=== PATIENT | male | born 1955 | race Caucasian/White ===

== ENCOUNTER 2022-10-17 11:13 | Emergency (ER) | payer MEDICARE, OTHER, SELFPAY ==
[2022-10-17 11:52] VITALS: BP 131/66; PULSE 104; RESP 15; TEMP 37.1; O2SAT 99; BMI 26.9
--- NOTE | 2022-10-17 12:07 | W.ED.MALEGU ---
HPI - Male Genitourinary General: Chief complaint: Urogenital-Male Stated complaint: urinary pain Time Seen by Provider: 10/17/22 12:03 Source: patient Mode of arrival: EMS History of Present Illness: 67-year-old male presents emergency room unable to urinate. He gets a little bit of urine from the bladder at a time but last 3 days he has not been able to empty his bladder completely. No hematuria. He does have a history of BPH. He states he had several falls ultimately resulting in him being unable to move his right leg only. He has no other deficits. He tells me he has had extensive evaluation and they found no cause for. He states he occasionally can move the right leg a little bit but has no functional use of he is reliant on a wheelchair now. Up till now he is not had neurogenic bladder, but he has had enlarged prostate issues. In the past he has never had urinary retention. Onset (ago): day(s) (3) Duration: constant Location: abdomen Severity: moderate Quality: aching Relieving factors: none Exacerbating factors: none Associated symptoms: Deny discharge, dysuria, fevers/chills, hematuria, nausea, rash, swelling, urinary retention, mass or vomiting Review of Systems Const: Denies: fever(s), chills, body aches, change in appetite, fatigue or malaise ENMT: Denies: throat pain, ear or mastoid pain, nasal discharge or nasal congestion Card: Denies: chest pain, palpitations, edema, dyspnea on exertion or orthopnea Resp: Denies: dyspnea, productive cough or non-productive cough GI: Reports: abdominal pain; Denies: nausea or vomiting : Reports: difficulty urinating, difficulty starting urination and oliguria; Denies: dysuria or hematuria Skin/Breast: Denies: rash or pruritus PFSH ED PFSH: Medical History (Updated 10/17/22 @ 16:05 by Hilario Gallagher DO) BPH (benign prostatic hyperplasia) Paralysis of right lower extremity Social History (Updated 10/17/22 @ 12:26 by Hilario Gallagher DO) Smoking and tobacco status: current every day smoker Alcohol intake: never Physical Exam Const: GENERAL APPEARANCE: cooperative and comfortable ORIENTATION/CONSCIOUSNESS: Yes awake, Yes oriented to person, Yes oriented to place and Yes oriented to time HENMT: COMMON NORMALS: normocephalic, atraumatic and hearing grossly normal bilaterally HEAD & SCALP: normocephalic and atraumatic Resp: COMMON NORMALS: normal respiratory effort, No retractions, No use of accessory muscles and clear to auscultation bilaterally AUSCULTATION: clear to auscultation bilaterally Cardio: COMMON NORMALS: regular rate, regular rhythm and No murmurs present (Cardio) RATE: regular rate RHYTHM: regular rhythm GI: COMMON NORMALS: No hepatosplenomegaly present AUSCULTATION: Yes normoactive bowel sounds PALPATION: Yes Tenderness to palpation present (GI) (Suprapubic with the bladder palpable to the level of the umbilicus), No Guarding due to palpation present (GI) and Yes No hepatosplenomegaly present Extremity: COMMON NORMALS: normal to inspection, capillary refill normal, no clubbing, cyanosis or edema, no calf tenderness and no pedal edema Neuro: SENSORIUM/ORIENTATION: Yes oriented to person, Yes oriented to place and Yes oriented to time Skin: COMMON NORMALS: no rashes or lesions noted GENERAL SKIN EXAM: no rashes or lesions noted Course Vital Signs: Vital signs: Vital Signs Temperature 98.7 F 10/17/22 11:52 Pulse Rate 110 H 10/17/22 17:14 Respiratory Rate 15 10/17/22 11:52 Blood Pressure 131/66 10/17/22 11:52 Pulse Oximetry 98 10/17/22 17:14 Oxygen Delivery Me thod 10/17/22 17:14 MDM - Male Medical Decision Making Labs and imaging reviewed. Initially thought patient had urinary obstruction placed a Nunez and he had very little return. He does feel better after fluids. He would like to go home he was given dose of IV antibiotics we will discharge home on Cipro return if has any worsening of symptoms. Nunez removed prior to discharge. Medical Records I reviewed the patient's medical records. Lab Data I reviewed the patient's lab results. 10/17/22 12:45 10/17/22 12:45 Radiology Impressions Abdomen/Pelvis CT 10/17/22 12:33 IMPRESSION: 1. No renal obstruction. 2. Nunez catheter in a nondistended urinary bladder. 3. Postsurgical changes upper pole RIGHT kidney with partial nephrectomy. No prior studies for comparison to evaluate for subtle change. 4. Prior cholecystectomy and appendectomy. 5. Distal colon diverticulosis without acute diverticulitis. Laboratory Results WBC 15.0 10^3/uL (4.0-10.0) H 10/17/22 12:45 RBC 6.09 10^6/uL (4.1-5.3) H 10/17/22 12:45 Hgb 18.2 g/dL (11.7-16.6) H 10/17/22 12:45 Hct 54.0 % (42.0-52.0) H 10/17/22 12:45 MCV 88.7 fl (80-94) 10/17/22 12:45 MCH 29.9 pg (28.0-34.0) 10/17/22 12:45 MCHC 33.7 g/dL (30.0-36.0) 10/17/22 12:45 RDW 13.4 % (12.1-15.1) 10/17/22 12:45 Plt Count 186 10^3/cmm (130-400) 10/17/22 12:45 MPV 9.3 fL (7.4-10.4) 10/17/22 12:45 Neut % (Auto) 73.1 % 10/17/22 12:45 Lymph % (Auto) 15.7 % 10/17/22 12:45 Hendry % (Auto) 10.0 % 10/17/22 12:45 Eos % (Auto) 0.4 % 10/17/22 12:45 Baso % (Auto) 0.3 % 10/17/22 12:45 Neut # (Auto) 10.94 10^3/uL (1.8-7.7) H 10/17/22 12:45 Lymph # (Auto) 2.3 10^3/uL (0.8-4.8) 10/17/22 12:45 Hendry # (Auto) 1.5 10^3/uL (0.2-0.9) H 10/17/22 12:45 Eos # (Auto) 0.1 10^3/uL (0.0-0.8) 10/17/22 12:45 Baso # (Auto) 0.0 10^3/uL (0.0-0.1) 10/17/22 12:45 Nucleated RBC % (auto) 0 % 10/17/22 12:45 Nucleated RBCs # 0.0 /100WBC 10/17/22 12:45 Sodium 137 mmol/L (136-145) 10/17/22 12:45 Potassium 4.4 mmol/L (3.5-5.1) 10/17/22 12:45 Chloride 98 mmol/L (98-107) 10/17/22 12:45 Carbon Dioxide 28 mmol/L (22-29) 10/17/22 12:45 Anion Gap 15.4 (5-19) 10/17/22 12:45 BUN 18 mg/dL (8-23) 10/17/22 12:45 Creatinine 0.8 mg/dL (0.7-1.2) 10/17/22 12:45 GFR Calculation 97.0 mL/min (90-130) 10/17/22 12:45 Glucose 90 mg/dL (65-115) 10/17/22 12:45 Calculated Osmolality 285 mOsm/kg (285-295) 10/17/22 12:45 Calcium 9.8 mg/dL (8.5-10.5) 10/17/22 12:45 Urine Color Tatiana (Yellow) 10/17/22 12:30 Urine Appearance Clear (CLEAR) 10/17/22 12:30 Urine pH 5 (5-7) 10/17/22 12:30 Ur Specific [place] 1.020 (1.005-1.030) 10/17/22 12:30 Urine Protein 1+ (Negative) H 10/17/22 12:30 Urine Glucose (UA) Norm (Normal) 10/17/22 12:30 Urine Ketones 1+ (Negative) H 10/17/22 12:30 Urine Blood 3+ (Negative) H 10/17/22 12:30 Urine Nitrate Negative (Negative) 10/17/22 12:30 Urine Bilirubin Neg (Negative) 10/17/22 12:30 Urine Urobilinogen 1 mg/dL (Negative) H 10/17/22 12:30 Ur Leukocyte Esterase 2+ (Negative) H 10/17/22 12:30 Urine RBC 5-10 /hpf (0-2) H 10/17/22 12:30 Urine WBC 15-25 /hpf (0-5) H 10/17/22 12:30 Ur Squamous Epith Cells 0-4 /hpf (0-5) H 10/17/22 12:30 Amorphous Sediment Not Reportable 10/17/22 12:30 Urine Bacteria 3+ /hpf (NONE) H 10/17/22 12:30 Discharge Plan Discharge Patient Disposition: Home Clinical Impression: Cystitis Condition: Stable Prescriptions: New Cipro 500 mg tablet 500 mg PO BID 10 Days Qty: 20 0RF No Action Sleep Aid (diphenhydramine) 50 mg Capsule 50 mg PO QPM PRN (Reason: Sleep) sertraline 100 mg Tablet 100 mg PO DAILY Stool Softener 50 mg Capsule 50 mg PO DAILY tamsulosin 0.4 mg Capsule 0.8 mg PO DAILY ibuprofen 600 mg Tablet 600 mg PO Q6H PRN (Reason: Pain) finasteride 5 mg Tablet 5 mg PO DAILY Excedrin Migraine 250-250-65 mg Tablet 2 tab PO Q6H PRN (Reason: Headache) Vitamin D3 50 mcg (2,000 unit) Capsule 50 mcg PO DAILY Discharge Orders: Discharge ED (Routine); Ordered 10/17/22 Ordered By: Hilario Gallagher Discharge Diet: Usual diet Discharge Activity: Resume usual activity Activity Restrictions/Additional Instructions: You are seen in the emergency room for difficulty with urination. And found to have a bladder infection. Recommend starting Cipro 500 twice a day for 10 days follow-up with your primary care doctor. Coding Level of Care Code ED [employer] Operator for Anali Fwd Exam Detailed
--- NOTE | 2022-10-17 12:33 | CT_ITS ---
WS: [id number] CT ABDOMEN AND PELVIS NONCONTRAST HISTORY: urinary retention TECHNIQUE: Imaging performed through the abdomen and pelvis. Coronal and sagittal reformats are submi tted. All CT scans at [facility] use at least one of these dose optimization techniques: auto mated exposure control; mA and/or kV adjustment per patient size (includes targeted exams where dose is matched to clinical indication); or iterative reconstruction. DLP: 726.16 mGy.cm COMPARISON: None available. Lower thorax: Lung bases are clear. Visualized heart is normal. No hiatal hernia. Liver: Normal size liver. No mass or bile duct dilatation. Gallbladder: Prior cholecystectomy. Pancreas: Normal size and attenuation. Normal pancreatic duct. No pancreatitis or mass. Spleen: Normal. Adrenal glands: Normal. No mass. Right kidney: Postsurgical changes involving the superior pole of the RIGHT kidney. No prior studies for comparison. No recurrent solid mass is identified. Comparison with prior imaging studies would be very helpful to evaluate for subtle change. Partial nephrectomy. No obstruction. Left kidney: Mild perinephric stranding. No obstruction. Aorta: Mild atherosclerosis. No free fluid, intraperitoneal air or significant lymphadenopathy. GI tract: Nondistended stomach. No small bowel obstruction or wall thickening. Prior appendectomy. Mi ld fecal retention throughout the colon. Numerous diverticula beginning in the descending colon throu gh the sigmoid. No acute diverticulitis. Abdominal wall: Negative. No hernia. Pelvis: Nunez catheter present in a nondistended urinary bladder. There is mild bladder wall thickeni ng surrounding the catheter which is probably due to the nondistention. Mild prostate gland enlargeme nt. No free fluid or adenopathy. Osseous structures: Unremarkable. CT/CT kidney stone [id number] IMPRESSION: 1. No renal obstruction. 2. Nunez catheter in a nondistended urinary bladder. 3. Postsurgical changes upper pole RIGHT kidney with partial nephrectomy. No p rior studies for comparison to evaluate for subtle change. 4. Prior cholecystectomy and appendectomy. 5. Distal colon diverticulosis without acute diverticulitis.
[2022-10-17 12:57] LABS: Add Urine Microscopic? YES; Bilirubin Urine Neg (Negative); Blood Urine 3+ (Negative); Glucose Urine UA Norm (Normal); Ketones Urine 1+ (Negative); Leukocyte Esterase Urine 2+ (Negative); Nitrate Urine Negative (Negative); Protein Urine 1+ (Negative); Urine Appearance Clear (CLEAR); Urine Color Amber (Yellow); Urobilinogen Urine 1 mg/dL (Negative); pH Urine 5 (5-7)
[2022-10-17 13:03] LABS: Add Urine Culture? Yes; Bacteria Urine 3+ /hpf; Squamous Epithelial Cell Urine 0-4 /hpf (0-5); WBC Urine 15-25 /hpf (0-5)
[2022-10-17 13:06] LABS: Basophils % 0.3 %; Eosinophils # 0.1 10^3/uL (0.0-0.8); Eosinophils % 0.4 %; Hemoglobin 18.2 g/dL (11.7-16.6); Lymphocytes # 2.3 10^3/uL (0.8-4.8); Lymphocytes % 15.7 %; Mean Corpuscular HGB Conc 33.7 g/dL (30.0-36.0); Mean Corpuscular Hemoglobin 29.9 pg (28.0-34.0); Mean Corpuscular Volume 88.7 fl (80-94); Mean Platelet Volume 9.3 fL (7.4-10.4); Monocytes # 1.5 10^3/uL (0.2-0.9); Neutrophils # 10.94 10^3/uL (1.8-7.7); Neutrophils % 73.1 %; Nucleated Red Blood Cells % 0 %; Platelet Count 186 10^3/cmm (130-400); Red Blood Count 6.09 10^6/uL (4.1-5.3); Red Cell Distribution Width 13.4 % (12.1-15.1)
[2022-10-17 13:24] LABS: Anion Gap 15.4 (5-19); Blood Urea Nitrogen 18 mg/dL (8-23); Calcium 9.8 mg/dL (8.5-10.5); Carbon Dioxide 28 mmol/L (22-29); Chloride 98 mmol/L (98-107); Glucose 90 mg/dL (65-115); Osmolality Calculated 285 mOsm/kg (285-295); Potassium 4.4 mmol/L (3.5-5.1); Sodium 137 mmol/L (136-145)
[2022-10-17] MEDS: sodium chloride 0.9% 1,000 ML 999 ML IV (15:37)
[2022-10-17] MEDS: cefTRIAXone 1,000 MG in sodium chloride 0.9% (plus) 50 ML 100 MG IV (15:38)
[2022-10-17 15:44] VITALS: PULSE 99; O2SAT 99
[2022-10-17 17:14] VITALS: PULSE 110; O2SAT 98
== END 2022-10-17 19:45 | disposition home or self-care (01) ==
PROVIDERS: Emergency Provider Family Medicine
DX: N30.90 Cystitis, unspecified without hematuria (principal); F17.210 Nicotine dependence, cigarettes, uncomplicated; N40.0 Benign prostatic hyperplasia without lower urinary tract symptoms
CPT/HCPCS: 36415; 51702; 74176; 80048; 81001; 85025; 87040; 87077; 87086; 87186; 96365; 99284; J0696; J7030

== ENCOUNTER → 2023-04-18 09:08 | Outpatient (BNVA) | payer MEDICARE, OTHER, SELFPAY | PROVIDERS: PCP Clinical Nurse Specialist Adult Health; Visit Provider Clinical Nurse Specialist Adult Health | DX: M62.838 Other muscle spasm (principal); N40.0 Benign prostatic hyperplasia without lower urinary tract symptoms; F32.9 Major depressive disorder, single episode, unspecified; E66.9 Obesity, unspecified | CPT/HCPCS: 80053; 80061; 85025 ==

== ENCOUNTER → 2023-10-03 10:42 | Outpatient (BNVA) | payer MEDICARE, OTHER, SELFPAY | PROVIDERS: PCP Clinical Nurse Specialist Adult Health; Referring Provider Clinical Nurse Specialist Adult Health; Visit Provider Anesthesiology Pain Medicine | DX: M54.9 Dorsalgia, unspecified (principal); G89.29 Other chronic pain; M62.81 Muscle weakness (generalized); Z91.81 History of falling | CPT/HCPCS: 99205 ==

== ENCOUNTER → 2023-10-08 09:14 | Outpatient (BNVA) | payer MEDICARE, OTHER, SELFPAY | PROVIDERS: PCP Clinical Nurse Specialist Adult Health; Visit Provider Clinical Nurse Specialist Adult Health | DX: J06.9 Acute upper respiratory infection, unspecified (principal); H61.22 Impacted cerumen, left ear; H60.92 Unspecified otitis externa, left ear; H60.392 Other infective otitis externa, left ear | CPT/HCPCS: 87426 ==

== ENCOUNTER → 2023-11-04 10:26 | Outpatient (BNVA) | payer MEDICARE, OTHER, SELFPAY | PROVIDERS: PCP Clinical Nurse Specialist Adult Health; Visit Provider Anesthesiology Pain Medicine | DX: M54.9 Dorsalgia, unspecified (principal); G89.29 Other chronic pain; M62.81 Muscle weakness (generalized) | CPT/HCPCS: 99215 ==

== ENCOUNTER → 2023-12-17 13:32 | Outpatient (BNVA) | payer MEDICARE, SELFPAY | PROVIDERS: PCP Clinical Nurse Specialist Adult Health; Visit Provider Clinical Nurse Specialist Adult Health | DX: N39.0 Urinary tract infection, site not specified (principal) | CPT/HCPCS: 81000; 87086 ==

== ENCOUNTER → 2024-01-15 07:22 | Outpatient (BNVA) | payer MEDICARE, SELFPAY | PROVIDERS: PCP Clinical Nurse Specialist Adult Health; Referring Provider Anesthesiology Pain Medicine; Visit Provider Psychiatry & Neurology Neurology | DX: G83.11 Monoplegia of lower limb affecting right dominant side (principal); R29.90 Unspecified symptoms and signs involving the nervous system; M62.81 Muscle weakness (generalized); M62.838 Other muscle spasm; R29.898 Other symptoms and signs involving the musculoskeletal system; E55.9 Vitamin D deficiency, unspecified; M54.9 Dorsalgia, unspecified; G89.29 Other chronic pain | CPT/HCPCS: 36415; 82306; 82565; 82607; 82746; 83735; 83921; 84520; 86592; 86617; 86780; 99203 ==

== ENCOUNTER 2024-01-24 08:13 | Outpatient (CLI) | payer MEDICARE, SELFPAY ==
--- NOTE | 2024-01-24 08:27 | CT_ITS ---
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 TECHNIQUE: Imaging performed of the abdomen and pelvis with IV contrast. Single phase imaging of the abdomen. Coronal and sagittal reformats are submitted. All CT scans at [facility] use at nat st one of these dose optimization techniques: automated exposure control; mA and/or kV adjustment per patient size (includes targeted exams where dose is matched to clinical indication); or iterative re construction. IV CONTRAST: Omnipaque 350; 100 mL IV. Oral contrast: No DLP: 456.53 mGy.cm COMPARISON: Noncontrast CT 10/17/2022 Lower thorax: Lung bases are clear. Heart is normal size. No hiatal hernia. Liver/biliary system: Normal size with no intrahepatic dilatation. Gallbladder: Status post cholecystectomy. Pancreas: Normal size pancreas and pancreatic duct. No adjacent inflammation. Spleen: Normal size spleen. No mass or infarct. Adrenal glands: Normal. Right kidney: Partial RIGHT nephrectomy. Postsurgical changes in the upper pole are identified and si milar to the prior noncontrast CT. No obstruction or mass. Left kidney: Normal. Aorta: Normal. Lymphadenopathy: None. Free fluid: None. GI tract: Nondistended stomach. No small bowel obstruction. Numerous diverticula in the descending an d sigmoid colon. No acute diverticulitis. Abdominal wall: Unremarkable abdominal wall. No hernia. Pelvis: Well-distended urinary bladder. Mild prostate gland heterogeneity and enlargement. There is m ild symmetric volume loss and atrophy of the muscles throughout the pelvis and the psoas muscles. No asymmetry. Bones: Unremarkable. IMPRESSION: 1. No acute abdominal or pelvic abnormalities. 2. Prior cholecystectomy. No bile duct dilatation. 3. Partial nephrectomy superior pole RIGHT kidney is stable. 4. Mild diverticular disease and constipation. 5. Mild bilateral, symmetric muscle atrophy throughout the pelvis including the psoas muscles.
[2024-01-24] MEDS: iohexol 350 mg/mL 500 mL Btl (per mL) IV (08:44)
== END 2024-01-24 08:14 | disposition home or self-care (01) ==
LOC: RAD 08:13
PROVIDERS: PCP Clinical Nurse Specialist Adult Health; Visit Provider Psychiatry & Neurology Neurology
DX: M62.58 Muscle wasting and atrophy, not elsewhere classified, other site (principal); G81.91 Hemiplegia, unspecified affecting right dominant side; M54.9 Dorsalgia, unspecified; G89.29 Other chronic pain; M62.838 Other muscle spasm; M62.81 Muscle weakness (generalized)
CPT/HCPCS: 74177; Q9967

== ENCOUNTER → 2024-01-27 10:17 | Outpatient (BNVA) | payer MEDICARE, SELFPAY | PROVIDERS: PCP Clinical Nurse Specialist Adult Health; Visit Provider Anesthesiology Pain Medicine | DX: M54.9 Dorsalgia, unspecified (principal); G89.29 Other chronic pain; M62.81 Muscle weakness (generalized) | CPT/HCPCS: 99214 ==

== ENCOUNTER → 2024-02-05 09:12 | Outpatient (BNVA) | payer MEDICARE, SELFPAY | PROVIDERS: PCP Clinical Nurse Specialist Adult Health; Referring Provider Internal Medicine; Visit Provider Surgery | DX: Z12.11 Encounter for screening for malignant neoplasm of colon (principal) | CPT/HCPCS: 99024; 99204 ==

== ENCOUNTER 2024-02-18 15:30 | Oncology outpatient (recurring) (ONCR) | payer MEDICARE, SELFPAY ==
[2024-01-28 13:49] LABS: Basophils # 0.1 10^3/uL (0.0-0.1); Basophils % 0.8 %; Eosinophils # 0.2 10^3/uL (0.0-0.8); Eosinophils % 3.1 %; Hematocrit 55.7 % (37-53); Lymphocytes # 2.2 10^3/uL (0.8-4.8); Lymphocytes % 27.7 %; Mean Corpuscular HGB Conc 34.5 g/dL (30-55); Mean Corpuscular Hemoglobin 30.6 pg (27-33); Mean Corpuscular Volume 88.7 fl (82-101); Mean Platelet Volume 8.8 fL (7.4-10.4); Monocytes # 0.6 10^3/uL (0.2-0.9); Monocytes % 7.8 %; Neutrophils % 60.3 %; Nucleated Red Blood Cells % 0 %; Platelet Count 188 10^3/cmm (157-399); Red Blood Count 6.28 10^6/uL (3.85-5.65); Red Cell Distribution Width 13.8 % (12.1-15.1); Reticulocyte % 1.1 % (0.5-2.0); White Blood Count 7.79 10^3/uL (3.29-11.43)
[2024-01-28 14:10] LABS: Alanine Aminotransferase 18 U/L (0-41); Albumin Level 4.4 g/dL (3.5-5.2); Alkaline Phosphatase 70 U/L (40-130); Anion Gap 17.2 (5-19); Aspartate Amino Transferase 19 U/L (0-40); Blood Urea Nitrogen 13 mg/dL (8-23); Calcium 9.1 mg/dL (8.5-10.5); Carbon Dioxide 24 mmol/L (22-29); Chloride 98 mmol/L (98-107); Creatinine Clr Calc Pharmacy 97.0628; Globulin 3.3 g/dL (1.3-4.6); Glomerular Filtration Rate 112.8 mL/min (90-130); Glucose 98 mg/dL (65-115); Osmolality Calculated 280 mOsm/kg (285-295); Potassium 4.2 mmol/L (3.5-5.1); Sodium 135 mmol/L (136-145); Total Bilirubin 0.6 mg/dL (0.15-1.2); Total Protein 7.7 g/dL (6.6-8.7)
[2024-01-28 14:12] LABS: Lactate Dehydrogenase 178 U/L (135-225)
[2024-01-30 12:33] LABS: Erythropoietin 9.9 mIU/mL (2.6-18.5)
[2024-02-04 16:19] LABS: Basophils % 0.5 %; Eosinophils # 0.1 10^3/uL (0.0-0.8); Eosinophils % 1.4 %; Hematocrit 59.3 % (37-53); Lymphocytes # 1.8 10^3/uL (0.8-4.8); Lymphocytes % 21.8 %; Mean Corpuscular HGB Conc 33.1 g/dL (30-55); Mean Corpuscular Hemoglobin 30.1 pg (27-33); Mean Corpuscular Volume 91.1 fl (82-101); Mean Platelet Volume 9.1 fL (7.4-10.4); Monocytes # 0.9 10^3/uL (0.2-0.9); Monocytes % 11.2 %; Neutrophils # 5.25 10^3/uL (1.8-7.7); Neutrophils % 64.9 %; Nucleated Red Blood Cells % 0 %; Platelet Count 204 10^3/cmm (157-399); Red Blood Count 6.51 10^6/uL (3.85-5.65); Red Cell Distribution Width 13.7 % (12.1-15.1); White Blood Count 8.09 10^3/uL (3.29-11.43)
[2024-02-04 16:34] LABS: Slide Review Slide Review Perform
[2024-02-04 17:16] VITALS: BP 117/84; PULSE 84; RESP 18; TEMP 36.1; O2SAT 98
[2024-02-14 17:09] LABS: CALR Exon 9 Mutation NOT DETECTED (NOT DETECTED); CSF3R Exon 14/17 Mutation NOT DETECTED (NOT DETECTED); JAK2 Exon 12 Mutation NOT DETECTED (NOT DETECTED); JAK2 V617 Block Specimen ID NG; JAK2 V617 Clinical Indication NG; JAK2 V617 Mutation NOT DETECTED (NOT DETECTED); JAK2 V617 Specimen Source LAV; MPL Exon 12 Mutation NOT DETECTED (NOT DETECTED)
== END 2024-02-23 23:59 | disposition home or self-care (01) ==
PROVIDERS: PCP Clinical Nurse Specialist Adult Health; Visit Provider Internal Medicine
DX: Z53.9 Procedure and treatment not carried out, unspecified reason (principal)
CPT/HCPCS: 36415; 80053; 81270; 81279; 81339; 81479; 82668; 83615; 85025; 85045; 99195; 99204

== ENCOUNTER 2024-02-21 08:32 | Outpatient (CLI) | payer MEDICARE, SELFPAY ==
--- NOTE | 2024-02-21 08:45 | MR_ITS ---
WS: [id number] MRI LUMBAR SPINE WITH AND WITHOUT CONTRAST HISTORY: Chronic back pain. History of renal cancer. COMPARISON: None available. TECHNIQUE: Sagittal and axial multisequence imaging is submitted. Postcontrast imaging MultiHance 16 mL. Cervical survey demonstrates mild disc and osteophyte protrusions at C5-6 and C6-7 with slight contac t on the cervical cord. Mild straightening of the normal lumbar lordosis. Posterior alignment is normal. Disc spaces and vertebral body heights are well-preserved. Conus terminates normally at L1-2 disc level. L1-L2: Mild annular disc bulging and facet arthritis. Very shallow LEFT foraminal disc protrusion. No stenosis. L2-L3: Mild annular disc bulging with ligamentum flavum and facet arthritis. Mild encroachment upon t he subarticular recesses but no stenosis. L3-L4: Mild annular disc bulging with ligamentum flavum and facet arthritis. No stenosis. L4-L5: Mild annular disc bulging with moderate ligamentum flavum and facet arthritis. Disc encroachme nt upon the subarticular recesses. There is mild contact and deformity of the traversing L5 nerve erick ts, LEFT greater than RIGHT. Mild central, bilateral subarticular recess and no foraminal stenosis. L5-S1: Mild annular disc bulge. Mild facet joint arthritis. Fluid in the facet joints. No stenosis or disc protrusion. No discitis or osteomyelitis. No enhancing mass. IMPRESSION: 1. No metastatic disease or discitis or osteomyelitis. 2. L4-5: Mild encroachment upon the subarticular recesses and the traversing L5 nerve roots, LEFT gr eater than RIGHT. Mild central, bilateral subarticular recess with no foraminal stenosis. 3. No high-grade central or foraminal stenosis. 4. Facet joint arthritis throughout the lumbar spine, moderate and most significant at L4-5.
[2024-02-21] MEDS: gadobenate dimeglumine 20 mL vial IV (09:26)
== END 2024-02-21 08:33 | disposition home or self-care (01) ==
LOC: RAD 08:32
PROVIDERS: PCP Clinical Nurse Specialist Adult Health; Visit Provider Psychiatry & Neurology Neurology
DX: R29.898 Other symptoms and signs involving the musculoskeletal system (principal); M62.81 Muscle weakness (generalized); G83.11 Monoplegia of lower limb affecting right dominant side; M62.838 Other muscle spasm
CPT/HCPCS: 72158; A9577

== ENCOUNTER → 2024-02-27 10:19 | Outpatient (BNVA) | payer MEDICARE, SELFPAY | PROVIDERS: PCP Clinical Nurse Specialist Adult Health; Visit Provider Anesthesiology Pain Medicine | DX: M54.9 Dorsalgia, unspecified (principal); G89.29 Other chronic pain; M62.81 Muscle weakness (generalized) | CPT/HCPCS: 99214 ==

== ENCOUNTER 2024-03-19 20:00 | Outpatient (CLI) | payer MEDICARE, SELFPAY | END 2024-03-19 20:01 | disposition home or self-care (01) | LOC: SLEEP 03-20 06:13 | PROVIDERS: PCP Clinical Nurse Specialist Adult Health; Visit Provider Internal Medicine | DX: G47.30 Sleep apnea, unspecified (principal) | CPT/HCPCS: 95810 ==

== ENCOUNTER → 2024-03-24 08:40 | Outpatient (BNVA) | payer MEDICARE, SELFPAY | PROVIDERS: PCP Clinical Nurse Specialist Adult Health; Visit Provider Orthopaedic Surgery | DX: M54.2 Cervicalgia; M54.9 Dorsalgia, unspecified; G89.29 Other chronic pain | CPT/HCPCS: 99214 ==

== ENCOUNTER 2024-04-23 09:09 | Outpatient (CLI) | payer MEDICARE, SELFPAY ==
--- NOTE | 2024-04-23 09:30 | MR_ITS ---
WS: [id number] MRI THORACIC SPINE with and without contrast HISTORY: Back Pain COMPARISON: None available. TECHNIQUE: Multiplanar sequences are performed in sagittal and axial planes. Postcontrast imaging wit h MultiHance 16 mL IV. Straightening of the normal thoracic kyphosis. No fractures or marrow edema. No vertebral body or dis c enhancement. No epidural abscess. Signal within the cord is normal. No cord enlargement or atrophy. Facet joint arthritis is mild throughout the thoracic spine. More moderate facet arthritis beginning at the T7-8 level through T12-L1. No significant foraminal stenosis. There is no focal disc protrusio n or significant stenosis. MR/MR thoracic spine wo/w [id number] IMPRESSION: 1. Straightening of the normal thoracic kyphosis. 2. Mild to moderate facet joint arthritis throughout the thoracic spine. Moder ate facet arthritis from T7-8 through T12-L1. No central stenosis. 3. No discitis or osteomyelitis.
--- NOTE | 2024-04-23 10:15 | MR_ITS ---
WS: [id number] MRI CERVICAL SPINE with and without contrast HISTORY: Neck Pain COMPARISON: None available. Technique: Multiplanar, multisequence noncontrast imaging of the cervical spine. Postcontrast MRI Mul tiHance 16 mL IV. Straightening normal cervical lordosis. 2 mm retrolisthesis of C5 and C6. Endplate osteophytes and di sc space narrowing. No acute fracture. No cord atrophy or enlargement. Signal within the cervical cord is normal. Visualized posterior fossa is unremarkable. Craniocervical junction, C1 and C2 relationship, odontoid process and soft tissues are normal. C2-C3: Tiny central disc protrusion and facet arthritis. No stenosis. C3-C4: Mild bilateral facet arthritis and foraminal osteophytes. Mild foraminal narrowing. C4-C5: Mild osteophytic ridging and facet arthritis. Mild bilateral foraminal stenosis. C5-C6: Mild diffuse annular disc bulging with a central disc protrusion. Bilateral facet joint arthri tis with moderate bilateral foraminal stenosis due to disc osteophyte complexes. Moderate central horacio nosis. C6-C7: Osteophytic ridging with a central disc protrusion. Bilateral facet arthritis. Mild central st enosis with moderate bilateral foraminal stenosis. C7-T1: No stenosis. Paravertebral soft tissues are normal. There are no areas of abnormal enhancement. No discitis or ost eomyelitis. No epidural abscess or mass. MR/MR cervical spine wo/w [id number] IMPRESSION: 1. C5-6 and C6-7: Moderate central and moderate bilateral foraminal stenosis d ue to disc osteophyte disease. Additional bilateral facet joint arthritis. 2. C3-4 and C4-5: Mild bilateral foraminal stenosis due to disc osteophyte dis ease. 3. No abnormal enhancement. No discitis or osteomyelitis. No mass.
== END 2024-04-23 09:10 | disposition home or self-care (01) ==
LOC: RAD 09:10
PROVIDERS: PCP Clinical Nurse Specialist Adult Health; Visit Provider Orthopaedic Surgery
DX: M99.61 Osseous and subluxation stenosis of intervertebral foramina of cervical region (principal); M25.78 Osteophyte, vertebrae; M50.20 Other cervical disc displacement, unspecified cervical region
CPT/HCPCS: 72156; 72157; A9577

== ENCOUNTER 2024-04-29 11:30 | Oncology outpatient (recurring) (ONCR) | payer MEDICARE, SELFPAY ==
[2024-04-29 11:53] LABS: Basophils % 0.5 %; Eosinophils # 0.1 10^3/uL (0.0-0.8); Eosinophils % 1.7 %; Hematocrit 54.4 % (37-53); Lymphocytes # 1.7 10^3/uL (0.8-4.8); Lymphocytes % 27.2 %; Mean Corpuscular HGB Conc 34.4 g/dL (30-55); Mean Corpuscular Hemoglobin 29.8 pg (27-33); Mean Corpuscular Volume 86.8 fl (82-101); Mean Platelet Volume 9.2 fL (7.4-10.4); Monocytes # 0.6 10^3/uL (0.2-0.9); Monocytes % 9.7 %; Neutrophils # 3.88 10^3/uL (1.8-7.7); Neutrophils % 60.7 %; Nucleated Red Blood Cells % 0 %; Platelet Count 180 10^3/cmm (157-399); Red Blood Count 6.27 10^6/uL (3.85-5.65); Red Cell Distribution Width 13.1 % (12.1-15.1); White Blood Count 6.39 10^3/uL (3.29-11.43)
[2024-04-29 12:15] LABS: Alanine Aminotransferase 25 U/L (0-41); Albumin Level 4.4 g/dL (3.5-5.2); Alkaline Phosphatase 59 U/L (40-130); Anion Gap 15.4 (5-19); Aspartate Amino Transferase 22 U/L (0-40); Blood Urea Nitrogen 12 mg/dL (8-23); Carbon Dioxide 22 mmol/L (22-29); Chloride 102 mmol/L (98-107); Glomerular Filtration Rate 134.8 mL/min (90-130); Glucose 107 mg/dL (65-115); Osmolality Calculated 280 mOsm/kg (285-295); Potassium 4.4 mmol/L (3.5-5.1); Sodium 135 mmol/L (136-145); Total Bilirubin 0.4 mg/dL (0.15-1.2); Total Protein 7.4 g/dL (6.6-8.7)
[2024-04-29 14:57] LABS: Vitamin B12 1245 pg/mL (232-1245)
[2024-04-29 15:25] VITALS: BP 133/72; PULSE 88; RESP 18; TEMP 36.6; O2SAT 96
[2024-05-03 02:44] LABS: Methylmalonic Acid 83 nmol/L (87-318)
== END 2024-05-24 23:59 | disposition home or self-care (01) ==
PROVIDERS: PCP Clinical Nurse Specialist Adult Health; Visit Provider Internal Medicine
DX: E53.8 Deficiency of other specified B group vitamins (principal); D75.1 Secondary polycythemia
CPT/HCPCS: 36415; 72100; 80053; 82607; 83921; 85025; 99195; 99204; 99214

== ENCOUNTER → 2024-04-30 09:29 | Outpatient (BNVA) | payer MEDICARE, SELFPAY | PROVIDERS: PCP Clinical Nurse Specialist Adult Health; Visit Provider Orthopaedic Surgery | DX: Z09 Encounter for follow-up examination after completed treatment for conditions other than malignant neoplasm (principal) | CPT/HCPCS: 99214 ==

== ENCOUNTER 2024-05-21 08:50 | Day surgery (SDC) | payer MEDICARE, SELFPAY ==
[2024-05-21 09:09] VITALS: BP 134/75; PULSE 93; RESP 16; TEMP 36.9; O2SAT 95; BMI 25.0
[2024-05-21] MEDS: sodium chloride 0.9% 1,000 ML 30 ML IV (09:14)
--- NOTE | 2024-05-21 09:37 | W.PM.OPSFHP ---
Same Day Surgery H&P Indication for Procedure/HPI DATE OF PROCEDURE: May 21, 2024 CHIEF COMPLAINT/INDICATIONFOR SURGICAL PROCEDURE: encounter for screening colonoscopy PREOP DIAGNOSIS: encounter for screening colonoscopy PLANNED PROCEDURE: Operation Date: 05/21/24 09:55 Proposed Procedures p Colonoscopy 50636, G0121, Z12.11(Not Applicable) - Inocencio Israel MD Medications/Allergies* Home Medications Medication Instructions Recorded Confirmed Type [id number] 250 2 tab PO Q6H PRN Headache 10/17/22 05/21/24 History mg-250 mg-65 mg tablet (Excedrin Migraine) cholecalciferol (vitamin D3) 50 50 mcg PO DAILY 10/17/22 05/21/24 History mcg (2,000 unit) capsule (Vitamin D3) diphenhydramine HCl 50 mg capsule 50 mg PO QPM PRN Sleep 10/17/22 05/21/24 History (Sleep Aid (diphenhydramine)) docusate sodium 50 mg capsule 50 mg PO DAILY 10/17/22 05/21/24 History (Stool Softener) diphenhydramine HCl 25 mg capsule 25 mg PO TID PRN Allergy Symptoms 04/18/23 05/21/24 History (Allergy Relief (diphenhydramine)) timolol maleate 0.25 % eye drops 2 drp ophthalmic (eye) DAILY 04/18/23 05/21/24 History gabapentin 300 mg capsule 300 mg PO TID PRN pain 05/19/24 05/21/24 History Allergies/Adverse Reactions Allergy/AdvReac Type Severity Reaction Status Date / Time magnesium citrate Allergy sweating Verified 05/21/24 09:05 all over/ vomiting meperidine [From Demerol] Allergy ADR/ALGY-Pa Verified 05/21/24 09:05 lpitations procaine [From Novocain] Allergy ADR/ALGY-Pa Verified 05/21/24 09:05 lpitations Current Medications: Generic Name Dose Route Start Last Admin Trade Name Freq PRN Reason Stop Dose Admin Sodium Chloride 1,000 mls @ 30 mls/hr 05/21/24 09:00 05/21/24 09:14 Sodium Chloride 0.9% IV 30 mls/hr .Q24H ERIC Administration Pertinent History/Comorbid Conditions* Medical History (Updated 01/28/24 @ 13:12 by Julia Blood MD) Erythrocytosis B12 nutritional deficiency COVID-19 Chronic back pain greater than 3 months duration Snoring Excessive daytime sleepiness Muscle spasm Bronchitis with bronchospasm Major depression Truncal muscle weakness Seasonal allergies Paralysis of right lower extremity BPH (benign prostatic hyperplasia) Surgical History (Updated 12/25/23 @ 08:17 by Raimundo Mobley NP) Hx of vasectomy History of exploratory laparotomy Hx of right knee surgery Hx of cholecystectomy History of nephrectomy, right hx of partial right nephrectomy Family History (Updated 04/18/23 @ 08:48 by Raimundo Mobley NP) CAD (coronary artery disease) Cancer Denies family history of Diabetes Hypertension Social History Smoking and tobacco/nicotine status: former use of tobacco/nicotine Quit status (tobacco/nicotine): has quit using Year quit tobacco: 2000 Alcohol intake: never Substance/Drug Use: never Household members: spouse Marital status: Pertinent Exam Findings alert, oriented x 3, clear to auscultation bilaterally and regular rate & rhythm Recommendations Surgery/Procedure today Coding Level of Care Code Acute Code for Chg Fwd
--- NOTE | 2024-05-21 10:16 | ANES.PREANE2 ---
Pre-Anesthetic Assessment Height/Weight: Height 1.78 m Weight 78.925 kg Temp Pulse Resp BP Pulse Ox O2 Del Method 98.4 F 93 16 134/75 95 Room Air 05/21/24 09:09 05/21/24 09:09 05/21/24 09:09 05/21/24 09:09 05/21/24 09:09 05/21/24 09:09 Preop Diagnosis: encounter for screening colonoscopy Operation Date: 05/21/24 09:55 Proposed Procedures p Colonoscopy 21285, G0121, Z12.11(Not Applicable) - Inocencio Israel MD Familial anesthetic complications: None Was Beta Jason taken within 24 hours: N/A Was Clonidine taken within 24 hours: N/A Last intake: Intake Last Liquid Date 05/20/24 Last Liquid Time 14:00 Last Solid Date 05/19/24 Last Solid Time 20:00 Social No alcohol and No tobacco Quit in 2000 Exam alert, oriented x 3, clear to auscultation bilaterally and regular rate & rhythm Airway Submandibular: within normal limits Cervical ROM: within normal limits Mallampati: Class II Dentition: false History/ROS No significant history except as noted and No significant complaints Pulmonary None reported CV/HEM High hem count None reported Kidney surgery 2014. Cancer. Removed partial right kidney. Hepatic None reported GI None reported Metabolic None reported Musc/skel None reported Neuropsych Anxiety and Depression Anesthetic Plan ASA status: 2 Anesthesia: MAC Risk of > 500 ml blood loss (7ml/kg in children): No Medications/Allergies Home Medications Medication Instructions Recorded Confirmed Last Taken Type msybvoh-brvzgnbuadixk-tsttogaj 250 2 tab PO Q6H PRN Headache 10/17/22 05/21/24 10/17/22 History mg-250 mg-65 mg tablet (Excedrin Migraine) cholecalciferol (vitamin D3) 50 50 mcg PO DAILY 10/17/22 05/21/24 05/20/24 History mcg (2,000 unit) capsule (Vitamin D3) diphenhydramine HCl 50 mg capsule 50 mg PO QPM PRN Sleep 10/17/22 05/21/24 05/20/24 History (Sleep Aid (diphenhydramine)) docusate sodium 50 mg capsule 50 mg PO DAILY 10/17/22 05/21/24 10/16/22 History (Stool Softener) diphenhydramine HCl 25 mg capsule 25 mg PO TID PRN Allergy Symptoms 04/18/23 05/21/24 05/20/24 History (Allergy Relief (diphenhydramine)) timolol maleate 0.25 % eye drops 2 drp ophthalmic (eye) DAILY 04/18/23 05/21/24 05/21/24 History benzonatate 100 mg capsule 100 mg PO TID PRN cough #45 caps 10/08/23 05/21/24 Unknown Rx albuterol sulfate 90 mcg/actuation 2 puff inhalation Q6H PRN 10/23/23 05/21/24 Unknown Rx aerosol inhaler (ProAir HFA) shortness of breath or wheezing #8.5 grams tizanidine 6 mg capsule 6 mg PO TID PRN muscle spasticity 01/15/24 05/21/24 05/20/24 Rx #90 caps mecobalamin (vitamin B12) 1,000 1,000 mcg PO DAILY #30 tabs 01/28/24 05/21/24 05/20/24 Rx mcg chewable tablet (B12 Active) finasteride 5 mg tablet 5 mg PO DAILY #90 tabs 04/13/24 05/21/24 05/20/24 Rx sertraline 100 mg tablet 100 mg PO DAILY #90 tabs 04/13/24 05/21/24 05/20/24 Rx tamsulosin 0.4 mg capsule 0.8 mg (2 x 0.4 mg) PO DAILY #180 04/13/24 05/21/24 05/20/24 Rx caps gabapentin 300 mg capsule 300 mg PO TID PRN pain 05/19/24 05/21/24 05/20/24 History Allergies Allergy/AdvReac Type Severity Reaction Status Date / Time magnesium citrate Allergy sweating Verified 05/21/24 09:05 all over/ vomiting meperidine [From Demerol] Allergy ADR/ALGY-Pa Verified 05/21/24 09:05 lpitations procaine [From Novocain] Allergy ADR/ALGY-Pa Verified 05/21/24 09:05 lpitations Current Medications Generic Name Dose Route Start Last Admin Trade Name Freq PRN Reason Stop Dose Admin Sodium Chloride 1,000 mls @ 30 mls/hr 05/21/24 09:00 05/21/24 09:14 Sodium Chloride 0.9% IV 30 mls/hr .Q24H ERIC Administration PFSH Anesthesia Medical History Erythrocytosis B12 nutritional deficiency COVID-19 Chronic back pain greater than 3 months duration Snoring Excessive daytime sleepiness Muscle spasm Bronchitis with bronchospasm Major depression Truncal muscle weakness Seasonal allergies Paralysis of right lower extremity BPH (benign prostatic hyperplasia) Surgical History Hx of vasectomy History of exploratory laparotomy Hx of right knee surgery Hx of cholecystectomy History of nephrectomy, right hx of partial right nephrectomy Family History Other CAD (coronary artery disease) Cancer Denies family history of Diabetes Hypertension Social History Smoking and tobacco/nicotine status: former use of tobacco/nicotine Quit status (tobacco/nicotine): has quit using Year quit tobacco: 2000 Alcohol intake: never Substance/Drug Use: never Household members: spouse Marital status: Data Anesthesia Cardiac Studies: No Data to Display
[2024-05-21 11:12] VITALS: BP 105/69; PULSE 84; RESP 18; TEMP 36.4; O2SAT 93
[2024-05-21 11:25] VITALS: BP 122/93; PULSE 73; RESP 18; O2SAT 96
[2024-05-21 11:40] VITALS: BP 115/80; PULSE 80; RESP 18; O2SAT 97
[2024-05-21 11:50] VITALS: BP 119/81; PULSE 76; RESP 18; O2SAT 97
--- NOTE | 2024-05-21 11:55 | ANE.PACU2 ---
Inpatient post-anesthesia follow up: Airway intact: Yes Vital signs: Temperature 97.5 F Pulse Rate 76 Respiratory Rate 18 Blood Pressure 119/81 Pulse Oximetry 97 Oxygen Delivery Me thod Room Air Oxygen Flow Rate Fraction of Inspir ed Oxygen Hydration adequate: Yes Nausea and vomiting: No Pain level: 1 Mental status: Baseline
== END 2024-05-21 11:55 | disposition home or self-care (01) ==
PROVIDERS: PCP Clinical Nurse Specialist Adult Health; Visit Provider Surgery
PROC: 0DJD8ZZ Inspection of Lower Intestinal Tract, Via Natural or Artificial Opening Endoscopic (ICD-10-PCS; CPT 45378; principal; 2024-05-21 09:55)
DX: Z12.11 Encounter for screening for malignant neoplasm of colon (principal); N40.0 Benign prostatic hyperplasia without lower urinary tract symptoms; Z87.891 Personal history of nicotine dependence; K57.30 Diverticulosis of large intestine without perforation or abscess without bleeding
CPT/HCPCS: G0121; J2704; J7030

== ENCOUNTER 2024-05-27 12:47 | Oncology outpatient (recurring) (ONCR) | payer MEDICARE, SELFPAY ==
[2024-05-27 13:53] LABS: Basophils # 0.1 10^3/uL (0.0-0.1); Basophils % 0.8 %; Eosinophils # 0.1 10^3/uL (0.0-0.8); Eosinophils % 1.3 %; Hematocrit 51.9 % (37-53); Lymphocytes # 1.6 10^3/uL (0.8-4.8); Lymphocytes % 26.8 %; Mean Corpuscular HGB Conc 33.5 g/dL (30-55); Mean Corpuscular Hemoglobin 29.2 pg (27-33); Mean Corpuscular Volume 87.2 fl (82-101); Mean Platelet Volume 9.7 fL (7.4-10.4); Monocytes # 0.5 10^3/uL (0.2-0.9); Monocytes % 8.3 %; Neutrophils # 3.74 10^3/uL (1.8-7.7); Neutrophils % 62.5 %; Nucleated Red Blood Cells % 0 %; Platelet Count 184 10^3/cmm (157-399); Red Blood Count 5.95 10^6/uL (3.85-5.65); Red Cell Distribution Width 12.8 % (12.1-15.1)
[2024-05-27 14:35] LABS: Slide Review Slide Review Perform
[2024-05-27 15:28] VITALS: PULSE 84; RESP 16; TEMP 36.6; O2SAT 95
== END 2024-06-24 23:59 | disposition home or self-care (01) ==
LOC: ONCMED 12:47
PROVIDERS: Nurse Practitioner Family; PCP Clinical Nurse Specialist Adult Health; Visit Provider Internal Medicine
DX: D75.1 Secondary polycythemia
CPT/HCPCS: 36415; 85025; 99195

== ENCOUNTER 2024-07-01 12:53 | Oncology outpatient (recurring) (ONCR) | payer MEDICARE, SELFPAY ==
--- OUTSIDE RECORDS SUMMARY | 2024-07-01 12:55 | XMS_ITS | Patient Health Record ---
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 Role Phone Raimundo Mobley APRN Primary Care Provider Alexey Luciano MD, Dipak Unavailable [phone] Tapan Frost DO Unavailable Unavailable Kasey Delacruz Unavailable [phone] ALLERGIES Allergen (clinical drug ingredient) Drug/Non Drug Allergy documented on EMR Reaction Allergy Type Onset Date Status procaine (uncoded) palpitations Allergy Active meperidine meperidine palpitations Drug Allergy Ac tive magnesium citrate magnesium citrate stomach upset Drug Aller gy Active RESULTS Component Value Reference Range Notes Urine tox screen / MS if ind icated Reviewed date:06/01/2024 09:10:11 AM Interpretation:Consistent Performing Lab: Notes/Report: Consistent REASON FOR REFERRAL Reason Chronic back pain gr eater than 3 months duration Diagnosis 1 Dorsalgia, unspecifi ed (M54.9) Diagnosis 2 Other chronic pain ( G89.29) Referring Provider First Name Tapan Referring Provider Last Name Margot Referring Provider Speciality Orthopedic Surgery Referred Organization [facility] Referred Provider Dipak Luciano Referred Address [address], [id number], Referred Provider Specialty Pain Managem ent General Notes Lacey Brower 03:11:29 PM >Sent for insurance verification. Need SSN also., Deisi Quinn 03/24/2024 04:39:07 PM > [employer] MED[employer]ARE. NO COPAY. Referral Priority Routine MEDICATIONS Medication SIG (Take, Route, Frequency, Duration) Notes Start Date End Date Status Vitamin D3 50 mcg 1 tab(s) orally once a day for 30 day(s) Active tiZANidine 6 mg 1 cap orally TID prn spasm Active albuterol 90 mcg/inh 2 puff(s) inhaled e very 6 hours Active tamsulosin 0.4 mg 2 cap(s) orally once a day Active sertraline 100 mg 1 tab(s) orally once a day for 30 day(s) Active timolol ophthalmic maleate 0.5% 1 gtt in each affected eye once a day for 30 day(s) Active docusate sodium 100 mg 1 cap(s) orally 2 times a day, as needed Active diphenhydrAMINE 25 mg 1 cap(s) orally ev slime 6 hours, as needed Active gabapentin 300 mg 1 cap orally TID Active finasteride 5 mg 1 tab(s) orally once a day for 30 day(s) Active SOCIAL HISTORY Tobacco Use: Social History Observation Description Date Details (start date - stop date) Former Smoker NA - NA Sex Assigned At : Social History Observation Description Sex Assigned At Unknown alcohol Question Answer Notes Did you have a drink containing alcohol in the p ast year? No Points 0 Interpretation Negative Tobacco use: Question Answer Notes : former smoker When did you stop smoking? 2000 PROBLEMS Problem Type ICD Code Onset Dates Problem Status W/U Status Risk SNOMED Code Notes Problem Sacroiliitis, not elsewhere classified (M46.1) Active confirmed Solitary sacroiliitis (258085911) Problem Hypersomnia, unspecified (G47.10) Active confirmed Hypersomnia (11744444) Problem Other chronic pain (G89.29) Active confirmed Chronic pain (08642771) Problem Dorsalgia, unspecified (M54.9) Active confirmed Backache (388449771) Problem Other terminal clerk (current) drug therapy (Z79.899) Active confirmed Long-term current use of drug therapy (708659342) Problem Spinal stenosis, lumbar region with neurogenic claudication (M48.062) Active confirmed Neurogenic claudication (051852827) Problem Vertebrogenic low back pain (M54.51) Active confirmed Low back pain (finding) (835640488) VITAL SIGNS Temperature 97.8 degrees Fahrenheit 07/01/2024 Adalgisa ent reported weight due to fall risk Oximetry 98 % 07/01/2024 Patient reporte d weight due to fall risk Blood pressure diastolic 78 mm Hg 07/01/2024 Pat ient reported weight due to fall risk Height 70 in 07/01/2024 Patient reporte d weight due to fall risk Blood pressure systolic 127 mm Hg 07/01/2024 Adalgisa ent reported weight due to fall risk Weight 174 lbs 07/01/2024 Patient reporte d weight due to fall risk BMI 24.96 kg/m2 07/01/2024 Patient reporte d weight due to fall risk Encounters Encounter Location Date Provider Diagnosis [facility] [place] [address] [place], [place] [id number] 06/01/2024 Kasey Dariusz Vertebrogenic low ba ck pain M54.51 ; Sacroiliitis, not elsewhere classified M46.1 ; Hypersomnia, unspecified G47.10 and Other terminal clerk (current) drug therapy Z79.899 [facility] [place] [address] [place], [place] [id number] 07/01/2024 Dipak Luciano Vertebrogenic low ba ck pain M54.51 ; Spinal stenosis, lumbar region with neurogenic claudication M48.062 and Other terminal clerk (current) drug therapy Z79.899 ASSESSMENTS Encounter Date Diagnosis Assessment Notes Treatment Notes Treatment Clinical Notes 06/01/2024 Sacroiliitis, not elsewhere classified (ICD-10 - M46.1) 06/01/2024 Vertebrogenic low back pain (ICD-10 - M54.51) Consider treatment options pending evaluation by Dr. Luciano. Plan to obtain EMG / NCS reports completed at [facility] in 02/2024. Printed information regarding SCS trial / placement given to patient. 07/01/2024 Spinal stenosis, lumbar region with neurogenic claudication (ICD-10 - M48.062) Printed information regarding SCS trial / placement given to patient at a prior visit. Discussed SCS therapy at great length with patient on 07/01/24: risks, potential benefits and alternatives reviewed with patient. Patient desires to proceed towards an SCS trial. Plan psychological evaluation as required by insurer. 07/01/2024 Vertebrogenic low back pain (ICD-10 - M54.51) Chronic axial lumbosacral spine pain and radicular lower extremity pain. 07/01/2024 Other terminal clerk (current) drug therapy (ICD-10 - Z79.899) Patient was given a copy of the Treatment Agreement he signed on 05/18/24. 2022 opioid (OUD) risk tool score = 1. This places the patient in the low risk category. 06/01/2024 Hypersomnia, unspecified (ICD-10 - G47.10) Plan to obtain [facility] Sleep Study report from 03/2024. 06/01/2024 Other long-term (current) drug therapy (ICD-10 - Z79.899) Patient was given a copy of the Treatment Agreement he signed on 05/18/24. 2022 opioid (OUD) risk tool score = 1. This places the patient in the low risk category. Plan urine toxicology screen today in anticipation of possibly starting opioid therapy at future visit as well as to assess for any prescribed, unprescribed, and / or illicit controlled substance(s). 06/01/2024 Other Continue above medications as currently prescribed by PCP. Case reviewed, treatment plan approved, and visit note edited by Dr. Luciano. 07/01/2024 Other PLAN OF TREATMENT No Information Insurance Providers Payer Name Payer Address Payer Phone Subscriber Number Group Number Insured Name Patient Relationship to Insured Coverage Start Date Coverage End Date [facility] [address] [address] [place] [address] [phone] [id number] Minh Deniz Self - patient is the insured MEDICAL (GENERAL) HISTORY Medical History History ICD Code Chronic pain Low back pain Lumbar spondylosis, disc dis ease and spinal stenosis noted upon review of imaging study report Thoracic spondylosis noted upon review o f imaging study report Cervical spondylosis, disc d isease and multilevel spinal stenosis noted upon review of imaging study report Truncal muscle spasm / ataxia History of paralysis of right lower extr emity Erythrocytosis COVID-19 Bronchitis with bronchospam Major depression Benign prostatic hyperplasia Kidney cancer (2015) Falls Sleep disorder / excessive daytime sleep iness Surgical History Surgery Date(Month/Year) Knee surgery, right, performed in [place], [place], 1973 Exploratory laparotomy, performed in [place], [place], 1981 Vasectomy, performed in [place], [place] , 1982 Appendectomy, peformed in [place], [place], 1985 Cholecystectomy, performed in [place], [place], 1992 Repair of scalp (fall), performed in [place], [place], 2000 Nephrectomy, partial, right (kidney cancer), performed at [facility] in [place], [place], 2014 Cataract removal, performed in [place], [place], 2022 Hospitalization History Reason Date(Month/Year) Heart problems, 2001
--- OUTSIDE RECORDS SUMMARY | 2024-07-01 12:55 | XMS_ITS ---
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 Role Phone Raimundo Mobley APRN Primary Care Provider Alexey Luciano MD, Dipak Unavailable [phone] Tapan Frost DO Unavailable Unavailable Kasey Delacruz Unavailable [phone] ALLERGIES Allergen (clinical drug ingredient) Drug/Non Drug [...] Interpretation:Consistent Performing Lab: Notes/Report: Consistent REASON FOR VISIT Low back pain MEDICATIONS Medication SIG (Take, Route, Frequency, Duration) Notes Start Date End Date Status docusate sodium 100 mg 1 cap(s) orally 2 times a day, as needed Active albuterol 90 mcg/inh 2 puff(s) inhaled e very 6 hours Active timolol ophthalmic maleate 0.5% 1 gtt in each affected eye once a day for 30 day(s) Active diphenhydrAMINE 25 mg 1 cap(s) orally ev slime 6 hours, as needed Active Vitamin D3 50 mcg 1 tab(s) orally once a day for 30 day(s) Active gabapentin 300 mg 1 cap orally TID Active sertraline 100 mg 1 tab(s) orally once a day for 30 day(s) Active tamsulosin 0.4 mg 2 cap(s) orally once a day Active finasteride 5 mg 1 tab(s) orally once a day for 30 day(s) Active tiZANidine 6 mg 1 cap orally TID prn spasm Active SOCIAL HISTORY Tobacco Use: Social History [...] W/U Status Risk SNOMED Code Notes Problem Vertebrogenic low back pain (M54.51) Active confirmed Low back pain (finding) (763369261) Problem Hypersomnia, unspecified (G47.10) Active confirmed Hypersomnia (03047936) Problem Other shelter (current) drug therapy (Z79.899) Active confirmed Long-term current use of drug therapy (226220951) Problem Sacroiliitis, not elsewhere classified (M46.1) Active confirmed Solitary sacroiliitis (979415032) VITAL SIGNS Height 70 in 06/01/2024 Weight 174 lbs 06/01/2024 BMI 24.96 kg/m2 06/01/2024 Blood pressure systolic 134 mm Hg 06/01/20 24 Blood pressure diastolic 87 mm Hg 024 Temperature 97.9 degrees Fahrenheit 06/01/20 24 Oximetry 96 % 06/01/2024 Encounters Encounter Location Date Provider Diagnosis [facility] [id number] [place], [place] [id number] 06/01/2024 Kasey Arzola Vertebrogenic low ba ck pain M54.51 ; Sacroiliitis, not elsewhere classified M46.1 ; Hypersomnia, unspecified G47.10 and Other exterminator termite (current) drug therapy Z79.899 ASSESSMENTS Encounter Date Diagnosis Assessment Notes Treatment Notes Treatment Clinical Notes 06/01/2024 Vertebrogenic low back pain (ICD-10 - M54.51) Consider treatment options pending evaluation by Dr. Luciano. Plan to obtain EMG / NCS reports completed at [facility] in 02/2024. Printed information regarding SCS trial / placement given to patient. 06/01/2024 Sacroiliitis, not elsewhere classified (ICD-10 - M46.1) 06/01/2024 Hypersomnia, unspecified (ICD-10 - G47.10) Plan to obtain [facility] Sleep Study report from 03/2024. 06/01/2024 Other shelter (current) drug therapy (ICD-10 - Z79.899) Patient [...] and visit note edited by Dr. Luciano. PLAN OF TREATMENT Medication Medication Name Sig Start Date Stop Date Notes gabapentin 300 mg 1 cap orally TID tiZANidine 6 mg 1 cap orally TID prn spasm Treatment Notes Assessment Notes Vertebrogenic low back pain Consider treatment options pending evaluation by Dr. Luciano. Plan to obtain EMG / NCS reports completed at [facility] in 02/2024. Printed information regarding SCS trial / placement given to patient. Hypersomnia, unspecified Plan to obtain [facility] Sleep Study report from 03/2024. Other exterminator termite (current) drug therapy Patient was given a copy of the Treatment Agreement he signed on 05/18/242022 opioid (OUD) risk tool score = 1. This places the patient in the low risk category. Plan urine toxicology screen today in anticipation of possibly starting opioid therapy at future visit as well as to assess for any prescribed, unprescribed, and / or illicit controlled substance(s). Other Continue above medications as currently prescribed by PCP. Case reviewed, treatment plan approved, and visit note edited by Dr. Luciano. Next Appt Details Follow Up: OV to discuss adalberto gnostic studies and treatment options pending resolution of current ID issues., Reason: History and Physical Notes * HPI (History of Present Illness) Category Sub-Category Detail Notes Lumbar Spine injury: multiple falls - debilitating fall 09/2005, smaller falls since that time not requiring medical attention pain in the bilateral low back. This pain is described as constant with a burning tightness. This pain is moderate to severe in intensity. This pain extends into the hips, groin, and thighs (R>L). The back pain is not aggravated by anything in particular. This pain is somewhat alleviated by lying down flat on his back previous surgery: tingling numbness in the BLE (R>L) weakness in the BLE Previous Therapy Previous therapy: physical therapist apy with history of no benefit (2020); home exercises / stretching therapy with history of no benefit (2020); ice therapy with history of transient benefit (2022); injection therapy performed at a pain center in [place], [place] - injections and LRFA procedure with history of no benefit (2020) Medication history: Neurontin 300 mg; Za naflex 6 mg Potential Work or Litigation Related Injury No: patient stated pain is not d ue to a work or litigation related injury Previous Imaging/Studies MRI of the C-spine and T-spine on 04/23/24; of the L-spine on 02/21/24; see scanned documents, reviewed X-rays of the L-spine on ; see scanned documents, reviewed Physician's referral Physician's referral receiv ed: from Dr. Tapan Frost for chronic back pain greater than 3 months duration; see scanned documents, reviewed Physician/Clinic notes Notes received from: [facility] [place] [place] [facility] [place], reviewed Physical Examination Category Sub-Category Detail Notes ENT Oral cavity: normal, mucous m embranes moist Tongue: normal Hearing: grossly intact Neck Neck: soft, supple Crepitus: none Extremities Edema: no Cyanosis: no Clubbing: no Tremors: no Chest Shape and expansion: normal expa nsion, equal bilaterally, respirations even and unlabored Breath sounds: clear to auscultatio n bilaterally Heart Rhythm: regular Murmurs: no Heart sounds: S1-S2 Abdomen Shape: rounded, nondist ended, and symmetrical Tenderness: no Exam shows: active bowel sounds Neurological Cranial nerves: grossly intact Sensory: intact but significa ntly diminished BLE Reflexes: DTR's 0+ BLE Psychiatric: alert and oriented x 3, expresses full and free-flowing thoughts, perceptions realistic and consistent with examiner's, expresses sound and rational answers to questions SLR: negative on the left ; deferred on the right Musculoskeletal Spinal tenderness: entire lumbar spinal tenderness noted Paraspinous tenderness: right > left lum bar paraspinous tenderness noted SI joints: right > left SI join t tenderness noted Gait: presents in belted w heelchair Motor: strength 4/5 LLE; 0- 2/5 RLE Outcome Assessment: Findings:: Positive ?Care plan documented:: Yes - care provi de in home by spouse Dermatology Skin inspection: pink, warm, dry , and intact Palpation: no nodules or indura tion palpated General General appearence: well groomed , well nourished Build: overweight Head: normocephalic Eyes Pupils: round Conjunctiva: without injection
--- OUTSIDE RECORDS SUMMARY | 2024-07-01 12:55 | XMS_ITS ---
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 Name Role Phone Raimundo Mobley APRN Primary Care Provider Alexey Luciano MD, Dipak Unavailable [phone] Tapan Frost DO Unavailable Unavailable ALLERGIES Allergen (clinical drug ingredient) Drug/Non Drug Allergy documented on EMR Reaction Allergy Type Onset Date Status procaine (uncoded) palpitations Allergy Active meperidine meperidine palpitations Drug Allergy Ac tive magnesium citrate magnesium citrate stomach upset Drug Aller gy Active REASON FOR VISIT Patient states he is here today for backache {low back pain} MEDICATIONS Medication SIG (Take, Route, Frequency, Duration) Notes Start Date End Date Status Vitamin D3 50 mcg 1 tab(s) orally once a day for 30 day(s) Active tiZANidine 6 mg 1 cap orally TID prn spasm Active tamsulosin 0.4 mg 2 cap(s) orally once a day Active sertraline 100 mg 1 tab(s) orally once a day for 30 day(s) Active timolol ophthalmic maleate 0.5% 1 gtt in each affected eye once a day for 30 day(s) Active albuterol 90 mcg/inh 2 puff(s) inhaled e very 6 hours Active docusate sodium 100 mg 1 cap(s) [...] former smoker When did you stop smoking? 2001 PROBLEMS Problem Type ICD Code Onset Dates Problem Status W/U Status Risk SNOMED Code Notes Problem Spinal stenosis, lumbar region with neurogenic claudication (M48.062) Active confirmed Neurogenic claudication (214897921) VITAL SIGNS Height 70 in 07/01/2024 Weight 174 lbs 07/01/2024 BMI 24.96 kg/m2 07/01/2024 Blood pressure systolic 127 mm Hg 07/01/20 Blood pressure diastolic 78 mm Hg 024 Temperature 97.8 degrees Fahrenheit 07/01/20 Oximetry 98 % 07/01/2024 Patient reported weight due to fall risk Encounters Encounter Location Date Provider Diagnosis [facility], [address] [id number] 07/01/2024 Dipak Luciano Vertebrogenic low ba ck pain M54.51 ; Spinal stenosis, lumbar region with neurogenic claudication M48.062 and Other buttermaker (current) drug therapy Z79.899 ASSESSMENTS Encounter Date Diagnosis Assessment Notes Treatment Notes Treatment Clinical Notes 07/01/2024 Vertebrogenic low back pain (ICD-10 - M54.51) Chronic axial lumbosacral spine pain and radicular lower extremity pain. 07/01/2024 Spinal stenosis, lumbar region with neurogenic claudication (ICD-10 - M48.062) Printed information regarding SCS trial / placement given to patient at a prior visit. Discussed SCS therapy at great length with patient on 07/01/24: risks, potential benefits and alternatives reviewed with patient. Patient desires to proceed towards an SCS trial. Plan psychological evaluation as required by insurer. 07/01/2024 Other buttermaker (current) drug therapy (ICD-10 - Z79.899) Patient was given a copy of the Treatment Agreement he signed on 05/18/24. 2022 opioid (OUD) risk tool score = 1. This places the patient in the low risk category. 07/01/2024 Other PLAN OF TREATMENT Treatment Notes Assessment Notes Vertebrogenic low back pain Chronic axia l lumbosacral spine pain and radicular lower extremity pain. Spinal stenosis, lumbar verito on with neurogenic claudication Printed information regarding SCS trial / placement given to patient at a prior visit. Discussed SCS therapy at great length with patient on 07/01/24: risks, potential benefits and alternatives reviewed with patient. Patient desires to proceed towards an SCS trial. Plan psychological evaluation as required by insurer. Other buttermaker (current) drug therapy Patient was given a copy of the Treatment Agreement he signed on 05/18/24. 2022 opioid (OUD) risk tool score = 1. This places the patient in the low risk category. History and Physical Notes * HPI (History of Present Illness) Category Sub-Category Detail Notes Lumbar Spine injury: multiple falls - debilitating fall 09/2005, smaller falls since that time not requiring medical attention pain in the bilateral low back. This pain is described as constant aching with an intermittent burning sensation. This pain is associated with significant muscular tightness or spasm pain. This pain is often moderate to severe in intensity. This pain extends into the hips, groin, and thighs (R>L). The back pain is not aggravated by anything in particular. This pain is somewhat alleviated by sitting of lying down. 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); home exercises / stretching therapy with history of no benefit (2020); ice therapy with history of transient benefit (2022); injection therapy performed at a pain center in [place], [place] - injections and LRFA procedure with history of no benefit (2020) Medication history: Neurontin 300 mg; Za naflex 6 mg Previous Imaging/Studies MRI of the C-spine and T-spine on 04/23/24; of the L- spine on 02/21/24 Sleep study on 03/19/24; results previously not available, reviewed X-rays of the L-spine on EMG / NCV of the upper and low er extremities on 03/18/24; results previously not available, reviewed Physical Examination Category Sub-Category Detail Notes ENT Hearing: grossly intact Neck Neck: Chest Shape and expansion: normal expa nsion, equal bilaterally, respirations even and unlabored Neurological Psychiatric: alert and conver juan francisco Musculoskeletal Gait: presents in whee lchair Outcome Assessment: Findings:: Positive ?Care plan documented:: Yes - provi aylin in home care Dermatology Skin inspection: pink, warm, dry , and intact General General appearence: well groomed , well nourished Build: average Head: normocephalic Eyes Conjunctiva: without injectio n
[2024-07-01 14:08] LABS: Basophils # 0.1 10^3/uL (0.0-0.1); Basophils % 0.6 %; Eosinophils # 0.1 10^3/uL (0.0-0.8); Eosinophils % 1.5 %; Hematocrit 47.3 % (37-53); Lymphocytes # 2.5 10^3/uL (0.8-4.8); Lymphocytes % 30.9 %; Mean Corpuscular HGB Conc 32.8 g/dL (30-55); Mean Corpuscular Hemoglobin 27.9 pg (27-33); Mean Corpuscular Volume 85.2 fl (82-101); Mean Platelet Volume 8.9 fL (7.4-10.4); Monocytes % 12.2 %; Neutrophils # 4.33 10^3/uL (1.8-7.7); Neutrophils % 54.5 %; Nucleated Red Blood Cells % 0 %; Platelet Count 218 10^3/cmm (157-399); Red Blood Count 5.55 10^6/uL (3.85-5.65); Red Cell Distribution Width 12.6 % (12.1-15.1); White Blood Count 7.94 10^3/uL (3.29-11.43)
== END 2024-07-25 23:59 | disposition home or self-care (01) ==
LOC: ONCMED 12:53
PROVIDERS: Nurse Practitioner Family; PCP Clinical Nurse Specialist Adult Health; Visit Provider Internal Medicine Medical Oncology
DX: D75.1 Secondary polycythemia (principal)
CPT/HCPCS: 36415; 85025

== ENCOUNTER 2024-07-29 11:31 | Oncology outpatient (recurring) (ONCR) | payer MEDICARE, SELFPAY ==
[2024-07-29 11:49] LABS: Basophils % 0.6 %; Eosinophils # 0.1 10^3/uL (0.0-0.8); Eosinophils % 1.4 %; Hematocrit 51.4 % (37-53); Lymphocytes # 1.9 10^3/uL (0.8-4.8); Lymphocytes % 26.8 %; Mean Corpuscular HGB Conc 32.7 g/dL (30-55); Mean Corpuscular Hemoglobin 27.2 pg (27-33); Mean Corpuscular Volume 83.2 fl (82-101); Mean Platelet Volume 9.3 fL (7.4-10.4); Monocytes # 0.6 10^3/uL (0.2-0.9); Monocytes % 7.8 %; Neutrophils # 4.47 10^3/uL (1.8-7.7); Neutrophils % 63.1 %; Nucleated Red Blood Cells % 0 %; Platelet Count 210 10^3/cmm (157-399); Red Blood Count 6.18 10^6/uL (3.85-5.65); Red Cell Distribution Width 13.1 % (12.1-15.1); White Blood Count 7.08 10^3/uL (3.29-11.43)
[2024-07-29 12:30] LABS: Alanine Aminotransferase 13 U/L (0-41); Albumin Level 4.5 g/dL (3.5-5.2); Alkaline Phosphatase 68 U/L (40-130); Aspartate Amino Transferase 18 U/L (0-40); Blood Urea Nitrogen 15 mg/dL (8-23); Calcium 9.2 mg/dL (8.5-10.5); Carbon Dioxide 26 mmol/L (22-29); Chloride 100 mmol/L (98-107); Globulin 2.8 g/dL (1.3-4.6); Glomerular Filtration Rate 112.5 mL/min (90-130); Glucose 158 mg/dL (65-115); Osmolality Calculated 288 mOsm/kg (285-295); Sodium 137 mmol/L (136-145); Total Bilirubin 0.4 mg/dL (0.15-1.2); Total Protein 7.3 g/dL (6.6-8.7); Vitamin B12 1409 pg/mL (232-1245)
[2024-08-02 03:54] LABS: Methylmalonic Acid 87 nmol/L (69-390)
== END 2024-08-24 23:59 | disposition home or self-care (01) ==
PROVIDERS: Internal Medicine; Nurse Practitioner Family; PCP Clinical Nurse Specialist Adult Health; Visit Provider Internal Medicine Medical Oncology
DX: D75.1 Secondary polycythemia (principal); E53.8 Deficiency of other specified B group vitamins
CPT/HCPCS: 36415; 80053; 82607; 83921; 85025; 99214

== ENCOUNTER → 2024-09-08 14:16 | Outpatient (BNVA) | payer MEDICARE, SELFPAY | PROVIDERS: PCP Clinical Nurse Specialist Adult Health; Visit Provider Orthopaedic Surgery | DX: Z01.818 Encounter for other preprocedural examination (principal); M54.9 Dorsalgia, unspecified; G89.29 Other chronic pain | CPT/HCPCS: 36415; 80053; 81001; 85025; 99214 ==

== ENCOUNTER → 2024-09-11 09:50 | Outpatient (BNVA) | payer MEDICARE, SELFPAY | PROVIDERS: PCP Clinical Nurse Specialist Adult Health; Visit Provider Family Medicine | DX: Z01.818 Encounter for other preprocedural examination (principal); I45.10 Unspecified right bundle-branch block; Q24.8 Other specified congenital malformations of heart; I49.8 Other specified cardiac arrhythmias | CPT/HCPCS: 93005 ==

== ENCOUNTER 2024-09-16 05:43 | Day surgery (SDC) | payer MEDICARE, SELFPAY ==
--- OUTSIDE RECORDS SUMMARY | 2024-09-09 08:31 | XMS_ITS | Patient Health Record ---
Author Name Unknown Organization [facility] [employer] Address [address] [place], [place] [address] Care Team Providers Care Bath Solution Maker Name Role Phone Raimundo Mobley APRN Primary Care Provider Alexey Luciano MD, Dipak Unavailable [phone] Tapan Frost DO Unavailable Unavailable Kasey Delacruz Unavailable [phone] ALLERGIES Allergen (clinical drug ingredient) Drug/Non Drug [...] Speciality Orthopedic Surgery Referred Organization [facility] Referred Provider Dipak Luciano Referred Address [address] [place], [id number], Referred Provider Specialty Pain Managem ent General Notes Lacey Brower 03:11:29 PM >Sent for insurance verification. Need SSN also., Deisi Quinn 03/24/2024 04:39:07 PM > [employer] MEDICARE. NO COPAY. Referral Priority Routine Reason Pre-spinal cord stim ulator trial psychological evaluation Diagnosis 1 Spinal stenosis, lum bar region with neurogenic claudication (M48.062) Referral Organization [facility] Referring Provider First Name Dipak Referring Provider Last Name Ankita Referring Provider Speciality Pain Manag ement Referred Provider Roberto Wiley Referred Provider Specialty Psychologist General Notes Anca Gonzales 2023 10:56:47 AM > referral faxedChristian Brenda 08/03/2024 03:25:42 PM > Psych eval completed 07/31/24 Referral Priority Routine Referral Appointment Date 07/31/2024 Reason Evaluation for possi ble placement of SCS / IPG system Diagnosis 1 Spinal stenosis, lum bar region with neurogenic claudication (M48.062) Referral Organization [facility] Referring Provider First Name Dipak Referring Provider Last Name Ankita Referring Provider Speciality Pain Manag ement Referred Provider Tapan Frost Referred Provider Specialty Orthopedic S urgery General Notes Anca Gonzales 2023 12:21:20 PM > referral faxChristian price Brenda 09/07/2024 09:19:40 AM > received a fax with appt date and time Referral Priority Routine Referral Appointment Date 09/08/2024 MEDICATIONS Medication SIG (Take, Route, Frequency, Duration) Notes Start Date End Date Status diphenhydrAMINE 25 mg 1 cap(s) orally ev slime 6 hours, as needed Active albuterol 90 mcg/inh 2 puff(s) inhaled e very 6 hours Active Vitamin D3 50 mcg 1 tab(s) orally once a day for 30 day(s) Active sertraline 100 mg 1 tab(s) orally once a day for 30 day(s) Active gabapentin 300 mg 1 cap orally TID Active finasteride 5 mg 1 tab(s) orally once a day for 30 day(s) Active docusate sodium 100 mg 1 cap(s) orally 2 times a day, as needed Active tiZANidine 6 mg 1 cap orally [...] elsewhere classified (M46.1) Active confirmed Solitary sacroiliitis (745992365) Problem 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) Active confirmed Anxiety disorder (340273313) Problem Hypersomnia, unspecified (G47.10) Active confirmed Hypersomnia (63938667) Problem Other chronic pain (G89.29) Active confirmed Chronic pain (17546890) Problem Dorsalgia, unspecified (M54.9) Active confirmed Backache (185337189) Problem Other intermission coordinator (current) drug therapy (Z79.899) Active confirmed Long-term current use of drug therapy (713308015) Problem Spinal stenosis, lumbar region with neurogenic claudication (M48.062) Active confirmed Neurogenic claudication (198461967) Problem Vertebrogenic low back pain (M54.51) Active confirmed Low back pain (finding) (797364714) VITAL SIGNS Temperature 97.7 degrees Fahrenheit 08/27/2024 Adalgisa ent reported weight due to fall risk. Pain scores charted before removal of SCS lead Oximetry 98 % 08/27/2024 Patient reporte d weight due to fall risk. Pain scores charted before removal of SCS lead Blood pressure diastolic 68 mm Hg 08/27/2024 Pat ient reported weight due to fall risk. Pain scores charted before removal of SCS lead Height 70 in 08/27/2024 Patient reporte d weight due to fall risk. Pain scores charted before removal of SCS lead Blood pressure systolic 105 mm Hg 08/27/2024 Adalgisa ent reported weight due to fall risk. Pain scores charted before removal of SCS lead Weight 163 lbs 08/27/2024 Patient reporte d weight due to fall risk. Pain scores charted before removal of SCS lead BMI 23.39 kg/m2 08/27/2024 Patient reporte d weight due to fall risk. Pain scores charted before removal of SCS lead Encounters Encounter Location Date Provider Diagnosis [facility], [address] [id number] 06/01/2024 Kasey Arzola Vertebrogenic low ba ck pain M54.51 ; Sacroiliitis, not elsewhere classified M46.1 ; Hypersomnia, unspecified G47.10 and Other halfway (current) drug therapy Z79.899 [facility], [facility] [address] [place], [place] [id number] 07/01/2024 Dipak Luciano Vertebrogenic low ba ck pain M54.51 ; Spinal stenosis, lumbar region with neurogenic claudication M48.062 and Other halfway (current) drug therapy Z79.899 [facility], [facility] [address] [place], [place] [id number] 08/05/2024 Dipak Luciano Other specified anxiety disorders F41.8 ; Vertebrogenic low back pain M54.51 ; Spinal stenosis, lumbar region with neurogenic claudication M48.062 and Other intermission coordinator (current) drug therapy Z79.899 [facility] [address] [place] [address] 08/24/2024 Dipak Luciano Other specified anxiety disorders F41.8 ; Vertebrogenic low back pain M54.51 and Spinal stenosis, lumbar region with neurogenic claudication M48.062 [facility], [facility] [address] [place], [place] [id number] 08/27/2024 Dipak Luciano Vertebrogenic low ba ck pain M54.51 ; Other halfway (current) drug therapy Z79.899 and Spinal stenosis, lumbar region with neurogenic claudication M48.062 ASSESSMENTS Encounter Date Diagnosis Assessment Notes Treatment Notes Treatment Clinical Notes 06/01/2024 Sacroiliitis, not elsewhere classified (ICD-10 - M46.1) 06/01/2024 Vertebrogenic low back pain (ICD-10 - M54.51) Consider treatment options pending evaluation by Dr. Luciano. Plan to obtain EMG / NCS reports completed at [facility] in 02/2024. Printed information regarding SCS trial [...] (ICD-10 - F41.8) Plan monitored anesthesia care. 08/27/2024 Vertebrogenic low back pain (ICD-10 - M54.51) Chronic axial lumbosacral spine pain and radicular lower extremity pain. 08/24/2024 Vertebrogenic low back pain (ICD-10 - M54.51) Chronic axial lumbosacral spine pain and radicular lower extremity pain. 08/27/2024 Other intermission coordinator (current) drug therapy (ICD-10 - Z79.899) Patient was given a copy of the Treatment Agreement he signed on 05/18/24. 2022 opioid (OUD) risk tool score = 1. This places the patient in the low risk category. Patient has not requested opioid therapy. 08/05/2024 Spinal stenosis, lumbar region with neurogenic [...] and radicular lower extremity pain. 07/01/2024 Other halfway (current) drug therapy (ICD-10 - Z79.899) Patient was given a copy of the Treatment Agreement he signed on 05/18/24. 2022 opioid (OUD) risk tool score = 1. This places the patient in the low risk category. Patient has not requested opioid therapy. 06/01/2024 Hypersomnia, unspecified (ICD-10 - G47.10) Plan to obtain [facility] Sleep Study report from 03/2024. 06/01/2024 Other halfway (current) drug therapy (ICD-10 - Z79.899) Patient [...] / or illicit controlled substance(s). 08/05/2024 Other halfway (current) drug therapy (ICD-10 - Z79.899) Patient [...] implantation if SCS trial results in efficacy. 08/27/2024 Spinal stenosis, lumbar region with neurogenic claudication (ICD-10 - M48.062) Printed information regarding SCS trial / placement given to patient at a prior visit. Discussed SCS therapy at great length with patient on 07/01/24: risks, potential benefits and alternatives reviewed with patient at that visit and again discussed at 08/05/24 visit. Patient had expressed desire to proceed towards an SCS trial. Psychological evaluation, as required by insurer, was then completed: no contraindications to SCS therapy noted. SCS trial with efficacy that was greatly appreciated by patient. Plan referral Dr. Frost for evaluation for possible SCS, with IPG, placement. Patient counseled on the signs and symptoms of a possible SCS trial related infection and patient stated understanding to urgently seek treatment if an infection were to be suspected. Post procedural site care discussed with patient / patient's . 08/24/2024 Other Start cefazolin (per weight based guidelines), IV x 1 prior to procedure. 08/27/2024 Other 06/01/2024 Other Continue above medications as currently prescribed by PCP. Case reviewed, treatment plan approved, and visit note edited by Dr. Luciano. 07/01/2024 Other PLAN OF TREATMENT No Information Insurance Providers Payer Name Payer Address Payer Phone Subscriber Number Group Number Insured Name Patient Relationship to Insured Coverage Start Date Coverage End Date [facility] [place] [address] [address] [place] [address] [id number] Deniz Wilkinson Self - patient is the [...] Surgery Date(Month/Year) Knee surgery, right, performed in [place], [place], 1973 Exploratory laparotomy, performed in [place], [place], 1981 Vasectomy, performed in [place], [place] , 1982 Appendectomy, peformed in [place], [place], 1985 Cholecystectomy, performed in [place], [place], 1992 Repair of scalp (fall), performed in [place], [place], 2000 Nephrectomy, partial, right (kidney cancer), performed at [facility] in [place], [place], 2014 Cataract surgery, performed in [place], [place], 2022 Hospitalization History Reason Date(Month/Year) Heart problems, 2001 Fall, 2004
--- OUTSIDE RECORDS SUMMARY | 2024-09-09 08:31 | XMS_ITS ---
Author Name Unknown Organization [facility] Address [address] [place], [place] [id number] Care Team Providers Care Video Editor Name Role Phone Raimundo Mobley APRN Primary Care Provider Alexey Luciano MD, Dipak Unavailable [phone] Tapan Frost DO Unavailable Unavailable ALLERGIES Allergen [...] anxiety disorders (F41.8) Active confirmed Anxiety disorder (002495659) VITAL SIGNS Height 70 in 08/05/2024 Weight 163 lbs 08/05/2024 BMI 23.39 kg/m2 08/05/2024 Blood pressure systolic 126 mm Hg 08/05/20 Blood pressure diastolic 79 mm Hg 024 Temperature 98.1 degrees Fahrenheit 08/05/20 Oximetry 96 % 08/05/2024 Patient reported weight due to fall risk Encounters Encounter Location Date Provider Diagnosis [facility], [place] [id number] [place], [place] [id number] 08/05/2024 Dipak Luciano Other specified anxiety disorders F41.8 ; Vertebrogenic low back pain M54.51 ; Spinal stenosis, lumbar region with neurogenic claudication M48.062 and Other custodial (current) drug therapy Z79.899 ASSESSMENTS Encounter Date [...] SCS trial results in efficacy. 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 Other equipment operator intermodal yard (current) drug therapy Patient was given a copy of the Treatment Agreement he signed on 05/18/24. 2022 opioid (OUD) risk tool score = 1. This places the patient in the low risk category. Patient has not requested opioid therapy. 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); home exercises / stretching therapy with history of no benefit (2020); ice therapy with history of transient benefit (2022); injection therapy performed at a pain center in [place], [place] - injections and LRFA procedure with history of no benefit (2020) Medication history: Neurontin 300 mg; Za naflex 6 mg Previous Imaging/Studies MRI of the C-spine and T-spine on 04/23/24; of the L- spine on 02/21/24 Sleep study on 03/19/24 X-rays of the L-spine on EMG / NCV of the upper and low er extremities on 03/18/24 Physician/Clinic notes Notes received from: [facility] - [facility]; see scanned documents, reviewed Physical Examination Category Sub-Category Detail Notes ENT Hearing: grossly intact Chest Shape and expansion: normal expa nsion, equal bilaterally, respirations even and unlabored Neurological Psychiatric: alert and conver juan francisco Musculoskeletal Gait: presents in whee lchair Outcome Assessment: Findings:: Positive ?Care plan documented:: Yes - natalia viera in home care Dermatology Skin inspection: pink, warm, dry , and intact General General appearence: well groomed , well nourished Build: average Head: normocephalic Eyes Conjunctiva: without injectio n
--- OUTSIDE RECORDS SUMMARY | 2024-09-09 08:31 | XMS_ITS ---
Author Name Unknown Organization [facility] Address [address] [place], [place] [id number] Care Team Providers Care Ip Attorney Name Role Phone Raimundo Mobley APRN Primary Care Provider Alexey Luciano MD, Dipak Unavailable [phone] Tapan Frost DO Unavailable Unavailable ALLERGIES Allergen [...] Active Encounters Encounter Location Date Provider Diagnosis [facility] [address] [place], [place] [address] 08/24/2024 Dipak Luciano Other specified anxiety disorders [...] Appt Details Follow Up: 3 days., Reason: Procedure Notes * Category Sub-Category Detail Notes Spinal column stimulator trial Facility: [facility] Risks and benefits of the procedure: [...] SaO2 monitors were applied, IV sedation by WOOD HEEL FINISHER as needed Start time: 1427 End [...] epidural tray which included a 5 ml jpft-iu-aaeuhuhnvn syringe; syringes plus 18 ga. and 25 ga. needles; 22 ga. spinal needle; ChloraPrep; sterile gauze; one 14 ga. [employer] epidural needle and associated 16 contact [...] skin through the ligamentum flavum utilizing the iqdz-zt-zckyjjglft-technique. 0.9% sodium chloride was used as the injectate; ouzz-zv-efgleqfrqq was noted to be brisk with the needle insertion. Confirmation of passage of the lead into, and superiorly within, the epidural space was verified: the lead was advanced to it's final epidural placement under live A/P fluoroscopy with lateral views utilized to confirm lead positioning in the posterior aspect of the epidural space. Subsequent lead stimulation, as performed by the [employer] consumer sales representative under the direction of Dr. [...] given to the patient by the [employer] consumer sales representative. The patient was instructed to go to the ER if experiencing perceived neurological complications. The patient was provided with contact information for the [employer] consumer sales representative as needed for trial Electrode [...]
[2024-09-16] VITALS (10 sets, daily range): BP systolic 119–139; BP diastolic 68–87; PULSE 74–111; RESP 17–18; TEMP 36.6–36.7; O2SAT 95–99; BMI 24.3
--- OUTSIDE RECORDS SUMMARY | 2024-09-16 05:46 | XMS_ITS ---
Author Name Unknown Organization [facility] Address [address] [place], [place] [id number] Care Team Providers Care Fixture Builder Name Role Phone Raimundo Mobley APRN Primary Care Provider Alexey Luciano MD, Dipak Unavailable [phone] Tapan Frost DO Unavailable Unavailable Allergies Allergen (clinical drug ingredient) Drug/Non Drug Allergy documented on EMR Reaction Allergy Type Onset Date Status procaine (uncoded) palpitations Allergy Active meperidine meperidine palpitations Drug Allergy Ac tive magnesium citrate magnesium citrate stomach upset Drug Aller gy Active REASON FOR VISIT Patient states he is here today to talk about stimulator {low back pain} Medications Medication SIG (Take, Route, Frequency, Duration) Notes [...] once a day for 30 day(s) Active Social History Tobacco Use: Social History Observation Description Date Details (start date - stop date) Former Smoker NA - NA alcohol Question Answer Notes Did you have a drink containing alcohol in the p ast year? No Points 0 Interpretation Negative Tobacco use: Question Answer Notes : former smoker When did you stop smoking? 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) Active confirmed Vital Signs Temperature 98.1 degrees Fahrenheit 08/05/20 24 Blood pressure systolic 126 mm Hg 08/05/20 24 Blood pressure diastolic 79 mm Hg 024 Height 70 in 08/05/2024 Weight 163 lbs 08/05/2024 Oximetry 96 % 08/05/2024 BMI 23.39 kg/m2 08/05/2024 Patient reported weight due to fall risk Encounters Encounter Location Date Provider Diagnosis [facility], [address] [id number] 08/05/2024 Dipak Luciano Other specified anxiety disorders F41.8 ; Vertebrogenic low back pain M54.51 ; Spinal stenosis, lumbar region with neurogenic claudication M48.062 and Other retirement (current) drug therapy Z79.899 Assessments Encounter Date Diagnosis (ICD Code) Assessment Notes Treatment Notes Treatment Clinical Notes [...] SCS trial results in efficacy. 08/05/2024 Other intermediate designer (current) drug therapy (ICD-10 - Z79.899) Patient was given a copy of the Treatment Agreement he signed on 05/18/24. 2022 opioid (OUD) risk tool score = 1. This places the patient in the low risk category. Patient has not requested opioid therapy. Plan Of Treatment Treatment Notes Assessment Notes Other specified anxiety [...] if SCS trial results in efficacy. Other retirement (current) drug therapy Patient was given a copy of the Treatment Agreement he signed on 05/18/24. 2022 opioid (OUD) risk tool score = 1. This places the patient in the low risk category. Patient has not requested opioid therapy. Next Appt Details Follow Up: SCS Trial., [place] n: Progress Notes * Deniz WILKINSON DDOB:[birth year] (69 yo M)Acc No.[id number]:08/05/2024 Patient:?Deniz Wilkinson Provider:?Dipak Luciano :1955???Age:69 Y???Sex:Male Robin e:08/05/2024 Address:[address] [place] [address] Pcp:Raimundo Mobley APRN Subjective: * Chief Complaints: * ???Patient states he is here today to talk about stimulator {low back pain} * HPI: ???Lumbar Spine:?69 year old male presents with c/o pain?for?intermediate designer duration?in the bilateral low back. This pain is described as constant aching with an intermittent burning sensation. This pain is associated with significant muscular tightness?/ spasm pain. This pain is often moderate to severe in intensity. This pain extends into the hips, groin, and thighs (R>L). The back pain is not aggravated by anything in particular. This pain is somewhat alleviated by sitting of lying down. Patient spends most of his time sitting in his wheelchair because of the pain.?c/o radiation of pain?intermittently into the bilateral thighs.?c/o numbness?in the BLE (R>L).?c/o weakness?in the BLE.?Denies : tingling.?Denies : previous surgery:.?injury:?multiple falls - debilitating fall 09/2005, smaller falls since that time not requiring medical attention.?Physician/Clinic notes:?Notes received from:?[facility] - [facility]; see scanned documents, reviewed.?Previous Imaging/Studies:?Sleep study?on 03/19/24.?X-rays?of the L-spine on 03/17/24.?MRI?of the C-spine and T-spine on 04/23/24; of the L-spine on 02/21/24.?EMG / NCV?of the upper and lower extremities on 03/18/24.?Previous Therapy:?Previous therapy:?physical therapy with history of no benefit (2020); home exercises / stretching therapy with history of no benefit (2020); ice therapy with history of transient benefit (2022); injection therapy performed at a pain center in [place], [place] - injections and LRFA procedure with history of no benefit (2020).?Medication history:?Neurontin 300 mg; Zanaflex?6 mg.? * ROS:?14 point review of systems negative. * Medical History:? * Surgical History:?Knee surge ry, right, performed in [place], [place], 1973Exploratory laparotomy, performed in [place], [place], 1981Vasectomy, performed in [place], [place], 1982Appendectomy, peformed in [place], [place], 1985Cholecystectomy, performed in [place], [place], 1992Repair of scalp (fall), performed in [place], [place], 2000Nephrectomy, partial, right (kidney cancer), performed at [facility] in [place], [place], 2014Cataract surgery, performed in [place], [place], 2022 * Hospitalization/Major Diagno stic Procedure:?Heart problems, 2002Fall, 2005 * Family History:?Father: dece ased 78 yrs, blood septic.?Mother: 65 yrs, cancer.? * Social History:?Tobacco use?:?former smoker ?When did you stop smoking??2000 ???Marijuana: rarely (last occurrence reportedly was in 2021). ???Meth: no. ???Other illicit drug use: no. ???Alcohol?Did you have a drink containing alcohol in the past year??No ?Points?0 ?Interpretation?Negative ???: yes. ???Children: 2. ???Education: some college. ???Occupation: no, reportedly disabled. ???Exercise: no. ???History of welding/metal work: no. ???Travel: [place] (1994) and [place] (1996). * Medications:?Takingalbuterol 90 mcg/inh aerosol 2 puff(s) inhaled every 6 hoursdiphenhydrAMINE 25 mg capsule 1 cap(s) orally every 6 hours, as neededdocusate sodium 100 mg capsule 1 cap(s) orally 2 times a day, as neededfinasteride 5 mg tablet 1 tab(s) orally once a daygabapentin 300 mg capsule 1 cap orally TIDsertraline 100 mg tablet 1 tab(s) orally once a daytamsulosin 0.4 mg capsule 2 cap(s) orally once a daytimolol ophthalmic maleate 0.5% solution 1 gtt in each affected eye once a daytiZANidine 6 mg capsule 1 cap orally TID prn spasmVitamin D3(cholecalciferol) 50 mcg tablet 1 tab(s) orally once a dayMedication List reviewed and reconciled with the patientTaking albuterol 90 mcg/inh aerosol 2 puff(s) inhaled every 6 hoursTaking diphenhydrAMINE 25 mg capsule 1 cap(s) orally every 6 hours, as neededTaking docusate sodium 100 mg capsule 1 cap(s) orally 2 times a day, as neededTaking finasteride 5 mg tablet 1 tab(s) orally once a dayTaking gabapentin 300 mg capsule 1 cap orally TIDTaking sertraline 100 mg tablet 1 tab(s) orally once a dayTaking tamsulosin 0.4 mg capsule 2 cap(s) orally once a dayTaking timolol ophthalmic maleate 0.5% solution 1 gtt in each affected eye once a dayTaking tiZANidine 6 mg capsule 1 cap orally TID prn spasmTaking Vitamin D3(cholecalciferol) 50 mcg tablet 1 tab(s) orally once a dayMedication List reviewed and reconciled with the patient * Allergies:?magnesium citrate : stomach upsetmeperidine: palpitationsprocaine: palpitationsno[Allergies Verified] Objective: * Vitals:?Pain Scale:8.5 (0-10 ), Pain average:9, Pain Range:8-10, Ht: 70 in, Wt:163 lbs, BMI:23.39 index, BP:126/79 mm Hg, HR:80, RR:16, Temp:98.1, SaO2:96 Patient reported weight due to fall risk. * Physical Examination:?General:?General appearence:?well groomed, well nourished.?Build:?average.?Head:?normocephalic.?Eyes:?Conjunctiva:?without injection.?ENT:?Hearing:?grossly intact.?Chest:?Shape and expansion:?normal expansion, equal bilaterally, respirations even and unlabored.?Neurological:?Psychiatric:?alert and conversant.?Musculoskeletal:?Gait:?presents in wheelchair.?Outcome Assessment:?Findings:?Positive ?Care plan documented:?Yes - provides in home care ???Dermatology:?Skin inspection:?pink, warm, dry, and intact.? Therapeutic Interventions: * Therapeutic Interventions: ???1.?Counseling ? Anatomy and pathophysiology : discussed with patient ? Risks and benefits of the procedure(s) discussed in regards to : spinal cord stimulator trial ? Time : total time spent caring for the patient today was 45 minutes. This includes time spent before the visit reviewing the chart, time spent during the visit, and time spent after the visit on documentation ? Treatment : prior imaging study results reviewed and treatment options discussed with patient ???2.?PDMP ? [facility] : 08/04/2024 10:55 AM - database accessed prior to today's visit in anticipation of possible opioid prescribing; unable to document review due to no matching patient found ?? Assessment: * Assessment: 1.?Spinal stenosis, lumbar r egion with neurogenic claudication - M48.062 (Primary)?2.?Other specified anxiety disorders - F41.8?3.?Vertebrogenic low back pain - M54.51?4.?Other intermediate designer (current) drug therapy - Z79.899? Plan: * Treatment: 2.?Other specified anxiety d isorders? Notes: Plan monitored anesthesia care.?? 3.?Vertebrogenic low back pa in? Notes: Chronic axial lumbosacral spine pain and radicular lower extremity pain.?? 4.?Other retirement (current) drug therapy? Notes: Patient was given a copy of the Treatment Agreement he signed on 05/18/242022 opioid (OUD) risk tool score = 1. This places the patient in the low risk category. Patient has not requested opioid therapy.?? * Procedure Codes:? * Preventive Medicine:? ??Counseling:?Pain Management:?Follow-up Plan documented:?Yes ?Pain Screening:?8.5 ??ASA Status Classification:?score:?P3; risks, benefits, and alternatives of moderate sedation discussed with the patient.? ??Screening / Special Tests:?Fall Risk?Screening:?Two or more falls without injury in the past year as of: 08/05/2024 (most recent 03/2024 x 2) ?Assessment:?Performed ?Plan of Care:?Documented : recommend use of safety devices when out of belted wheelchair * Follow Up:?SCS Trial. * Images: * Sign off status: Completed true * Provider:?Dipak Luciano Date:?08/05/20 Generated for Juan M mcclellan/Shanita/Josephinesmashu on:?09/16/2024 05:45 AM CDT History and Physical Notes * HPI (History [...] in the BLE Previous Therapy Previous therapy: prn physical therapist apy with history of no benefit (2020); home exercises / stretching therapy with history of no benefit (2020); ice therapy with history of transient benefit (2022); injection therapy performed at a pain center in [place], [place] - injections and LRFA procedure with [...] received from: [facility]; see scanned documents, reviewed Physical Examination [...]
--- OUTSIDE RECORDS SUMMARY | 2024-09-16 05:46 | XMS_ITS ---
Author Name Unknown Organization [facility] [employer] Address [address] [place], [place] [id number] Care Team Providers Care Yard Stocker Name Role Phone Raimundo Mobley APRN Primary Care Provider Alexey Luciano MD, Dipak Unavailable [phone] Tapan Frost DO Unavailable Unavailable Allergies Allergen (clinical drug ingredient) Drug/Non Drug Allergy documented on EMR Reaction Allergy Type Onset Date Status procaine (uncoded) palpitations Allergy Active meperidine meperidine palpitations Drug Allergy Ac tive magnesium citrate magnesium citrate stomach upset Drug Aller gy Active REASON FOR VISIT Low back pain Medications Medication SIG (Take, Route, Frequency, Duration) [...] Active Encounters Encounter Location Date Provider Diagnosis [facility] [address] [place], [place] [id number] 08/24/2024 iDpak Luciano Other specified anxiety disorders F41.8 ; Vertebrogenic low back pain M54.51 and Spinal stenosis, lumbar region with neurogenic claudication M48.062 Assessments Encounter Date Diagnosis (ICD Code) Assessment [...] guidelines), IV x 1 prior to procedure. Plan Of Treatment Treatment Notes Assessment Notes [...] Detail Notes Spinal column stimulator trial Facility: [facility] Risks and benefits of the procedure: [...] SaO2 monitors were applied, IV sedation by FOREST AIDE as needed Start time: 1427 End time: [...] epidural tray which included a 5 ml axbf-iz-biyfujhctj syringe; syringes plus 18 ga. and 25 ga. needles; 22 ga. spinal needle; ChloraPrep; sterile gauze; one 14 ga. [employer] epidural needle and associated 16 contact [...] skin through the ligamentum flavum utilizing the kwsz-wq-abhqqfxvkz-technique. 0.9% sodium chloride was used as the injectate; xohq-su-llravhepjd was noted to be brisk with the needle insertion. Confirmation of passage of the lead into, and superiorly within, the epidural space was verified: the lead was advanced to it's final epidural placement under live A/P fluoroscopy with lateral views utilized to confirm lead positioning in the posterior aspect of the epidural space. Subsequent lead stimulation, as performed by the [employer] food service sales representatives under the direction of Dr. Luciano, was [...] to the patient by the [employer] food service sales representatives. The patient was instructed to go to the ER if experiencing perceived neurological complications. The patient was provided with contact information for the [employer] food service sales representatives as needed for trial Electrode stimulation: lead position rosio ting / contact stimulation was performed after lead placement, during the procedure as well as post-procedure; the patient reported adequate paresthesia coverage in the typical locations of pain Progress Notes * Deniz WILKINSON DDOB:[birth year] (69 yo M)Acc No.[id number]:08/24/2024 Patient:?Rusty Wilkinsonwhitley Joshi Provider:?Dipak Luciano :1955???Age:69 Y???Sex:Male Robin e:08/24/2024 Address:[address] [place] [address] Pcp:Raimundo Leandra, WAD PRINTING MACHINE OPERATOR Subjective: * Chief Complaints: * ???Low back pain * HPI: ???Lumbar Spine:?69 year old male presents with c/o pain?for?continuous churn buttermaker duration?in the bilateral low back. This pain [...] falls since that time not requiring medical attention.?Previous Imaging/Studies:?Sleep study?on 03/19/24.?X-rays?of the L-spine on 03/17/24.?MRI?of the C-spine and T-spine on 04/23/24; of the L-spine on 02/21/24.?EMG / NCV?of the upper and lower extremities on 03/18/24.? HPI forwarded from prior office visit note. * Medical History:? * Surgical History:? * Hospitalization/Major Diagno stic Procedure:? * Medications:?Takingalbuterol 90 mcg/inh aerosol 2 puff(s) [...] mcg tablet 1 tab(s) orally once a dayTaking albuterol 90 mcg/inh aerosol 2 puff(s) inhaled [...] mcg tablet 1 tab(s) orally once a day * Allergies:?magnesium citrate : stomach upsetmeperidine: palpitationsprocaine: palpitations Objective: * Examination: ???General examination: ?Appearance/ Psychiatric:?no apparent distress; pleasant and interacting appropriately; calm.?Heart:?rhythm is regular.?Lungs:?clear to auscultation.? Assessment: * Assessment: 1.?Spinal stenosis, lumbar r egion with neurogenic claudication - M48.062 (Primary)?2.?Other specified anxiety disorders - F41.8?3.?Vertebrogenic low back pain - M54.51? Plan: * Treatment: 2.?Other specified anxiety d isorders? Notes: Plan monitored anesthesia care.?? 3.?Vertebrogenic low back pa in? Notes: Chronic axial lumbosacral spine pain and radicular lower extremity pain.?? 4.?Others? Notes: Start cefazolin (per weight based guidelines), IV x 1 prior to procedure.?? * Procedures:?Spinal column stimulator trial:?Facility:?[facility].?Risks and benefits of the procedure:?were previously discussed with the patient; see the signed consent form. The patient wished to proceed. A pre- procedure evaluation was conducted that included review of the patient's vital signs.?Electrode locations:?the contacts spanned the following level(s): midline 16 contact lead, from the inferior aspect of?T6 to the?mid aspect of T9. The central point of stimulation was noted to be at the mid T7 level.?Sedation:?after blood pressure, EKG and SaO2 monitors were applied, IV sedation by FOREST AIDE as needed.?Start time:?1427.?End time:?1449.?Position:?the patient was placed in the prone position. The patient was padded with a cushioned headrest and a thoracic and lumbar support device.?Prep:?ChloraPrep from the scapular regions to the superior aspect of the gluteal folds. A sterile drape was utilized to frame the prepped area so as to create a sterile field over the insertion site(s). This sterile drape covered the entire torso and the C-arm x-ray tube assembly (while in lateral projection view). An additional sterile cover was used to drape the C-arm image intensifier.?Supplies, equipment/ technique:?a sterile epidural tray which included a 5 ml myrs-wi-smopxafutv syringe; syringes plus 18 ga. and 25 ga. needles; 22 ga. spinal needle; ChloraPrep; sterile gauze; one 14 ga. [employer] epidural needle and associated 16 contact [...] fashion. Sterile technique was maintained throughout the procedure.?Procedure:?lumbar: with an orientation based upon 5 lumbar-appearing vertebrae, the interspace isolated and infiltrated with 1% lidocaine was T12-L1. A 14 ga. epidural needle was inserted at the T12-L1 level. The needle was advanced at an approximate 30-45 degree angle to the skin through the ligamentum flavum utilizing the xuii-oz-tinbcactxf-technique. 0.9% sodium chloride was used as the injectate; zdir-lr-rmmgsmztsj was noted to be brisk with the needle insertion. Confirmation of passage of the lead into, and superiorly within, the epidural space was verified: the lead was advanced to it's final epidural placement under live A/P fluoroscopy with lateral views utilized to confirm lead positioning in the posterior aspect of the epidural space. Subsequent lead stimulation, as performed by the [employer] food service sales representatives under the direction of Dr. Luciano, was with adequate paresthesia coverage of the patient's pain. The epidural needle was removed under live fluoroscopy to prevent lead migration. The lead was secured to the skin via benzoin and steri-strips. A sterile dressing was applied over the lead site.?Fluoroscopy:?a midline A/P image was obtained and the [...] archived on a disc at the surgery center.?Electrode stimulation:?lead position testing / contact stimulation was performed after lead placement, during the procedure as well as post-procedure; the patient reported adequate paresthesia coverage in the typical locations of pain.?Discharge:?the patient reported adequate coverage of pain with stimulation post-procedure. Post procedure instructions were given patient by Dr. Luciano. A follow-up appointment was noted for the patient and the patient was discharged with no untoward effects. Stimulator operation instructions were given to the patient by the [employer] food service sales representatives. The patient was instructed to go to the ER if experiencing perceived neurological complications. The patient was provided with contact information for the [employer] food service sales representatives as needed for trial.? * Procedure Codes:?20235 Percu taneous implantation of neurostimulator electrode array, epidural * Follow Up:?3 days. * Images: * Sign off status: Completed true * Provider:?Dipak Luciano Date:?08/24/20 24 Generated for Juan M mcclellan/Shanita/eTransmitting on:?09/16/2024 05:45 AM CDT History and Physical [...] upper and low er extremities on 03/18/24 Examination Category Sub-Category Detail Notes General examination Heart: rhythm is re gular Lungs: clear to auscultatio n Extremities: Appearance/ Psychiatric: no apparent dis tress; pleasant and interacting appropriately; calm Skin:
--- OUTSIDE RECORDS SUMMARY | 2024-09-16 05:46 | XMS_ITS | Patient Health Record ---
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 Name Role Phone Raimundo Mobley APRN Primary Care Provider Alexey Luciano MD, Dipak Unavailable [phone] Tapan Frost DO Unavailable Unavailable Kasey Delacruz Unavailable [phone] Allergies Allergen (clinical drug ingredient) Drug/Non Drug Allergy documented on EMR Reaction Allergy Type Onset Date Status procaine (uncoded) palpitations Allergy Active meperidine meperidine palpitations Drug Allergy Ac tive magnesium citrate magnesium citrate stomach upset Drug Aller gy Active Results Component Value Reference Range Notes Urine tox screen / MS if ind icated Reviewed date:06/01/2024 09:10:11 AM Interpretation:Consistent Performing Lab: Notes/Report: Consistent Reason For Referral Reason Chronic back pain gr eater than 3 months duration Diagnosis 1 Dorsalgia, unspecifi ed (M54.9) Diagnosis 2 Other chronic pain ( G89.29) Referring Provider First Name Tapan Referring Provider Last Name Margot Referring Provider Speciality Orthopedic Surgery Referred Organization [facility] Referred Provider Dipak Luciano Referred Address [address] [place], [id number], Referred Provider Specialty Pain Managem ent General Notes Lacey Brower 03:11:29 PM >Sent for insurance verification. Need SSN also., Deisi Quinn 03/24/2024 04:39:07 PM > [employer] MEDICARE. NO COPAY. Referral Priority Routine Reason Pre-spinal cord stim ulator trial psychological evaluation Diagnosis 1 Spinal stenosis, lum bar region with neurogenic claudication (M48.062) Referral Organization [facility] [employer] Referring Provider First Name Dipak Referring Provider [...] neurogenic claudication (M48.062) Referral Organization [facility] [employer] [facility] Referring Provider First Name Dipak Referring Provider Last Name Ankita Referring Provider Speciality Pain Manag ement Referred Provider Tapan Frost Referred Provider Specialty Orthopedic S urgery General Notes Anca Gonzales 2023 12:21:20 PM > referral faxChristian price Brenda 09/07/2024 09:19:40 AM > received a fax with appt date and time Referral Priority Routine Referral Appointment Date 09/08/2024 Medications Medication SIG (Take, Route, Frequency, Duration) [...] 2 cap(s) orally once a day Active Social History Tobacco Use: Social History [...] Problem Status W/U Status Risk Notes Problem Solitary sacroiliitis (519706306) Sacroiliitis, not elsewhere classified (M46.1) Active confirmed Problem Anxiety disorder (229828675) 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) Active confirmed Problem Hypersomnia (28559559) Hypersomnia, unspecified (G47.10) Active confirmed Problem Chronic pain (50671197) Other chronic pain (G89.29) Active confirmed Problem Backache (388091745) Dorsalgia, unspecified (M54.9) Active confirmed Problem Long-term current use of drug therapy (724633040) 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 (Z79.899) Active confirmed Problem Neurogenic claudication (982543826) Spinal stenosis, lumbar region with neurogenic claudication (M48.062) Active confirmed Problem Low back pain (finding) (616039190) Vertebrogenic low back pain (M54.51) Active confirmed Vital Signs Temperature 97.7 degrees Fahrenheit 08/27/2024 Adalgisa ent [...] Location Date Provider Diagnosis [facility] [address] [place], [place] [id number] 06/01/2024 Kasey Arzola Vertebrogenic low ba ck pain M54.51 ; Sacroiliitis, not elsewhere classified M46.1 ; Hypersomnia, unspecified G47.10 and Other group home (current) drug therapy Z79.899 [facility] [address] [place], [place] [id number] 07/01/2024 Dipak Luciano Vertebrogenic low ba ck pain M54.51 ; Spinal stenosis, lumbar region with neurogenic claudication M48.062 and 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 Z79.899 [facility] [address] [place], [place] [phone] 08/05/2024 Dipak Luciano Other specified anxiety disorders F41.8 ; Vertebrogenic low back pain M54.51 ; Spinal stenosis, lumbar region with neurogenic claudication M48.062 and 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 Z79.899 [facility] [address] [place] [address] 08/24/2024 Dipak Luciano Other specified anxiety disorders F41.8 ; Vertebrogenic low back pain M54.51 and Spinal stenosis, lumbar region with neurogenic claudication M48.062 [facility], [facility] [address] [place], [place] [id number] 08/27/2024 Dipak Luciano Vertebrogenic low ba ck pain M54.51 ; 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 Luciano. Plan to obtain EMG / NCS reports completed at [facility] in 02/2024. Printed information regarding SCS trial [...] and radicular lower extremity pain. 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 07/01/2024 Other group home (current) drug therapy (ICD-10 - Z79.899) Patient was given a copy of the Treatment Agreement he signed on 05/18/24. 2022 opioid (OUD) risk tool score = 1. This places the patient in the low risk category. Patient has not requested opioid therapy. 06/01/2024 Hypersomnia, unspecified (ICD-10 - G47.10) Plan to obtain [facility] Sleep Study report from 03/2024. 06/01/2024 Other group home (current) drug therapy (ICD-10 - Z79.899) Patient [...] / or illicit controlled substance(s). 08/05/2024 Other group home (current) drug therapy (ICD-10 - Z79.899) Patient [...] care discussed with patient / patient's . 06/01/2024 Other Continue above medications as currently prescribed by PCP. Case reviewed, treatment plan approved, and visit note edited by Dr. Luciano. 07/01/2024 Other 08/24/2024 Other Start cefazolin (per weight based guidelines), IV x 1 prior to procedure. 08/27/2024 Other Plan Of Treatment No Information Insurance Providers Payer Name Payer Address Payer Phone Subscriber Number Group Number Insured Name Patient Relationship to Insured Coverage Start Date Coverage End Date [facility] [address] [address] [place] [address] [phone] [id number] Deniz Wilkinson Self - patient is the insured Medical (General) History Medical History History ICD Code Chronic pain [...] Surgery Date(Month/Year) Knee surgery, right, performed in [place], [place], 1973 Exploratory laparotomy, performed in [place], [place], 1981 Vasectomy, performed in [place], [place] , 1982 Appendectomy, peformed in [place], [place], 1985 Cholecystectomy, performed in [place], [place], 1992 Repair of scalp (fall), performed in [place], [place], 2000 Nephrectomy, partial, right (kidney cancer), performed at [facility] in [place], [place], 2014 Cataract surgery, performed in [place], [place], 2022 Hospitalization History Reason Date(Month/Year) Heart problems, 2001 Fall, 2004
[2024-09-16] MEDS: sodium chloride 0.9% 1,000 ML 30 ML IV (06:16)
--- NOTE | 2024-09-16 06:31 | W.PM.OPSUD ---
Surgery/Procedure H&P Update DATE OF PROCEDURE: September 16, 2024 DATE H&P PERFORMED: 09/11/24 H&P UPDATE INFORMATION: I have reviewed H&P completed within last 30 days, I have examined patient prior to procedure and No changes to prior documentation PREOP DIAGNOSIS: Lumbar stenosis with neurogenic claudication PLANNED PROCEDURE: Operation Date: 09/16/24 07:00 Proposed Procedures p Paddle Electrode Placement(Not Applicable) - DO roger Lopez Spinal Cord Stimulator Placement(Not Applicable) - Tapan Frost DO
[2024-09-16] MEDS: midazolam 1 mg/mL INJ 2 mL 2 MG IVP (06:41)
--- NOTE | 2024-09-16 06:41 | ANES.PREANE2 ---
Pre-Anesthetic Assessment Height/Weight: Height 1.75 m Weight 74.843 kg Temp Pulse BP Pulse Ox O2 Del Method 98 F 74 129/69 98 Room Air 09/16/24 06:01 09/16/24 06:01 09/16/24 06:01 09/16/24 06:01 09/16/24 06:07 Preop Diagnosis: Lumbar stenosis with neurogenic claudication Operation Date: 09/16/24 07:00 Proposed Procedures p Paddle Electrode Placement(Not Applicable) - Tapan Frost DO s Spinal Cord Stimulator Placement(Not Applicable) - Tapan Frost DO Familial anesthetic complications: None Was Beta Jason taken within 24 hours: N/A Was Clonidine taken within 24 hours: N/A Last intake: Intake Last Liquid Date 09/15/24 Last Liquid Time 19:00 Last Solid Date 09/15/24 Last Solid Time 17:00 Social No alcohol and No tobacco former smoker Exam alert, oriented x 3, clear to auscultation bilaterally and regular rate & rhythm Airway Mallampati: Class II Dentition: false Pulmonary Asthma (Does have bronchospasms ) CV/HEM secondary polycythemia Chronic Renal Insufficiency (R partial nephrectomy) Anesthetic Plan ASA status: 3 Anesthesia: General Risk of > 500 ml blood loss (7ml/kg in children): No Medications/Allergies Home Medications Medication Instructions Recorded Confirmed Last Taken Type apxzrwv-atvslnqosxnqt-mlqxdfaa 250 2 tab PO Q6H PRN Headache 10/17/22 09/15/24 10/17/22 History mg-250 mg-65 mg tablet (Excedrin Migraine) cholecalciferol (vitamin D3) 50 50 mcg PO DAILY 10/17/22 09/15/24 09/15/24 History mcg (2,000 unit) capsule (Vitamin D3) diphenhydramine HCl 50 mg capsule 50 mg PO QPM PRN Sleep 10/17/22 09/15/24 09/14/24 History (Sleep Aid (diphenhydramine)) docusate sodium 50 mg capsule 50 mg PO DAILY 10/17/22 09/15/24 09/15/24 History (Stool Softener) albuterol sulfate 90 mcg/actuation 2 puff inhalation Q6H PRN 10/23/23 09/15/24 09/13/24 Rx aerosol inhaler (ProAir HFA) shortness of breath or wheezing #8.5 grams tizanidine 6 mg capsule 6 mg PO TID PRN muscle spasticity 01/15/24 09/15/24 09/15/24 Rx #90 caps mecobalamin (vitamin B12) 1,000 1,000 mcg PO DAILY #30 tabs 01/28/24 09/15/24 09/15/24 Rx mcg chewable tablet (B12 Active) finasteride 5 mg tablet 5 mg PO DAILY #90 tabs 04/13/24 09/15/24 09/15/24 Rx sertraline 100 mg tablet 100 mg PO DAILY #90 tabs 04/13/24 09/15/24 09/15/24 Rx tamsulosin 0.4 mg capsule 0.8 mg (2 x 0.4 mg) PO DAILY #180 04/13/24 09/15/24 09/15/24 Rx caps gabapentin 300 mg capsule 300 mg PO TID PRN pain 05/19/24 09/15/24 09/15/24 History timolol maleate 0.5 % eye drops 1 drp ophthalmic (eye) DAILY 07/29/24 09/15/24 09/15/24 History Allergies Allergy/AdvReac Type Severity Reaction Status Date / Time magnesium citrate Allergy sweating Verified 09/11/24 09:56 all over/ vomiting meperidine [From Demerol] Allergy ADR/ALGY-Pa Verified 09/11/24 09:56 lpitations procaine [From Novocain] Allergy ADR/ALGY-Pa Verified 09/11/24 09:56 lpitations Current Medications Generic Name Dose Route Start Last Admin Trade Name Freq PRN Reason Stop Dose Admin Sodium Chloride 1,000 mls @ 30 mls/hr 09/16/24 06:00 09/16/24 06:16 Sodium Chloride 0.9% IV 09/17/24 05:59 30 mls/hr .Q24H ERIC Administration PFSH Anesthesia Medical History Erythrocytosis B12 nutritional deficiency COVID-19 Chronic back pain greater than 3 months duration Snoring Excessive daytime sleepiness Muscle spasm Bronchitis with bronchospasm Major depression Truncal muscle weakness Seasonal allergies Paralysis of right lower extremity BPH (benign prostatic hyperplasia) Surgical History Hx of vasectomy History of exploratory laparotomy Hx of right knee surgery Hx of cholecystectomy History of nephrectomy, right hx of partial right nephrectomy Family History Other CAD (coronary artery disease) Cancer Denies family history of Diabetes Hypertension Social History Smoking and tobacco/nicotine status: never used tobacco/nicotine Quit status (tobacco/nicotine): has quit using Year quit tobacco: 2000 Alcohol intake: never Substance/Drug Use: never Household members: spouse Marital status: Data Anesthesia Cardiac Studies: No Data to Display
[2024-09-16] MEDS: ceFAZolin 2,000 mg SDV 2000 MG IVP (06:58)
[2024-09-16] MEDS: vancomycin 1,000 MG SDV 1000 MG XX (07:42)
[2024-09-16] MEDS: lidocaine-epi 2% PF 1:200,000 20 mL SDV XX (07:42)
--- NOTE | 2024-09-16 08:45 | PM.OP ---
Operative Report Date of procedure: September 16, 2024 Pre-op diagnosis: Lumbar stenosis with neurogenic claudication Post-op diagnosis: same Procedure done: 1. Neurostimulator paddle placement 2. Neurodegenerative battery placement for neurostimulator paddle. Surgeon: Tapan Frost DO Estimated blood loss (mL): 25 Procedure: 1. Neurostimulator paddle placement 2. Neurodegenerative battery placement for neurostimulator paddle. Patient was brought to the procedure after an Gonasi was placed in the prone position. All areas impingement well-padded. Patient's prepped and draped also fashion. Skin incision made over the thoracic spine. The approach was made through the T9-10 disc base level. This was confirmed under C-arm guidance. The skin incision made over the thoracic spine. Subperiosteal dissection was made out to the lamina of T9-T10. Rongeur was used to take down the interspinous ligament. As well as paraspinous process of T9. A high-speed bur was used to take down part of the lamina of T9. Kerrison rongeur was used to take further bone. Ligamentum flavum was split using the curved curettes and rongeur's. The Kerrison rongeur was then used to open up the space with the ligamentum flavum. The hockey-stick trial was then slid up. And then the neurostimulator paddle was slid up between the 7 8 disc base. This confirmed on AP and lateral fluoroscopy. The wires were then sutured down the spinous process of T10. Next attention was brought to placing the nerve generator battery. Skin is was made over the right flank a skin incision was made and the Bovie was used to cut through the dermis and epidermis a pocket was made in the subcu fat. And then the trial battery size was placed to ensure to take good fit. Next the wire passer was passed through the battery pocket into the laminectomy site. Wires were then passed into the battery pouch. These are connected to the battery trialed to be good position once the wires were placed. The battery was then buried into the incision. And then wounds were closed in layered fashion with 0 Vicryl 2-0 Vicryl and Monocryl suture. Sterile dressings were applied patient was transferred to the PACU in stable condition.
[2024-09-16] MEDS: HYDROcodone-acetaminophen 5-325 mg Tablet 2 TAB PO (10:00)
--- NOTE | 2024-09-16 11:20 | ANE.PACU2 ---
Inpatient post-anesthesia follow up: Airway intact: Yes Vital signs: Temperature 97.9 F Pulse Rate 86 Respiratory Rate 18 Blood Pressure 126/78 Pulse Oximetry 95 Oxygen Delivery Me thod Room Air Oxygen Flow Rate 8 Fraction of Inspir ed Oxygen Hydration adequate: Yes Nausea and vomiting: No Pain level: 1 Mental status: Baseline
--- NOTE | 2024-09-16 11:36 | PC.NURSE ---
0945: pt advised of 10/10 pain, then turned off the new stimulator which dropped his pain to 5 or 6 /10. spouse advised they would contact the rep for additional programs
--- NOTE | 2024-09-16 14:13 | XR_ITS ---
WS: [id number] Exam: XR lumbar spine 2-3V* [id number] Date/Time of Exam: 09/16/2024 2:13 PM Reason For Exam: OR PIC, paddle placement Intraoperative C-arm images of the lower thoracic spine are submitted. Images were obtained for intra operative visualization purposes.
== END 2024-09-16 11:22 | disposition home or self-care (01) ==
PROVIDERS: PCP Clinical Nurse Specialist Adult Health; Visit Provider Orthopaedic Surgery
PROC: (CPT 63664; principal; 2024-09-16 07:00)
PROC: (CPT 63685; 2024-09-16 07:00)
DX: M48.062 Spinal stenosis, lumbar region with neurogenic claudication (principal); Z87.891 Personal history of nicotine dependence; N40.0 Benign prostatic hyperplasia without lower urinary tract symptoms
CPT/HCPCS: 63650; 63685; 72100; 76000; C1778; C1820; J0330; J0690; J1100; J2250; J2405; J2704; J2710; J3010; J3370; J3490; J7030

== ENCOUNTER 2024-09-18 08:45 | Emergency (ER) | payer MEDICARE, SELFPAY ==
[2024-09-18 08:50] VITALS: BP 138/71; PULSE 92; RESP 16; TEMP 36.7; O2SAT 99; BMI 23.6
--- NOTE | 2024-09-18 09:09 | CTR_ITS ---
PROCEDURE INFORMATION: Exam: CT Abdomen And Pelvis With Contrast Exam date and time: 09/18/2024 10:08 AM Age: 69 years old Clinical indication: Abdominal pain; Generalized; Prior surgery; Surgery date: 3-7 days post-operative; Surgery type: Spinal cord stimulator; Additional info: Abdominal pain, recent spinal cord stimulator placement TECHNIQUE: Imaging protocol: Computed tomography of the abdomen and pelvis with contrast. Radiation optimization: All CT scans at this facility use at least one of these dose optimization techniques: automated exposure control; mA and/or kV adjustment per patient size (includes targeted exams where dose is matched to clinical indication); or iterative reconstruction. Contrast material: OMNI 350; Contrast volume: 100 ml; Contrast route: INTRAVENOUS (IV); COMPARISON: CT abdomen pelvis w con* [id number] 01/24/2024 8:40 AM RADIATION DOSE METRICS: Total DLP (mGy-cm): 644.66 FINDINGS: Tubes, catheters and devices: There is a spinal stimulator posteriorly with leads entering the spinal canal at T9-10. The distal leads are posterior to the T7 and T8 vertebral bodies. Lungs: Lung bases are clear as visualized. Liver: There is mild fatty infiltration of the liver. The liver is otherwise normal. Gallbladder and biliary ducts: There are surgical clips in the gallbladder fossa. There is mild intra and extrahepatic biliary ductal dilatation similar to that seen on prior exam. Pancreas: Normal. No ductal dilation. Spleen: The spleen is enlarged measuring 14.3 cm in maximal dimension (previously 13.5 cm) Adrenal glands: Normal. No mass. Kidneys and ureters: There are posttreatment changes involving the superior pole of the right kidney unchanged. Kidneys are otherwise normal. Stomach and bowel: There are scattered colonic diverticula. No large bowel wall thickening is appreciated. There are air-fluid levels involving nondilated loops of large and small bowel. This is a nonspecific finding but can be seen with an ileus. Appendix: No evidence of appendicitis. Intraperitoneal space: Unremarkable. No free air. No significant fluid collection. Vasculature: The aorta is normal in caliber. There is calcified plaque involving the aorta and its branch vessels. Lymph nodes: Unremarkable. No enlarged lymph nodes. Urinary bladder: Unremarkable as visualized. Reproductive: Unremarkable as visualized. Bones/joints: Unremarkable. No acute fracture. Soft tissues: Unremarkable. CT/CT abdomen pelvis w con* [id number] IMPRESSION: 1. Diverticulosis. 2. Mild splenomegaly. 3. Posttreatment changes involving the superior pole of the right kidney. 4. Air-fluid levels involving nondilated loops of large and small bowel. Again, this is a nonspecific finding but can be seen with an ileus.
--- NOTE | 2024-09-18 09:10 | ED_ITS ---
HPI - Abdominal Pain 2 General: Chief Complaint: Wound/Laceration Stated Complaint: belly ache, bandage is bleeding Time Seen by Provider: 09/18/24 08:59 Source: patient and family () Mode of arrival: ambulatory Limitations: no limitations History of Present Illness: Patient is a very nice 69-year-old male who presents to ED today along with his for main concern of abdominal pain but also a separate concern that they are recent spinal cord stimulator surgical site bandage is soaked in blood. Patient underwent spinal cord stimulator placement by Dr. Frost 2 days ago. Patient states following surgery he began noticing abdominal pain. He does not feel like abdominal pain is necessarily worsened but it has not improved. He states he is eating a little bit . He is still passing gas and stool. Has not had any vomiting. Previous abdominal surgeries include an appendectomy and cholecystectomy. He is up-to-date on colonoscopy and just had this several months ago and was reportedly normal. He feels like his back pain is doing well. They did note his surgical site bandage is saturated with blood. They have not noticed any redness, purulent drainage, or odor. Patient is not complaining of any neurologic complaints or radicular symptoms. MD elicited complaint: abdominal pain Pertinent past history: none Onset (ago): day(s) Pain Consistency: constant Location: Diffuse Severity: severe Radiation: none Migration to: no migration Exacerbating factors: nothing Relieving factors: nothing Associated Symptoms: Denies chills, diarrhea, dysuria, fever(s), hematochezia, hematemesis, melena, nausea and vomiting Related Data Home Medications Medication Instructions Recorded Confirmed jcswpxe-opcvywtnwcxpj-kzfzfcum 250 2 tab PO Q6H PRN Headache 10/17/22 09/18/24 mg-250 mg-65 mg tablet (Excedrin Migraine) cholecalciferol (vitamin D3) 50 50 mcg PO DAILY 10/17/22 09/18/24 mcg (2,000 unit) capsule (Vitamin D3) diphenhydramine HCl 50 mg capsule 50 mg PO QPM PRN Sleep 10/17/22 09/18/24 (Sleep Aid (diphenhydramine)) docusate sodium 50 mg capsule 50 mg PO DAILY 10/17/22 09/18/24 (Stool Softener) gabapentin 300 mg capsule 300 mg PO TID PRN pain 05/19/24 09/18/24 timolol maleate 0.5 % eye drops 1 drp ophthalmic (eye) DAILY 07/29/24 09/18/24 albuterol sulfate 90 mcg/actuation 2 inh inhalation Q6H 09/18/24 09/18/24 aerosol inhaler Previous Rx's Medication Instructions Recorded tizanidine 6 mg capsule 6 mg PO TID PRN muscle spasticity 01/15/24 #90 caps mecobalamin (vitamin B12) 1,000 1,000 mcg PO DAILY #30 tabs 01/28/24 mcg chewable tablet (B12 Active) finasteride 5 mg tablet 5 mg PO DAILY #90 tabs 04/13/24 sertraline 100 mg tablet 100 mg PO DAILY #90 tabs 04/13/24 tamsulosin 0.4 mg capsule 0.8 mg (2 x 0.4 mg) PO DAILY #180 04/13/24 caps hydrocodone 5 mg-acetaminophen 325 1 tab PO Q4H PRN pain 7 days #42 09/17/24 mg tablet tabs Allergies Allergy/AdvReac Type Severity Reaction Status Date / Time magnesium citrate Allergy sweating Verified 09/11/24 09:56 all over/ vomiting meperidine [From Demerol] Allergy ADR/ALGY-Pa Verified 09/11/24 09:56 lpitations procaine [From Novocain] Allergy ADR/ALGY-Pa Verified 09/11/24 09:56 lpitations Review of Systems 2 Const: Denies: fever(s), chills, body aches, fatigue or malaise Card: Denies: chest pain Resp: Denies: dyspnea GI: Reports: abdominal pain; Denies: nausea, vomiting, hematemesis, diarrhea, hematochezia or melena : Denies: flank pain, difficulty urinating, dysuria, urinary frequency, urinary urgency or urinary hesitancy Musc: Reports: back pain (this seems to be improving overall after surgery); Denies: neck pain, extremity pain, extremity swelling, joint pain or joint swelling Neuro: Denies: headache(s), numbness in extremities, weakness in extremities, sensory changes or difficulty walking PFSH ED 2 PFSH: Medical History Erythrocytosis B12 nutritional deficiency COVID-19 Chronic back pain greater than 3 months duration Snoring Excessive daytime sleepiness Muscle spasm Bronchitis with bronchospasm Major depression Truncal muscle weakness Seasonal allergies Paralysis of right lower extremity BPH (benign prostatic hyperplasia) Surgical History Hx of vasectomy History of exploratory laparotomy Hx of right knee surgery Hx of cholecystectomy History of nephrectomy, right hx of partial right nephrectomy Family History Other CAD (coronary artery disease) Cancer Denies family history of Diabetes Hypertension Social History Smoking and tobacco/nicotine status: never used tobacco/nicotine Quit status (tobacco/nicotine): has quit using Year quit tobacco: 2000 Alcohol intake: never Substance/Drug Use: never Household members: spouse Marital status: Physical Exam 2 Const: COMMON NORMALS: no acute distress, patient oriented x3, no limitations, alert and well nourished GENERAL APPEARANCE: cooperative O RIENTATION/CONSCIOUSNESS: Yes awake, Yes oriented to person, Yes oriented to place and Yes oriented to time Eye: COMMON NORMALS: no scleral icterus Resp: COMMON NORMALS: normal respiratory effort and clear to auscultation bilaterally AUSCULTATION: clear to auscultation bilaterally Cardio: COMMON NORMALS: regular rate and regular rhythm RATE: regular rate RHYTHM: regular rhythm GI: COMMON NORMALS: Normal to inspection, nondistended, normoactive bowel sounds present, Soft to palpation, No hepatosplenomegaly present and no masses INSPECTION: Yes normal to inspection AUSCULTATION: Yes normoactive bowel sounds PALPATION: Yes Soft to palpation, Yes Tenderness to palpation present (GI) (diffusely ), No Guarding due to palpation present (GI), No Rigid due to palpation and Yes No hepatosplenomegaly present : COMMON NORMALS: Yes no CVA tenderness BLADDER/KIDNEY EXAM: Yes no CVA tenderness Back/Pelvis: COMMON NORMALS: no CVA tenderness and straight leg raise negative bilaterally BACK IMAGE (MALE): 1. surgical bandage blood soaked-removed; no active bleeding noted; incision appears clean and well approximated 2. incision appears clean Extremity: COMMON NORMALS: normal to inspection, full ROM, capillary refill normal, no clubbing, cyanosis or edema, no calf tenderness and no pedal edema GENERAL: Yes normal exam except as noted Neuro: COMMON NORMALS: patient oriented x3, moves all extremities, no focal motor deficits, no sensory deficits noted and gait normal S ENSORIUM/ORIENTATION: Yes alert, Yes oriented to person, Yes oriented to place and Yes oriented to time Course 2 Vital Signs: Vital signs: Vital Signs Temperature 98.1 F 09/18/24 08:50 Pulse Rate 78 09/18/24 11:04 Respiratory Rate 16 09/18/24 08:50 Blood Pressure 115/77 09/18/24 11:04 Pulse Oximetry 96 09/18/24 11:04 Oxygen Delivery Me thod Room Air 09/18/24 11:04 MDM - Abdominal Pain Medical Decision Making Patient surgical incisions from his spinal cord stimulator appear well. He is not having any complications related to the surgery. Complications following a spinal cord stimulator include spinal epidural hematoma, spinal cord trauma, dural puncture, infection, seroma, among others. His vital signs and blood work are unremarkable. CT scan is notable for postoperative paralytic ileus. He has no obstruction. Discussed treatment at home with bowel rest/liquid diet and advancing as tolerated. Limiting opiate pain medication when feasible. Strict return ED precautions given. Medical Records I reviewed the patient's medical records. Lab Data I reviewed the patient's lab results. 09/18/24 09:30 09/18/24 09:30 Labs/Radiology: Radiology Impressions Abdomen/Pelvis CT 09/18/24 09:09 IMPRESSION: 1. Diverticulosis. 2. Mild splenomegaly. 3. Posttreatment changes involving the superior pole of the right kidney. 4. Air-fluid levels involving nondilated loops of large and small bowel. Again, this is a nonspecific finding but can be seen with an ileus. Laboratory Results WBC 10.33 10^3/uL (3.29-11.43) 09/18/24 09:30 RBC 5.28 10^6/uL (3.85-5.65) 09/18/24 09:30 Hgb 13.10 g/dL (11.27-16.99) 09/18/24 09:30 Hct 42.9 % (37-53) 09/18/24 09:30 MCV 81.3 fl (82-101) L 09/18/24 09:30 MCH 24.8 pg (27-33) L 09/18/24 09:30 MCHC 30.5 g/dL (30-55) 09/18/24 09:30 RDW 13.5 % (12.1-15.1) 09/18/24 09:30 Plt Count 173 10^3/cmm (157-399) 09/18/24 09:30 MPV 10.1 fL (7.4-10.4) 09/18/24 09:30 Neut % (Auto) 77.6 % 09/18/24 09:30 Lymph % (Auto) 10.8 % 09/18/24 09:30 Pettis % (Auto) 10.8 % 09/18/24 09:30 Eos % (Auto) 0.2 % 09/18/24 09:30 Baso % (Auto) 0.2 % 09/18/24 09:30 Neut # (Auto) 8.01 10^3/uL (1.8-7.7) H 09/18/24 09:30 Lymph # (Auto) 1.1 10^3/uL (0.8-4.8) 09/18/24 09:30 Pettis # (Auto) 1.1 10^3/uL (0.2-0.9) H 09/18/24 09:30 Eos # (Auto) 0.0 10^3/uL (0.0-0.8) 09/18/24 09:30 Baso # (Auto) 0.0 10^3/uL (0.0-0.1) 09/18/24 09:30 Nucleated RBC % (auto) 0 % 09/18/24 09:30 Nucleated RBCs # 0.0 /100WBC 09/18/24 09:30 Sodium 136 mmol/L (136-145) 09/18/24 09:30 Potassium 3.8 mmol/L (3.5-5.1) 09/18/24 09:30 Chloride 100 mmol/L (98-107) 09/18/24 09:30 Carbon Dioxide 24 mmol/L (22-29) 09/18/24 09:30 Anion Gap 15.8 (5-19) 09/18/24 09:30 BUN 13 mg/dL (8-23) 09/18/24 09:30 Creatinine 0.7 mg/dL (0.7-1.2) 09/18/24 09:30 GFR Calculation 112.5 mL/min (90-130) 09/18/24 09:30 Glucose 108 mg/dL (65-115) 09/18/24 09:30 Calculated Osmolality 283 mOsm/kg (285-295) L 09/18/24 09:30 Lactic Acid 1.9 mmol/L (0.5-2.2) 09/18/24 09:30 Calcium 8.5 mg/dL (8.5-10.5) 09/18/24 09:30 Total Bilirubin 0.5 mg/dL (0.15-1.2) 09/18/24 09:30 AST 33 U/L (0-40) 09/18/24 09:30 ALT 10 U/L (0-41) 09/18/24 09:30 Alkaline Phosphatase 62 U/L (40-130) 09/18/24 09:30 Total Protein 6.6 g/dL (6.6-8.7) 09/18/24 09:30 Albumin 3.8 g/dL (3.5-5.2) 09/18/24 09:30 Globulin 2.8 g/dL (1.3-4.6) 09/18/24 09:30 Lipase 14 U/L (13-60) 09/18/24 09:30 Amorphous Sediment Not Reportable 09/18/24 10:56 All radiology interpretation(s) finalized by discharge Discharge Plan Discharge Patient Disposition: Home Clinical Impression: Postoperative ileus Condition: Stable Prescriptions: No Action tizanidine 6 mg capsule 6 mg PO TID PRN (Reason: muscle spasticity) Qty: 90 4RF mecobalamin (vitamin B12) [B12 Active] 1,000 mcg tablet,chewable 1,000 mcg PO DAILY Qty: 30 3RF timolol maleate 0.5 % drops 1 drp ophthalmic (eye) DAILY finasteride 5 mg tablet 5 mg PO DAILY Qty: 90 3RF sertraline 100 mg tablet 100 mg PO DAILY Qty: 90 3RF tamsulosin 0.4 mg capsule 0.8 mg PO DAILY Qty: 180 3RF hydrocodone-acetaminophen 5-325 mg tablet 1 tab PO Q4H MDD 6 PRN (Reason: pain) 7 Days Qty: 42 0RF diphenhydramine HCl [Sleep Aid (diphenhydramine)] 50 mg Capsule 50 mg PO QPM PRN (Reason: Sleep) Stool Softener 50 mg Capsule 50 mg PO DAILY Excedrin Migraine 250-250-65 mg Tablet 2 tab PO Q6H PRN (Reason: Headache) cholecalciferol (vitamin D3) [Vitamin D3] 50 mcg (2,000 unit) Capsule 50 mcg PO DAILY gabapentin 300 mg capsule 300 mg PO TID PRN (Reason: pain ) albuterol sulfate 90 mcg/actuation HFA aerosol inhaler 2 inh INHALATION Q6H Discharge Orders: Discharge ED (Routine); Ordered 09/18/24 Ordered By: Usha Carrero Referrals: Raimundo Mobley [facility] DIRECTOR [Primary Care Provider] - Patient Instructions: Ileus (ED) Activity Restrictions/Additional Instructions: As we discussed, your CT scan today showing a postoperative ileus. You may limit your opiate pain medication as much as feasible as this can further slow the gut. I would like you to do a clear liquid diet over the next 48 hours or until abdominal pain begins to improve. From there you can slowly increase to soft foods and then to a normal diet as tolerated. As we discussed you need to return to the emergency department for worsening abdominal pain, episodes of vomiting, fevers, or any other concerns you may have. Coding Level of Care Code ED Photographic Laboratory Supervisor for Anali Mosley
[2024-09-18] MEDS: morphine 4 mg/mL SDV 1 mL IVP (09:34)
[2024-09-18] MEDS: ondansetron 2 mg/ML SDV 2 mL 4 MG IVP (09:34)
[2024-09-18 09:39] LABS: Basophils % 0.2 %; Eosinophils % 0.2 %; Hematocrit 42.9 % (37-53); Lymphocytes # 1.1 10^3/uL (0.8-4.8); Lymphocytes % 10.8 %; Mean Corpuscular HGB Conc 30.5 g/dL (30-55); Mean Corpuscular Hemoglobin 24.8 pg (27-33); Mean Corpuscular Volume 81.3 fl (82-101); Mean Platelet Volume 10.1 fL (7.4-10.4); Monocytes # 1.1 10^3/uL (0.2-0.9); Monocytes % 10.8 %; Neutrophils # 8.01 10^3/uL (1.8-7.7); Neutrophils % 77.6 %; Nucleated Red Blood Cells % 0 %; Platelet Count 173 10^3/cmm (157-399); Red Blood Count 5.28 10^6/uL (3.85-5.65); Red Cell Distribution Width 13.5 % (12.1-15.1); White Blood Count 10.33 10^3/uL (3.29-11.43)
[2024-09-18 10:07] LABS: Alanine Aminotransferase 10 U/L (0-41); Albumin Level 3.8 g/dL (3.5-5.2); Alkaline Phosphatase 62 U/L (40-130); Anion Gap 15.8 (5-19); Aspartate Amino Transferase 33 U/L (0-40); Blood Urea Nitrogen 13 mg/dL (8-23); Calcium 8.5 mg/dL (8.5-10.5); Carbon Dioxide 24 mmol/L (22-29); Chloride 100 mmol/L (98-107); Creatinine Clr Calc Pharmacy 93.4517; Globulin 2.8 g/dL (1.3-4.6); Glomerular Filtration Rate 112.5 mL/min (90-130); Glucose 108 mg/dL (65-115); Lipase 14 U/L (13-60); Osmolality Calculated 283 mOsm/kg (285-295); Potassium 3.8 mmol/L (3.5-5.1); Sodium 136 mmol/L (136-145); Total Bilirubin 0.5 mg/dL (0.15-1.2); Total Protein 6.6 g/dL (6.6-8.7)
[2024-09-18 10:09] LABS: Lactic Sepsis W/Reflex 1.9 mmol/L (0.5-2.2)
[2024-09-18] MEDS: iohexol 350 mg/mL 500 mL Btl (per mL) IV (10:21)
[2024-09-18 11:04] VITALS: BP 115/77; PULSE 78; O2SAT 96
[2024-09-18 11:07] LABS: Bilirubin Urine Negative (Negative); Blood Urine Negative (Negative); Glucose Urine UA Negative (Normal); Ketones Urine Trace (Negative); Leukocyte Esterase Urine Negative (Negative); Nitrate Urine Negative (Negative); Protein Urine Trace (Negative); Urine Appearance Clear (CLEAR); Urine Color Yellow (Yellow)
[2024-09-18 11:12] LABS: Add Urine Microscopic? YES; Bacteria Urine None Seen /hpf; Hyaline Casts Urine 1.21 /lpf; RBC Urine 0-2 /hpf (0-2); Squamous Epithelial Cell Urine 0-5 /hpf (0-5); WBC Urine 0-5 /hpf (0-5)
[2024-09-18 11:31] LABS: Specific Gravity, Urine 1.036 (1.005-1.030)
[2024-09-18 11:32] VITALS: BP 130/68; PULSE 74; O2SAT 98
== END 2024-09-18 11:42 | disposition home or self-care (01) ==
PROVIDERS: Emergency Provider Physician Assistant; PCP Clinical Nurse Specialist Adult Health
DX: K91.89 Other postprocedural complications and disorders of digestive system (principal); Z96.82 Presence of neurostimulator; Z90.49 Acquired absence of other specified parts of digestive tract
CPT/HCPCS: 74177; 80053; 81001; 83605; 83690; 85025; 96374; 96375; 99285; J2270; J2405

== ENCOUNTER 2024-09-23 12:00 | Oncology outpatient (recurring) (ONCR) | payer MEDICARE, SELFPAY ==
--- OUTSIDE RECORDS SUMMARY | 2024-08-26 12:01 | XMS_ITS | Patient Health Record ---
Author Name Unknown Organization [facility] Address [address] [place], [place] [address] Care Team Providers Care Bobbin Sorter Name Role Phone Raimundo Mobley APRN Primary Care Provider Alexey Luciano MD, Dipak Unavailable [phone] Tapan Frost DO Unavailable Unavailable Kasey Delacruz Unavailable [phone] ALLERGIES Allergen (clinical drug ingredient) Drug/Non Drug [...] Speciality Orthopedic Surgery Referred Organization [facility] Referred Provider Dipak Luciano Referred Address [address] [place], [id number], Referred Provider Specialty Pain Managem ent General Notes Lacey Brower 03:11:29 PM >Sent for insurance verification. Need SSN also., Deisi Quinn 03/24/2024 04:39:07 PM > [employer]. NO COPAY. Referral Priority Routine Reason Pre-spinal cord stim ulator trial psychological evaluation Diagnosis 1 Spinal stenosis, lum bar region with neurogenic claudication (M48.062) Referral Organization [facility] Referring Provider First Name Dipak Referring Provider Last Name Ankita Referring Provider Speciality Pain Manag ement Referred Provider Roberto Wiley Referred Provider Specialty Psychologist General Notes Anca Gonzales 2023 10:56:47 AM > referral faxedChristian Brenda 08/03/2024 03:25:42 PM > Psych eval completed 07/31/24 Referral Priority Routine Referral Appointment Date 07/31/2024 MEDICATIONS Medication SIG (Take, Route, Frequency, Duration) Notes Start Date End Date Status sertraline 100 mg 1 tab(s) orally once a day for 30 day(s) Active gabapentin 300 mg 1 cap orally TID Active finasteride 5 mg 1 tab(s) orally once a day for 30 day(s) Active docusate sodium 100 mg 1 cap(s) orally 2 times a day, as needed Active diphenhydrAMINE 25 mg 1 cap(s) orally ev slime 6 hours, as needed Active albuterol 90 mcg/inh 2 puff(s) inhaled e very 6 hours Active Vitamin D3 50 mcg 1 tab(s) orally once a day for 30 day(s) Active tiZANidine 6 mg 1 cap orally TID prn spasm Active timolol ophthalmic maleate 0.5% 1 gtt in each affected eye once a day for 30 day(s) Active tamsulosin 0.4 mg 2 cap(s) orally once a day Active SOCIAL HISTORY Tobacco Use: Social History [...] elsewhere classified (M46.1) Active confirmed Solitary sacroiliitis (033490689) Problem 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) Active confirmed Anxiety disorder (692952742) Problem Hypersomnia, unspecified (G47.10) Active confirmed Hypersomnia (61667082) Problem Other chronic pain (G89.29) Active confirmed Chronic pain (47785270) Problem Dorsalgia, unspecified (M54.9) Active confirmed Backache (133363337) Problem Other extermination supervisor (current) drug therapy (Z79.899) Active confirmed Long-term current use of drug therapy (038823363) Problem Spinal stenosis, lumbar region with neurogenic claudication (M48.062) Active confirmed Neurogenic claudication (070403455) Problem Vertebrogenic low back pain (M54.51) Active confirmed Low back pain (finding) (844628636) VITAL SIGNS Temperature 98.1 degrees Fahrenheit 08/05/2024 Adalgisa ent reported weight due to fall risk Oximetry 96 % 08/05/2024 Patient reporte d weight due to fall risk Blood pressure diastolic 79 mm Hg 08/05/2024 Pat ient reported weight due to fall risk Height 70 in 08/05/2024 Patient reporte d weight due to fall risk Blood pressure systolic 126 mm Hg 08/05/2024 Adalgisa ent reported weight due to fall risk Weight 163 lbs 08/05/2024 Patient reporte d weight due to fall risk BMI 23.39 kg/m2 08/05/2024 Patient reporte d weight due to fall risk Encounters Encounter Location Date Provider Diagnosis [facility] [address] [place], [place] [id number] 06/01/2024 Kasey Arzola Vertebrogenic low ba ck pain M54.51 ; Sacroiliitis, not elsewhere classified M46.1 ; Hypersomnia, unspecified G47.10 and Other extermination supervisor (current) drug therapy Z79.899 [facility] [address] [place], [place] [id number] 07/01/2024 Dipak Luciano Vertebrogenic low ba ck pain M54.51 ; Spinal stenosis, lumbar region with neurogenic claudication M48.062 and Other extermination supervisor (current) drug therapy Z79.899 [facility] [address] [place], [place] [id number] 08/05/2024 Dipak Luciano Other specified anxiety disorders F41.8 ; Vertebrogenic low back pain M54.51 ; Spinal stenosis, lumbar region with neurogenic claudication M48.062 and Other jail (current) drug therapy Z79.899 [facility] [address] [place] [id number] 08/24/2024 Dipak Luciano Other specified anxiety disorders F41.8 ; Vertebrogenic low back pain M54.51 and Spinal stenosis, lumbar region with neurogenic claudication M48.062 ASSESSMENTS Encounter Date Diagnosis Assessment Notes Treatment Notes Treatment Clinical Notes 06/01/2024 Sacroiliitis, not elsewhere classified (ICD-10 - M46.1) 06/01/2024 Vertebrogenic low back pain (ICD-10 - M54.51) Consider treatment options pending evaluation by Dr. Luciano. Plan to obtain EMG / NCS reports completed at [facility] in 02/2024. Printed information regarding [...] spine pain and radicular lower extremity pain. 08/05/2024 Other specified anxiety disorders (ICD-10 - F41.8) Plan monitored anesthesia care. 08/24/2024 Other specified anxiety disorders (ICD-10 - F41.8) Plan monitored anesthesia care. 08/24/2024 Vertebrogenic low back pain (ICD-10 - M54.51) Chronic axial lumbosacral spine pain and radicular lower extremity pain. 08/05/2024 Spinal stenosis, lumbar region with neurogenic claudication (ICD-10 - M48.062) Printed information regarding SCS trial / placement given to patient at a prior visit. Discussed SCS therapy at great length with patient on 07/01/24: risks, potential benefits and alternatives reviewed with patient at that visit and again discussed at today's visit. Patient has expressed desire to proceed towards an SCS trial. Psychological evaluation, as required by insurer, has been completed: no contraindications to SCS therapy noted. Plan a SCS trial. Consider referral to a physician with privileges for SCS system implantation if SCS trial results in efficacy. 08/05/2024 Vertebrogenic low back pain (ICD-10 - M54.51) Chronic axial lumbosacral spine pain and radicular lower extremity pain. 07/01/2024 Other jail (current) drug therapy (ICD-10 - Z79.899) Patient was given a copy of the Treatment Agreement he signed on 05/18/24. 2022 opioid (OUD) risk tool score = 1. This places the patient in the low risk category. Patient has not requested opioid therapy. 06/01/2024 Hypersomnia, unspecified (ICD-10 - G47.10) Plan to obtain [facility] Sleep Study report from 03/2024. 06/01/2024 Other extermination supervisor (current) drug therapy (ICD-10 - Z79.899) Patient [...] unprescribed, and / or illicit controlled substance(s). 08/05/2024 Other jail (current) drug therapy (ICD-10 - Z79.899) Patient was given a copy of the Treatment Agreement he signed on 05/18/24. 2022 opioid (OUD) risk tool score = 1. This places the patient in the low risk category. Patient has not requested opioid therapy. 08/24/2024 Spinal stenosis, lumbar region with neurogenic claudication (ICD-10 - M48.062) Printed information regarding SCS trial / placement given to patient at a prior visit. Discussed SCS therapy at great length with patient on 07/01/24: risks, potential benefits and alternatives reviewed with patient at that visit and again discussed at today's visit. Patient has expressed desire to proceed towards an SCS trial. Psychological evaluation, as required by insurer, has been completed: no contraindications to SCS therapy noted. Plan a SCS trial. Consider referral to a physician with privileges for SCS system implantation if SCS trial results in efficacy. 08/24/2024 Other Start cefazolin (per weight based guidelines), IV x 1 prior to procedure. 06/01/2024 Other Continue above medications as currently prescribed by PCP. Case reviewed, treatment plan approved, and visit note edited by Dr. Luciano. 07/01/2024 Other PLAN OF TREATMENT Next Appt Details Provider Name:Dipak Castellanos son, 08/27/2024 08:00:00 AM, [address] [facility], [place], [place], [id number], Insurance Providers Payer Name Payer Address Payer Phone Subscriber Number Group Number Insured Name Patient Relationship to Insured Coverage Start Date Coverage End Date [facility] [address] [address] [place] [address] [phone] [id number] Deniz Wilkinson Self - patient is the insured MEDICAL [...] Erythrocytosis COVID-19 Bronchitis with bronchospam Major depression Mood disorder s/p remote traumatic brain injury Benign prostatic hyperplasia Kidney cancer (2014) Falls Sleep disorder / excessive daytime sleep iness Surgical History Surgery Date(Month/Year) Knee surgery, right, performed in [place], [place], 1973 Exploratory laparotomy, performed in [place], [place], 1981 Vasectomy, performed in [place], [place] , 1982 Appendectomy, peformed in [place], [place], 1985 Cholecystectomy, performed in [place], [place], 1992 Repair of scalp (fall), performed in [place], [place], 2000 Nephrectomy, partial, right (kidney cancer), performed at [facility] in [place], [place], 2014 Cataract surgery, performed in [place], [place], 2022 Hospitalization History Reason Date(Month/Year) Heart problems, fall, 2004
--- OUTSIDE RECORDS SUMMARY | 2024-08-26 12:01 | XMS_ITS ---
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 Extractor Operator Name Role Phone Raimundo Mobley APRN Primary Care Provider Alexey Luciano MD, Dipak Unavailable [phone] Tapan Frost DO Unavailable Unavailable ALLERGIES Allergen (clinical drug ingredient) Drug/Non Drug Allergy documented on EMR Reaction Allergy Type Onset Date Status procaine (uncoded) palpitations Allergy Active meperidine meperidine palpitations Drug Allergy Ac tive magnesium citrate magnesium citrate stomach upset Drug Aller gy Active REASON FOR VISIT Patient states he is here today to talk about stimulator {low back pain} MEDICATIONS Medication SIG (Take, Route, Frequency, Duration) Notes Start Date End Date Status sertraline 100 mg 1 tab(s) orally once a day for 30 day(s) Active tamsulosin 0.4 mg 2 cap(s) orally once a day Active timolol ophthalmic maleate 0.5% 1 gtt in each affected eye once a day for 30 day(s) Active tiZANidine 6 mg 1 cap orally TID prn spasm Active Vitamin D3 50 mcg 1 tab(s) orally once a day for 30 day(s) Active gabapentin 300 mg 1 cap orally TID Active albuterol 90 mcg/inh 2 puff(s) inhaled e very 6 hours Active diphenhydrAMINE 25 mg 1 cap(s) orally ev slime 6 hours, as needed Active docusate sodium 100 mg 1 cap(s) orally 2 times a day, as needed Active finasteride 5 mg 1 tab(s) orally [...] W/U Status Risk SNOMED Code Notes Problem 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) Active confirmed Anxiety disorder (007409565) VITAL SIGNS Height 70 in 08/05/2024 Weight 163 lbs 08/05/2024 BMI 23.39 kg/m2 08/05/2024 Blood pressure systolic 126 mm Hg 08/05/20 Blood pressure diastolic 79 mm Hg 024 Temperature 98.1 degrees Fahrenheit 08/05/20 Oximetry 96 % 08/05/2024 Patient reported weight due to fall risk Encounters Encounter Location Date Provider Diagnosis [facility] [place] [place], [place] [id number] 08/05/2024 Dipak Luciano Other specified anxiety disorders F41.8 ; Vertebrogenic low back pain M54.51 ; Spinal stenosis, lumbar region with neurogenic claudication M48.062 and Other half-way (current) drug therapy Z79.899 ASSESSMENTS Encounter Date Diagnosis Assessment Notes Treatment Notes Treatment Clinical Notes 08/05/2024 Other specified anxiety disorders (ICD-10 - F41.8) Plan monitored anesthesia care. 08/05/2024 Vertebrogenic low back pain (ICD-10 - [...] if SCS trial results in efficacy. 08/05/2024 Other meterman (current) drug therapy (ICD-10 - Z79.899) Patient was given a copy of the Treatment Agreement he signed on 05/18/242022 opioid (OUD) risk tool score = 1. This places the patient in the low risk category. Patient has not requested opioid therapy. PLAN OF TREATMENT Treatment Notes Assessment Notes Other specified anxiety disorders Plan m onitored anesthesia care. Vertebrogenic low back pain Chronic axia l [...] implantation if SCS trial results in efficacy. Other meterman (current) drug therapy Patient was given a copy of the Treatment Agreement he signed on 05/18/24. 2022 opioid (OUD) risk tool score = 1. This places the patient in the low risk category. Patient has not requested opioid therapy. Next Appt Details Follow Up: SCS Trial., Gonzaleso n: Provider Name:Dipak Castellanos son, 08/27/2024 08:00:00 AM, [address] [facility], [place], [place], [id number], History and Physical Notes * HPI (History of Present Illness) Category Sub-Category Detail Notes Lumbar Spine injury: multiple falls - debilitating fall 09/2005, smaller falls since that time not requiring medical attention pain in the bilateral low back. This pain is described as constant aching with an intermittent burning sensation. This pain is associated with significant muscular tightness / spasm pain. 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); home exercises / stretching therapy with history of no benefit (2020); ice therapy with history of transient benefit (2022); injection therapy performed at a pain center in [place], [place] - injections and LRFA procedure with history of no benefit (2020) Medication history: Neurontin 300 mg; Za naflex 6 mg Previous Imaging/Studies MRI of the C-spine and T-spine on 04/23/24; of the L- spine on 02/21/24 Sleep study on 03/19/24 X-rays of the L-spine on EMG / NCV of the upper and low er extremities on 03/18/24 Physician/Clinic notes Notes received from: [facility]; see scanned documents, reviewed Physical Examination Category Sub-Category Detail Notes ENT Hearing: grossly intact Chest Shape and expansion: normal expa nsion, [...]
--- OUTSIDE RECORDS SUMMARY | 2024-08-26 12:01 | XMS_ITS ---
Author Name Unknown Organization [facility] Address [address] [place], [place] [id number] Care Team Providers Care Shade Cutter Name Role Phone Raimundo Mobley APRN Primary Care Provider Alexey Luciano MD, Dipak Unavailable [phone] Tapan Frost DO Unavailable Unavailable ALLERGIES Allergen (clinical drug ingredient) Drug/Non Drug Allergy documented on EMR Reaction Allergy Type Onset Date Status procaine (uncoded) palpitations Allergy Active meperidine meperidine palpitations Drug Allergy Ac tive magnesium citrate magnesium citrate stomach upset Drug Aller gy Active REASON FOR VISIT Low back pain MEDICATIONS Medication SIG (Take, Route, Frequency, Duration) Notes Start Date End Date Status sertraline 100 mg 1 tab(s) orally once a day for 30 day(s) Active Vitamin D3 50 mcg 1 tab(s) orally once a day for 30 day(s) Active tiZANidine 6 mg 1 cap orally TID prn spasm Active timolol ophthalmic maleate 0.5% 1 gtt in each affected eye once a day for 30 day(s) Active tamsulosin 0.4 mg 2 cap(s) orally once a day Active gabapentin 300 mg 1 cap orally TID Active finasteride 5 mg 1 tab(s) orally once a day for 30 day(s) Active docusate sodium 100 mg 1 cap(s) orally 2 times a day, as needed Active diphenhydrAMINE 25 mg 1 cap(s) orally ev slime 6 hours, as needed Active albuterol 90 mcg/inh 2 puff(s) inhaled e very 6 hours Active Encounters Encounter Location Date Provider Diagnosis [facility] [place] [address] [place] [address] 08/24/2024 Dipak Luciano Other specified anxiety disorders F41.8 ; Vertebrogenic low back pain M54.51 and Spinal stenosis, lumbar region with neurogenic claudication M48.062 ASSESSMENTS Encounter Date Diagnosis Assessment Notes Treatment Notes Treatment Clinical Notes 08/24/2024 Other specified anxiety disorders (ICD-10 - F41.8) Plan monitored anesthesia care. 08/24/2024 Vertebrogenic low back pain (ICD-10 - M54.51) Chronic axial lumbosacral spine pain and radicular lower extremity pain. 08/24/2024 Spinal stenosis, lumbar region with neurogenic [...] guidelines), IV x 1 prior to procedure. PLAN OF TREATMENT Treatment Notes Assessment Notes [...] if SCS trial results in efficacy. Other Start cefazolin (per weight based guidelines), IV x 1 prior to procedure. Next Appt Details Follow Up: 3 days., Reason: Provider Name:Dipak Castellanos son, 08/27/2024 08:00:00 AM, [address] [facility], [place], [place], [id number], Procedure Notes * Category Sub-Category Detail Notes Spinal column stimulator trial Facility: [facility] Risks and benefits of the procedure: collin rangel previously discussed with the patient; see the signed consent form. The patient wished to proceed. A pre-procedure evaluation was conducted that included review of the patient's vital signs Electrode locations: the contacts spanne d the following level(s): midline 16 contact lead, from the inferior aspect of T6 to the mid aspect of T9. The central point of stimulation was noted to be at the mid T7 level Sedation: after blood pressure , EKG and SaO2 monitors were applied, IV sedation by CONCRETE STONE FINISHER as needed Start time: 1427 End time: 1449 Position: the patient was plac ed in the prone position. The patient was padded with a cushioned headrest and a thoracic and lumbar support device Prep: ChloraPrep from the scapular regions to the superior aspect of the gluteal folds. A sterile drape was utilized to frame the prepped area so as to create a sterile field over the insertion site(s). This sterile drape covered the entire torso and the C-arm x-ray tube assembly (while in lateral projection view). An additional sterile cover was used to drape the C-arm image intensifier Supplies, equipment/ technique: a steril e epidural tray which included a 5 ml zhza-ba-jmaliomend syringe; syringes plus 18 ga. and 25 ga. needles; 22 ga. spinal needle; ChloraPrep; sterile gauze; one 14 ga. [employer] epidural needle and associated 16 contact lead; surgical and C-arm sterile drapes; steri-strips, benzoin and Medipore Dress-It dressing(s) x 1; sterile gown, mask and gloves; 20 ml volume 1% lidocaine and 40 ml volume preservative free sodium chloride. Equipment: lead aprons and thyroid duarte, C-arm fluoroscopy with archiving capability. The sterile epidural injection tray was opened utilizing sterile technique and the patient was prepped and draped in a sterile fashion. Sterile technique was maintained throughout the procedure Procedure: lumbar: with an orie ntation based upon 5 lumbar-appearing vertebrae, the interspace isolated and infiltrated with 1% lidocaine was T12-L1. A 14 ga. epidural needle was inserted at the T12-L1 level. The needle was advanced at an approximate 30-45 degree angle to the skin through the ligamentum flavum utilizing the ubpl-jt-edbtzxcllt-technique. 0.9% sodium chloride was used as the injectate; cwlw-dh-whjpttmiea was noted to be brisk with the needle insertion. Confirmation of passage of the lead into, and superiorly within, the epidural space was verified: the lead was advanced to it's final epidural placement under live A/P fluoroscopy with lateral views utilized to confirm lead positioning in the posterior aspect of the epidural space. Subsequent lead stimulation, as performed by the Agustin Ronquillo footwear sales representative under the direction of Dr. Luciano, was with adequate paresthesia coverage of the patient's pain. The epidural needle was removed under live fluoroscopy to prevent lead migration. The lead was secured to the skin via benzoin and steri-strips. A sterile dressing was applied over the lead site Fluoroscopy: a midline A/P image was obtained and the above interspace was identified for the insertion of the needle. Lead manipulation through the epidural space was visualized under live A/P fluoroscopy. Lateral views were utilized to confirm needle depth and posterior epidural space lead position; the lead was confirmed to be in the dorsal epidural space. The final images were archived on a disc at the surgery center Discharge: the patient reported adequate coverage of pain with stimulation post-procedure. Post procedure instructions were given patient by Dr. Luciano. A follow-up appointment was noted for the patient and the patient was discharged with no untoward effects. Stimulator operation instructions were given to the patient by the Agustin Ronquillo footwear sales representative. The patient was instructed to go to the ER if experiencing perceived neurological complications. The patient was provided with contact information for the Agustin Ronquillo footwear sales representative as needed for trial Electrode stimulation: lead position rosio ting / contact stimulation was performed after lead placement, during the procedure as well as post-procedure; the patient reported adequate paresthesia coverage in the typical locations of pain Progress Notes * Examination Category Sub-Category Detail Notes General examination Heart: rhythm is re gular Lungs: clear to auscultatio n Extremities: Appearance/ Psychiatric: no apparent dis tress; pleasant and interacting appropriately; calm Skin: History and Physical Notes * HPI (History [...] BLE (R>L) weakness in the BLE Previous Imaging/Studies MRI of the C-spine and T-spine on 04/23/24; of the L- spine on 02/21/24 Sleep study on 03/19/24 X-rays of the L-spine on EMG / NCV of the upper and low er extremities on 03/18/24
--- OUTSIDE RECORDS SUMMARY | 2024-08-26 12:01 | XMS_ITS ---
Author Name Unknown Organization [facility] Address [address] [place], [place] [id number] Care Team Providers Care Analog Circuit Designer Name Role Phone Raimundo Mobley APRN Primary Care Provider Alexey Luciano MD, Dipak Unavailable [phone] Tapan Frost DO Unavailable Unavailable ALLERGIES Allergen (clinical drug ingredient) Drug/Non Drug Allergy documented on EMR Reaction Allergy Type Onset Date Status procaine (uncoded) palpitations Allergy Active meperidine meperidine palpitations Drug Allergy Ac tive magnesium citrate magnesium citrate stomach upset Drug Aller gy Active REASON FOR REFERRAL Reason Pre-spinal cord stim ulator trial psychological evaluation Diagnosis 1 Spinal stenosis, lum bar region with neurogenic claudication (M48.062) Referral Organization [facility] Referring Provider First Name Dipak Referring Provider Last Name Ankita Referring Provider Speciality Pain Manag ement Referred Provider Roberto Wiley Referred Provider Specialty Psychologist General Notes Anca Gonzales 2023 10:56:47 AM > referral faxed, Anca Gonzales 08/03/2024 03:25:42 PM > Psych eval completed 07/31/24 Referral Priority Routine Referral Appointment Date 07/31/2024 REASON FOR VISIT Patient states he is [...] neurogenic claudication (M48.062) Active confirmed Neurogenic claudication (271922683) VITAL SIGNS Height 70 in 07/01/2024 Weight 174 lbs 07/01/2024 BMI 24.96 kg/m2 07/01/2024 Blood pressure systolic 127 mm Hg 07/01/20 24 Blood pressure diastolic 78 mm Hg 024 Temperature 97.8 degrees Fahrenheit 07/01/20 24 Oximetry 98 % 07/01/2024 Patient reported weight due to fall risk Encounters Encounter Location Date Provider Diagnosis [facility] [address] [place], [place] [id number] 07/01/2024 Dipak Luciano Vertebrogenic low ba ck pain M54.51 ; Spinal stenosis, lumbar region with neurogenic claudication M48.062 and Other buttermaker continuous churn (current) drug therapy Z79.899 ASSESSMENTS Encounter Date [...] as required by insurer. 07/01/2024 Other buttermaker continuous churn (current) drug therapy (ICD-10 - Z79.899) Patient was given a copy of the Treatment Agreement he signed on 05/18/24. 2022 opioid (OUD) risk tool score = 1. This places the patient in the low risk category. Patient has not requested opioid therapy. 07/01/2024 Other PLAN OF TREATMENT Treatment Notes [...] psychological evaluation as required by insurer. Other detention (current) drug therapy Patient was given a copy of the Treatment Agreement he signed on 05/18/24. 2022 opioid (OUD) risk tool score = 1. This places the patient in the low risk category. Patient has not requested opioid therapy. 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
[2024-08-26 13:17] LABS: Basophils # 0.1 10^3/uL (0.0-0.1); Basophils % 0.7 %; Eosinophils # 0.1 10^3/uL (0.0-0.8); Eosinophils % 1.2 %; Hematocrit 50.1 % (37-53); Lymphocytes # 2.3 10^3/uL (0.8-4.8); Lymphocytes % 26.9 %; Mean Corpuscular HGB Conc 31.9 g/dL (30-55); Mean Corpuscular Hemoglobin 25.8 pg (27-33); Mean Corpuscular Volume 80.8 fl (82-101); Mean Platelet Volume 9.3 fL (7.4-10.4); Monocytes # 0.8 10^3/uL (0.2-0.9); Monocytes % 8.8 %; Neutrophils # 5.34 10^3/uL (1.8-7.7); Neutrophils % 62.2 %; Nucleated Red Blood Cells % 0 %; Platelet Count 207 10^3/cmm (157-399); Red Cell Distribution Width 13.1 % (12.1-15.1); White Blood Count 8.59 10^3/uL (3.29-11.43)
--- NOTE | 2024-09-23 12:03 | PC.NURSE ---
Per Perla Farr STEEL RULE INSPECTOR-pt had recent labs this month in ER, based on those results pt does not need phlebotomy this month. Pt voiced understanding/lc
== END 2024-09-24 23:59 | disposition home or self-care (01) ==
PROVIDERS: Nurse Practitioner Family; PCP Clinical Nurse Specialist Adult Health; Visit Provider Internal Medicine Hematology & Oncology
DX: Z53.9 Procedure and treatment not carried out, unspecified reason (principal)
CPT/HCPCS: 85025; 99195

== ENCOUNTER → 2024-10-01 08:07 | Outpatient (BNVA) | payer MEDICARE, SELFPAY | PROVIDERS: PCP Clinical Nurse Specialist Adult Health; Visit Provider Orthopaedic Surgery | DX: Z48.89 Encounter for other specified surgical aftercare (principal) | CPT/HCPCS: 99024 ==

== ENCOUNTER 2024-10-21 12:44 | Oncology outpatient (recurring) (ONCR) | payer MEDICARE, SELFPAY ==
--- OUTSIDE RECORDS SUMMARY | 2024-10-21 12:48 | XMS_ITS | Patient Health Record ---
Author Name Unknown Organization [facility] Address [address] [place], [place] [id number] Care Team Providers Care Office Automation Clerk Name Role Phone Raimundo Mobley APRN Primary Care Provider Alexey Luciano MD, Dipak Unavailable [phone] Tapan Frost DO Unavailable Unavailable Kasey Delacruz Unavailable [phone] Allergies Allergen (clinical drug ingredient) Drug/Non Drug [...] Speciality Orthopedic Surgery Referred Organization [facility] Referred Provider Dipak Luciano Referred Address [address], [id number], Referred Provider Specialty Pain Managem ent General Notes Lacey Brower 03:11:29 PM >Sent for insurance verification. Need SSN also., Deisi Quinn 03/24/2024 04:39:07 PM > [employer] MEDICARE. NO COPAY. Referral Priority Routine Reason Pre-spinal cord stim ulator trial psychological evaluation Diagnosis 1 Spinal stenosis, lum bar region with neurogenic claudication (M48.062) Referral Organization [facility] Referring Provider First Name Dipak Referring Provider Last Name Ankita Referring Provider Speciality Pain Manag ement Referred Provider Roberto iWley Referred Provider Specialty Psychologist General Notes Anca Gonzales 2023 10:56:47 AM > referral faxedChristian Brenda 08/03/2024 03:25:42 PM > Psych eval completed 07/31/24 Referral Priority Routine Referral Appointment Date 07/31/2024 Reason Evaluation for possi ble placement of SCS / IPG system Diagnosis 1 Spinal stenosis, lum bar region with neurogenic claudication (M48.062) Referral Organization [facility] Referring Provider First Name Dipak Referring Provider [...] W/U Status Risk Notes Problem Solitary sacroiliitis (972001519) Sacroiliitis, not elsewhere classified (M46.1) Active confirmed Problem Anxiety disorder (562974941) 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) Active confirmed Problem Hypersomnia (43476074) Hypersomnia, unspecified (G47.10) Active confirmed Problem Chronic pain (34486246) Other chronic pain (G89.29) Active confirmed Problem Backache (931487235) Dorsalgia, unspecified (M54.9) Active confirmed Problem Long-term current use of drug therapy (478079761) Other residential (current) drug therapy (Z79.899) Active confirmed Problem Neurogenic claudication (373503059) Spinal stenosis, lumbar region with neurogenic claudication (M48.062) Active confirmed Problem Low back pain (finding) (053953520) Vertebrogenic low back pain (M54.51) Active confirmed [...] Location Date Provider Diagnosis [facility] [address] [place], [place] [id number] 06/01/2024 Kasey Arzola Vertebrogenic low ba ck pain M54.51 ; Sacroiliitis, not elsewhere classified M46.1 ; Hypersomnia, unspecified G47.10 and Other residential (current) drug therapy Z79.899 [facility] [address] [place], [place] [id number] 07/01/2024 Dipak Luciano Vertebrogenic low ba ck pain M54.51 ; Spinal stenosis, lumbar region with neurogenic claudication M48.062 and Other 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up operator (current) drug therapy Z79.899 [facility] [address] [place], [place] [id number] 08/05/2024 Dipak Luciano Other specified anxiety disorders F41.8 ; Vertebrogenic low back pain M54.51 ; Spinal stenosis, lumbar region with neurogenic claudication M48.062 and Other residential (current) drug therapy Z79.899 [facility] [place] [address] [place] [address] 08/24/2024 Dipak Luciano Other specified anxiety disorders F41.8 ; Vertebrogenic low back pain M54.51 and Spinal stenosis, lumbar region with neurogenic claudication M48.062 [facility], [facility] [address] [place], [place] [id number] 08/27/2024 Dipak Luciano Vertebrogenic low ba ck pain M54.51 ; Other 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up operator (current) drug therapy Z79.899 and Spinal stenosis, lumbar region with neurogenic claudication M48.062 Assessments Encounter Date Diagnosis (ICD Code) Assessment Notes Treatment Notes Treatment Clinical Notes Section Notes 06/01/2024 Sacroiliitis, not elsewhere classified (ICD-10 - M46.1) 06/01/2024 Vertebrogenic low back pain (ICD-10 - M54.51) Consider treatment options pending evaluation by Dr. Luciano. Plan to obtain EMG / NCS reports completed at [facility] in 02/2024. Printed information regarding SCS [...] radicular lower extremity pain. 08/27/2024 Other 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up operator (current) drug therapy (ICD-10 - Z79.899) [...] and radicular lower extremity pain. 07/01/2024 Other residential (current) drug therapy (ICD-10 - Z79.899) Patient was given a copy of the Treatment Agreement he signed on 05/18/24. 2022 opioid (OUD) risk tool score = 1. This places the patient in the low risk category. Patient has not requested opioid therapy. 06/01/2024 Hypersomnia, unspecified (ICD-10 - G47.10) Plan to obtain [facility] Sleep Study report from 03/2024. 06/01/2024 Other 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up operator (current) drug therapy (ICD-10 - Z79.899) [...] / or illicit controlled substance(s). 08/05/2024 Other residential (current) drug therapy (ICD-10 - Z79.899) Patient [...] Start Date Coverage End Date [facility] [address] [address] [place] [id number] Deniz Wilkinson Self - patient is the [...] Surgery Date(Month/Year) Knee surgery, right, performed in [place], [place], 1973 Exploratory laparotomy, performed in [place], [place], 1981 Vasectomy, performed in [place], [place] , 1982 Appendectomy, peformed in [place], [place], 1985 Cholecystectomy, performed in [place], [place], 1992 Repair of scalp (fall), performed in [place], [place], 2000 Nephrectomy, partial, right (kidney cancer), performed at [facility] in [place], [place], 2014 Cataract surgery, performed in [place], [place], 2022 Hospitalization History Reason Date(Month/Year) Heart problems, 2001 Fall, 2004
--- OUTSIDE RECORDS SUMMARY | 2024-10-21 12:48 | XMS_ITS ---
Author Name Unknown Organization [facility] Address [address] [place], [place] [id number] Care Team Providers Care Bedspread Seamer Name Role Phone Raimundo Mobley APRN Primary Care Provider Alexey Luciano MD, Dipak Unavailable [phone] Tapan Frost DO Unavailable Unavailable Allergies Allergen [...] Active Encounters Encounter Location Date Provider Diagnosis [facility] [place] [address] [place], [place] [address] 08/24/2024 Dipak Luciano Other specified anxiety disorders F41.8 ; Vertebrogenic low back pain M54.51 and Spinal stenosis, lumbar region with neurogenic claudication M48.062 Assessments Encounter Date Diagnosis (ICD Code) Assessment Notes Treatment Notes Treatment Clinical Notes Section Notes 08/24/2024 Other specified anxiety disorders (ICD-10 [...] Detail Notes Spinal column stimulator trial Facility: [facility] Risks and benefits of the procedure: [...] SaO2 monitors were applied, IV sedation by BRANCH BILLING PAYROLL CLERK as needed Start time: 1427 End time: [...] epidural tray which included a 5 ml obkg-yn-vbojwcqbqy syringe; syringes plus 18 ga. and 25 ga. needles; 22 ga. spinal needle; ChloraPrep; sterile gauze; one 14 ga. [employer] epidural needle and associated 16 contact [...] skin through the ligamentum flavum utilizing the kfhh-xb-swvfvcoxux-technique. 0.9% sodium chloride was used as the injectate; fhba-uj-etyarjpelz was noted to be brisk with the needle insertion. Confirmation of passage of the lead into, and superiorly within, the epidural space was verified: the lead was advanced to it's final epidural placement under live A/P fluoroscopy with lateral views utilized to confirm lead positioning in the posterior aspect of the epidural space. Subsequent lead stimulation, as performed by the [employer] counter sales representative under the direction of Dr. [...] to the patient by the [employer] counter sales representative. The patient was instructed to go to the ER if experiencing perceived neurological complications. The patient was provided with contact information for the Agustin Ronquillo counter sales representative as needed for trial Electrode stimulation: lead position rosio ting / contact stimulation was performed after lead placement, during the procedure as well as post-procedure; the patient reported adequate paresthesia coverage in the typical locations of pain Progress Notes * Deniz WILKINSON DDOB:[birth year] (69 yo M)Acc No.[id number]:08/24/2024 Patient:?Minh Deniz D Provider:Liliam Luciano :1955???Age:69 Y???Sex:Male Robin e:08/24/2024 Address:[address] [place] [address] Pcp:Raimundo Mobley APRN Subjective: * Chief Complaints: * ???Low back pain * HPI: ???Lumbar Spine:?69 year old male presents with c/o pain?for?senior living duration?in the bilateral low back. This pain [...] prior to procedure.?? * Procedures:?Spinal column stimulator trial:?Facility:?[facility].?Risks and benefits of the procedure:?were [...] SaO2 monitors were applied, IV sedation by BRANCH BILLING PAYROLL CLERK as needed.?Start time:?1427.?End time:?1449.?Position:?the patient was placed [...] epidural tray which included a 5 ml lkum-mh-mzhndnnwcq syringe; syringes plus 18 ga. and 25 ga. needles; 22 ga. spinal needle; ChloraPrep; sterile gauze; one 14 ga. [employer] epidural needle and associated 16 contact [...] skin through the ligamentum flavum utilizing the gsii-dh-aztfintury-technique. 0.9% sodium chloride was used as the injectate; xfum-lx-hpjfcsepjz was noted to be brisk with the needle insertion. Confirmation of passage of the lead into, and superiorly within, the epidural space was verified: the lead was advanced to it's final epidural placement under live A/P fluoroscopy with lateral views utilized to confirm lead positioning in the posterior aspect of the epidural space. Subsequent lead stimulation, as performed by the [employer] counter sales representative under the direction of Dr. [...] to the patient by the [employer] counter sales representative. The patient was instructed to go to the ER if experiencing perceived neurological complications. The patient was provided with contact information for the [employer] counter sales representative as needed for trial.? * Procedure Codes:?08064 Percu taneous implantation of neurostimulator electrode array, epidural * Follow Up:?3 days. 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 History and Physical Notes * HPI (History of Present Illness) Category Sub-Category Detail Notes Category Not es Lumbar Spine injury: multiple falls - debilitating [...] 04/23/24; of the L- spine on 02/21/24 HPI forwarded from prior office visit note Sleep study on 03/19/24 X-rays of the L-spine on EMG / NCV of the upper and low er extremities on 03/18/24 Examination Category Sub-Category Detail Notes Category Not es General examination Heart: rhythm is regular Lungs: clear to auscultatio n Extremities: Appearance/ Psychiatric: no apparent dis tress; pleasant and interacting appropriately; calm Skin:
--- OUTSIDE RECORDS SUMMARY | 2024-10-21 12:48 | XMS_ITS ---
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) Active confirmed Vital Signs Temperature 98.1 degrees Fahrenheit 08/05/20 Blood pressure systolic 126 mm Hg 08/05/20 Blood pressure diastolic 79 mm Hg 024 Height 70 in 08/05/2024 Weight 163 lbs 08/05/2024 Oximetry 96 % 08/05/2024 BMI 23.39 kg/m2 08/05/2024 Patient reported weight due to fall risk Encounters Encounter Location Date Provider Diagnosis [facility], [address] [id number] 08/05/2024 Dipak Luciano Other specified anxiety disorders F41.8 ; Vertebrogenic low back pain M54.51 ; Spinal stenosis, lumbar region with neurogenic claudication M48.062 and Other fci (current) drug therapy Z79.899 Assessments Encounter Date Diagnosis (ICD Code) Assessment Notes Treatment Notes Treatment Clinical Notes Section Notes 08/05/2024 Other specified anxiety disorders (ICD-10 [...] SCS trial results in efficacy. 08/05/2024 Other fci (current) drug therapy (ICD-10 - Z79.899) Patient [...] if SCS trial results in efficacy. 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 2022 opioid (OUD) risk tool score = 1. This places the patient in the low risk category. Patient has not requested opioid therapy. 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 This pain [...] time not requiring medical attention.?Physician/Clinic notes:?Notes received from:?[facility]; see scanned documents, reviewed.?Previous Imaging/Studies:?Sleep study?on [...] therapy performed at a pain center in [place], [place] - injections and LRFA procedure with history of no benefit (2020).?Medication history:?Neurontin 300 mg; Zanaflex?6 mg.? * ROS:?14 point review of systems negative. * Medical History:? * Surgical History:?Knee surge ry, right, performed in [place], [place], 1973Exploratory laparotomy, performed in [place], [place], 1981Vasectomy, performed in [place], [place], 1982Appendectomy, peformed in [place], [place], 1985Cholecystectomy, performed in [place], [place], 1992Repair of scalp (fall), performed in [place], [place], 2000Nephrectomy, partial, right (kidney cancer), performed at [facility] in [place], [place], 2014Cataract surgery, performed in [place], [place], 2022 * Hospitalization/Major Diagno stic Procedure:?Heart [...] no. ???History of welding/metal work: no. ???Travel: [place] (1994) and [place] (1996). * Medications:?Takingalbuterol 90 mcg/inh aerosol 2 [...] treatment options discussed with patient ???2.?PDMP ? [facility] : 08/04/2024 10:55 AM - database accessed prior to today's visit in anticipation of possible opioid prescribing; unable to document review due to no matching patient found ?? 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 Plan: * Treatment: 2.?Other specified anxiety d isorders? Notes: Plan monitored anesthesia care.?? 3.?Vertebrogenic low back pa in? Notes: Chronic axial lumbosacral spine pain and radicular lower extremity pain.?? 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 and Physical Notes * HPI (History [...] the BLE Previous Therapy Previous therapy: geophysical computer apy with history of no benefit (2020); home exercises / stretching therapy with history of no benefit (2020); ice therapy with history of transient benefit (2022); injection therapy performed at a pain center in [place], [place] - injections and LRFA procedure with [...] received from: [facility]; see scanned documents, reviewed Physical Examination Category Sub-Category Detail Notes Section Note s ENT Hearing: grossly intact Chest Shape and expansion: normal expa nsion, equal bilaterally, respirations even and unlabored Neurological Psychiatric: alert and conversant Musculoskeletal Gait: presents in wheelchair Outcome Assessment: Findings:: Positive ?Care plan documented:: Yes - provi aylin in home care Dermatology Skin inspection: pink, warm, dry, and int act General General appearence: well groomed, well no urished Build: average Head: normocephalic Eyes Conjunctiva: without injection
[2024-10-21 13:16] VITALS: BP 144/79; PULSE 75; RESP 18; TEMP 37.1; O2SAT 94
[2024-10-21 13:23] LABS: Basophils % 0.4 %; Eosinophils # 0.2 10^3/uL (0.0-0.8); Eosinophils % 2.4 %; Hematocrit 48.4 % (37-53); Lymphocytes # 1.7 10^3/uL (0.8-4.8); Lymphocytes % 24.2 %; Mean Corpuscular HGB Conc 31.2 g/dL (30-55); Mean Corpuscular Hemoglobin 24.4 pg (27-33); Mean Corpuscular Volume 78.2 fl (82-101); Mean Platelet Volume 9.6 fL (7.4-10.4); Monocytes # 0.8 10^3/uL (0.2-0.9); Monocytes % 10.7 %; Neutrophils # 4.35 10^3/uL (1.8-7.7); Nucleated Red Blood Cells % 0 %; Platelet Count 179 10^3/cmm (157-399); Red Blood Count 6.19 10^6/uL (3.85-5.65); Red Cell Distribution Width 15.6 % (12.1-15.1); White Blood Count 7.02 10^3/uL (3.29-11.43)
[2024-10-21 14:17] LABS: Slide Review Slide Review Perform
--- NOTE | 2024-10-21 14:21 | PC.NURSE ---
Lab work review by Garfield Kaplan with the choice of patients call since he was feeling good and didnt have phlebotomy last month Patient did request no phlebotomy since he had been doing well and probably like to wait until next month and have labs drawn.mm
== END 2024-10-24 23:59 | disposition home or self-care (01) ==
LOC: ONCMED 12:46
PROVIDERS: Nurse Practitioner Family; PCP Clinical Nurse Specialist Adult Health; Visit Provider Internal Medicine
DX: D75.1 Secondary polycythemia (principal)
CPT/HCPCS: 36415; 85025

== ENCOUNTER 2024-11-16 12:54 | Oncology outpatient (recurring) (ONCR) | payer MEDICARE, SELFPAY ==
[2024-11-16 13:45] LABS: Basophils # 0.1 10^3/uL (0.0-0.1); Eosinophils # 0.2 10^3/uL (0.0-0.8); Eosinophils % 2.4 %; Hematocrit 48.6 % (37-53); Lymphocytes # 2.1 10^3/uL (0.8-4.8); Lymphocytes % 28.5 %; Mean Corpuscular HGB Conc 31.3 g/dL (30-55); Mean Corpuscular Hemoglobin 24.5 pg (27-33); Mean Corpuscular Volume 78.4 fl (82-101); Mean Platelet Volume 8.9 fL (7.4-10.4); Monocytes # 0.7 10^3/uL (0.2-0.9); Monocytes % 10.2 %; Neutrophils # 4.17 10^3/uL (1.8-7.7); Neutrophils % 57.6 %; Nucleated Red Blood Cells % 0 %; Platelet Count 221 10^3/cmm (157-399); Red Cell Distribution Width 16.1 % (12.1-15.1); White Blood Count 7.23 10^3/uL (3.29-11.43)
[2024-11-16 15:19] VITALS: BP 153/78; PULSE 80; RESP 16; TEMP 36.6; O2SAT 95
== END 2024-11-24 23:59 | disposition home or self-care (01) ==
LOC: ONCMED 12:55
PROVIDERS: Nurse Practitioner Family; PCP Clinical Nurse Specialist Adult Health; Visit Provider Internal Medicine
DX: D75.1 Secondary polycythemia (principal); Z79.899 Other long term (current) drug therapy
CPT/HCPCS: 85025; 99195

== ENCOUNTER 2024-12-23 13:38 | Oncology outpatient (recurring) (ONCR) | payer MEDICARE, SELFPAY ==
[2024-12-23 14:33] LABS: Basophils # 0.1 10^3/uL (0.0-0.1); Basophils % 0.9 %; Eosinophils # 0.2 10^3/uL (0.0-0.8); Eosinophils % 2.4 %; Hematocrit 46.3 % (37-53); Lymphocytes % 29.9 %; Mean Corpuscular HGB Conc 31.3 g/dL (30-55); Mean Corpuscular Hemoglobin 23.7 pg (27-33); Mean Corpuscular Volume 75.7 fl (82-101); Mean Platelet Volume 8.8 fL (7.4-10.4); Monocytes # 0.6 10^3/uL (0.2-0.9); Monocytes % 9.2 %; Neutrophils # 3.87 10^3/uL (1.8-7.7); Neutrophils % 57.3 %; Nucleated Red Blood Cells % 0 %; Platelet Count 243 10^3/cmm (157-399); Red Blood Count 6.12 10^6/uL (3.85-5.65); Red Cell Distribution Width 14.7 % (12.1-15.1); White Blood Count 6.75 10^3/uL (3.29-11.43)
[2024-12-23 14:49] LABS: Alanine Aminotransferase 10 U/L (0-41); Albumin Level 4.4 g/dL (3.5-5.2); Alkaline Phosphatase 70 U/L (40-130); Aspartate Amino Transferase 15 U/L (0-40); Blood Urea Nitrogen 12 mg/dL (8-23); Calcium 8.9 mg/dL (8.5-10.5); Carbon Dioxide 23 mmol/L (22-29); Chloride 99 mmol/L (98-107); Globulin 2.6 g/dL (1.3-4.6); Glomerular Filtration Rate 112.5 mL/min (90-130); Glucose 96 mg/dL (65-115); Osmolality Calculated 278 mOsm/kg (285-295); Sodium 134 mmol/L (136-145); Total Bilirubin 0.4 mg/dL (0.15-1.2)
== END 2024-12-25 23:59 | disposition home or self-care (01) ==
LOC: ONCMED 13:39
PROVIDERS: Nurse Practitioner; PCP Clinical Nurse Specialist Adult Health; Visit Provider Internal Medicine
DX: D75.1 Secondary polycythemia (principal)
CPT/HCPCS: 36415; 80053; 85025

== ENCOUNTER 2025-01-20 11:58 | Oncology outpatient (recurring) (ONCR) | payer MEDICARE, SELFPAY ==
[2025-01-20 12:56] LABS: Basophils # 0.1 10^3/uL (0.0-0.1); Basophils % 0.9 %; Eosinophils # 0.1 10^3/uL (0.0-0.8); Eosinophils % 1.7 %; Hematocrit 46.8 % (37-53); Lymphocytes # 2.1 10^3/uL (0.8-4.8); Lymphocytes % 29.8 %; Mean Corpuscular HGB Conc 30.8 g/dL (30-55); Mean Corpuscular Hemoglobin 23.3 pg (27-33); Mean Corpuscular Volume 75.7 fl (82-101); Monocytes # 0.7 10^3/uL (0.2-0.9); Monocytes % 9.7 %; Neutrophils # 3.99 10^3/uL (1.8-7.7); Neutrophils % 57.6 %; Nucleated Red Blood Cells % 0 %; Platelet Count 225 10^3/cmm (157-399); Red Blood Count 6.18 10^6/uL (3.85-5.65); Red Cell Distribution Width 14.5 % (12.1-15.1); White Blood Count 6.92 10^3/uL (3.29-11.43)
[2025-01-20 13:18] LABS: Alanine Aminotransferase 11 U/L (0-41); Albumin Level 4.4 g/dL (3.5-5.2); Alkaline Phosphatase 73 U/L (40-130); Blood Urea Nitrogen 12 mg/dL (8-23); Carbon Dioxide 24 mmol/L (22-29); Chloride 105 mmol/L (98-107); Globulin 2.7 g/dL (1.3-4.6); Glomerular Filtration Rate 96.4 mL/min (90-130); Glucose 106 mg/dL (65-115); Osmolality Calculated 288 mOsm/kg (285-295); Sodium 139 mmol/L (136-145); Total Bilirubin 0.3 mg/dL (0.15-1.2); Total Protein 7.1 g/dL (6.6-8.7)
[2025-01-20 14:04] LABS: Anion Gap 14.7 (5-19); Aspartate Amino Transferase 19 U/L (0-40); Potassium 4.7 mmol/L (3.5-5.1)
== END 2025-01-22 23:59 | disposition home or self-care (01) ==
PROVIDERS: Nurse Practitioner; PCP Clinical Nurse Specialist Adult Health; Visit Provider Internal Medicine
DX: D75.1 Secondary polycythemia (principal); E53.8 Deficiency of other specified B group vitamins; Z79.899 Other long term (current) drug therapy
CPT/HCPCS: 36415; 80053; 85025; 99214

== ENCOUNTER 2025-03-17 12:47 | Oncology outpatient (recurring) (ONCR) | payer MEDICARE, SELFPAY ==
[2025-03-17 13:45] LABS: Basophils # 0.1 10^3/uL (0.0-0.1); Basophils % 0.8 %; Eosinophils # 0.2 10^3/uL (0.0-0.8); Hematocrit 44.4 % (37-53); Lymphocytes % 32.3 %; Mean Corpuscular HGB Conc 29.5 g/dL (30-55); Mean Corpuscular Hemoglobin 21.8 pg (27-33); Mean Platelet Volume 9.2 fL (7.4-10.4); Monocytes # 0.6 10^3/uL (0.2-0.9); Monocytes % 9.1 %; Neutrophils # 3.29 10^3/uL (1.8-7.7); Neutrophils % 54.5 %; Nucleated Red Blood Cells % 0 %; Platelet Count 242 10^3/cmm (157-399); Red Cell Distribution Width 16.1 % (12.1-15.1); White Blood Count 6.04 10^3/uL (3.29-11.43)
[2025-03-17 14:58] LABS: Alanine Aminotransferase 11 U/L (0-41); Albumin Level 4.2 g/dL (3.5-5.2); Alkaline Phosphatase 60 U/L (40-130); Anion Gap 16.2 (5-19); Aspartate Amino Transferase 19 U/L (0-40); Blood Urea Nitrogen 14 mg/dL (8-23); Carbon Dioxide 23 mmol/L (22-29); Chloride 103 mmol/L (98-107); Creatinine Clr Calc Pharmacy 95.7512; Globulin 2.7 g/dL (1.3-4.6); Glomerular Filtration Rate 112.5 mL/min (90-130); Glucose 112 mg/dL (65-115); Osmolality Calculated 287 mOsm/kg (285-295); Potassium 4.2 mmol/L (3.5-5.1); Sodium 138 mmol/L (136-145); Total Bilirubin 0.2 mg/dL (0.15-1.2); Total Protein 6.9 g/dL (6.6-8.7)
== END 2025-03-24 23:59 | disposition home or self-care (01) ==
PROVIDERS: Nurse Practitioner Family; PCP Clinical Nurse Specialist Adult Health; Visit Provider Internal Medicine
DX: D75.1 Secondary polycythemia (principal); E53.8 Deficiency of other specified B group vitamins; Z79.899 Other long term (current) drug therapy
CPT/HCPCS: 36415; 80053; 85025; 99214

== ENCOUNTER 2025-04-15 13:24 | Oncology outpatient (recurring) (ONCR) | payer MEDICARE, SELFPAY ==
[2025-04-15 14:37] LABS: Basophils # 0.1 10^3/uL (0.0-0.1); Basophils % 0.9 %; Eosinophils # 0.2 10^3/uL (0.0-0.8); Eosinophils % 2.8 %; Lymphocytes # 1.8 10^3/uL (0.8-4.8); Lymphocytes % 31.9 %; Mean Corpuscular HGB Conc 29.6 g/dL (30-55); Mean Corpuscular Hemoglobin 21.5 pg (27-33); Mean Corpuscular Volume 72.5 fl (82-101); Mean Platelet Volume 9.4 fL (7.4-10.4); Monocytes # 0.5 10^3/uL (0.2-0.9); Monocytes % 8.5 %; Neutrophils # 3.14 10^3/uL (1.8-7.7); Neutrophils % 55.4 %; Nucleated Red Blood Cells % 0 %; Platelet Count 237 10^3/cmm (157-399); Red Blood Count 6.48 10^6/uL (3.85-5.65); White Blood Count 5.67 10^3/uL (3.29-11.43)
== END 2025-04-24 23:59 | disposition home or self-care (01) ==
LOC: ONCMED 13:25
PROVIDERS: Nurse Practitioner Family; PCP Clinical Nurse Specialist Adult Health; Visit Provider Internal Medicine
DX: D75.1 Secondary polycythemia (principal)
CPT/HCPCS: 85025

== ENCOUNTER 2025-05-19 13:25 | Oncology outpatient (recurring) (ONCR) | payer MEDICARE, SELFPAY ==
[2025-05-19 14:34] LABS: Basophils # 0.1 10^3/uL (0.0-0.1); Eosinophils # 0.3 10^3/uL (0.0-0.8); Eosinophils % 4.3 %; Lymphocytes # 1.9 10^3/uL (0.8-4.8); Lymphocytes % 27.8 %; Mean Corpuscular HGB Conc 29.8 g/dL (30-55); Mean Corpuscular Hemoglobin 21.4 pg (27-33); Mean Corpuscular Volume 71.9 fl (82-101); Mean Platelet Volume 9.1 fL (7.4-10.4); Monocytes # 0.7 10^3/uL (0.2-0.9); Monocytes % 10.7 %; Neutrophils # 3.81 10^3/uL (1.8-7.7); Neutrophils % 55.9 %; Nucleated Red Blood Cells % 0 %; Platelet Count 233 10^3/cmm (157-399); Red Blood Count 6.54 10^6/uL (3.85-5.65); Red Cell Distribution Width 18.7 % (12.1-15.1); White Blood Count 6.81 10^3/uL (3.29-11.43)
[2025-05-19 14:46] LABS: Alanine Aminotransferase 13 U/L (0-41); Albumin Level 4.6 g/dL (3.5-5.2); Alkaline Phosphatase 72 U/L (40-130); Aspartate Amino Transferase 22 U/L (0-40); Blood Urea Nitrogen 14 mg/dL (8-23); Calcium 9.1 mg/dL (8.5-10.5); Carbon Dioxide 22 mmol/L (22-29); Chloride 102 mmol/L (98-107); Globulin 2.8 g/dL (1.3-4.6); Glucose 87 mg/dL (65-115); Osmolality Calculated 284 mOsm/kg (285-295); Sodium 137 mmol/L (136-145); Total Bilirubin 0.4 mg/dL (0.15-1.2); Total Protein 7.4 g/dL (6.6-8.7)
[2025-05-19 14:47] LABS: Anion Gap 17.2 (5-19); Potassium 4.2 mmol/L (3.5-5.1)
== END 2025-05-24 23:59 | disposition home or self-care (01) ==
PROVIDERS: Nurse Practitioner Family; PCP Clinical Nurse Specialist Adult Health; Visit Provider Nurse Practitioner
DX: D75.1 Secondary polycythemia (principal)
CPT/HCPCS: 80053; 85025

== ENCOUNTER 2025-07-14 09:51 | Oncology outpatient (recurring) (ONCR) | payer MEDICARE, SELFPAY ==
[2025-07-14 10:22] LABS: Hematocrit 45.0 % (37-53); Hemoglobin 13.20 g/dL (11.27-16.99); Mean Corpuscular HGB Conc 29.3 g/dL (30-55); Mean Corpuscular Hemoglobin 21.3 pg (27-33); Mean Corpuscular Volume 72.6 fl (82-101); Nucleated Red Blood Cells % 0 %; Platelet Count 218 10^3/cmm (157-399); Red Blood Count 6.20 10^6/uL (3.85-5.65); White Blood Count 6.12 10^3/uL (3.29-11.43)
[2025-07-14 10:44] LABS: Alanine Aminotransferase 12 U/L (0-41); Albumin Level 4.5 g/dL (3.5-5.2); Alkaline Phosphatase 73 U/L (40-130); Anion Gap 14.8 (5-19); Aspartate Amino Transferase 15 U/L (0-40); Blood Urea Nitrogen 19 mg/dL (8-23); Calcium 9.0 mg/dL (8.5-10.5); Carbon Dioxide 26 mmol/L (22-29); Chloride 101 mmol/L (98-107); Creatinine Clr Calc Pharmacy 93.9855; Ferritin 9 ng/mL (30-400); Globulin 2.7 g/dL (1.3-4.6); Glucose 109 mg/dL (65-115); Iron 25 ug/dL (59-158); Osmolality Calculated 287 mOsm/kg (285-295); Potassium 4.8 mmol/L (3.5-5.1); Sodium 137 mmol/L (136-145); Total Iron Binding Capacity 489 mcg/dl; Total Protein 7.2 g/dL (6.6-8.7); Unsaturated Iron Binding 464 ug/dL (112-347)
[2025-07-14 11:21] LABS: Vitamin B12 > 2000 pg/mL (232-1245)
[2025-07-14 12:00] VITALS: BP 142/84; PULSE 74; RESP 118
== END 2025-07-25 23:59 | disposition home or self-care (01) ==
PROVIDERS: PCP Clinical Nurse Specialist Adult Health; Visit Provider Nurse Practitioner
DX: D75.1 Secondary polycythemia (principal); E53.8 Deficiency of other specified B group vitamins; Z79.899 Other long term (current) drug therapy
CPT/HCPCS: 36415; 80053; 82607; 82728; 83540; 83550; 83921; 85025; 99195; 99214

== ENCOUNTER 2025-08-11 12:40 | Oncology outpatient (recurring) (ONCR) | payer MEDICARE, SELFPAY ==
[2025-08-11 13:19] LABS: Hematocrit 47.0 % (37-53); Hemoglobin 14.60 g/dL (11.27-16.99); Mean Corpuscular HGB Conc 31.1 g/dL (30-55); Mean Corpuscular Hemoglobin 24.1 pg (27-33); Mean Corpuscular Volume 77.7 fl (82-101); Nucleated Red Blood Cells % 0 %; Platelet Count 216 10^3/cmm (157-399); Red Blood Count 6.05 10^6/uL (3.85-5.65); White Blood Count 6.53 10^3/uL (3.29-11.43)
[2025-08-11 13:36] LABS: Alanine Aminotransferase 12 U/L (0-41); Albumin Level 4.5 g/dL (3.5-5.2); Alkaline Phosphatase 59 U/L (40-130); Anion Gap 15.9 (5-19); Aspartate Amino Transferase 21 U/L (0-40); Blood Urea Nitrogen 19 mg/dL (8-23); Calcium 9.1 mg/dL (8.5-10.5); Carbon Dioxide 25 mmol/L (22-29); Chloride 102 mmol/L (98-107); Creatinine Clr Calc Pharmacy 93.5320; Globulin 2.7 g/dL (1.3-4.6); Glucose 113 mg/dL (65-115); Iron 55 ug/dL (59-158); Osmolality Calculated 291 mOsm/kg (285-295); Potassium 3.9 mmol/L (3.5-5.1); Sodium 139 mmol/L (136-145); Total Iron Binding Capacity 471 mcg/dl; Total Protein 7.2 g/dL (6.6-8.7); Unsaturated Iron Binding 416 ug/dL (112-347)
== END 2025-08-24 23:59 | disposition home or self-care (01) ==
PROVIDERS: PCP Clinical Nurse Specialist Adult Health; Visit Provider Nurse Practitioner
DX: D75.1 Secondary polycythemia (principal); E53.8 Deficiency of other specified B group vitamins; Z79.899 Other long term (current) drug therapy
CPT/HCPCS: 36415; 80053; 83540; 83550; 85025; 99214

== ENCOUNTER 2025-09-08 09:50 | Oncology outpatient (recurring) (ONCR) | payer MEDICARE, SELFPAY ==
[2025-09-08 10:18] LABS: Hematocrit 50.9 % (37-53); Hemoglobin 16.10 g/dL (11.27-16.99); Mean Corpuscular HGB Conc 31.6 g/dL (30-55); Mean Corpuscular Hemoglobin 26.0 pg (27-33); Mean Corpuscular Volume 82.2 fl (82-101); Nucleated Red Blood Cells % 0 %; Platelet Count 183 10^3/cmm (157-399); Red Blood Count 6.19 10^6/uL (3.85-5.65); White Blood Count 5.59 10^3/uL (3.29-11.43)
[2025-09-08 10:56] LABS: Alanine Aminotransferase 13 U/L (0-41); Albumin Level 4.4 g/dL (3.5-5.2); Alkaline Phosphatase 62 U/L (40-130); Anion Gap 16.1 (5-19); Aspartate Amino Transferase 17 U/L (0-40); Blood Urea Nitrogen 22 mg/dL (8-23); Calcium 8.9 mg/dL (8.5-10.5); Carbon Dioxide 25 mmol/L (22-29); Chloride 100 mmol/L (98-107); Creatinine Clr Calc Pharmacy 93.7875; Globulin 2.3 g/dL (1.3-4.6); Glucose 102 mg/dL (65-115); Osmolality Calculated 288 mOsm/kg (285-295); Potassium 4.1 mmol/L (3.5-5.1); Sodium 137 mmol/L (136-145); Total Protein 6.7 g/dL (6.6-8.7)
[2025-09-08 14:00] VITALS: BP 136/76; PULSE 78; RESP 16; TEMP 36.6; O2SAT 95
== END 2025-09-24 23:59 | disposition home or self-care (01) ==
PROVIDERS: Internal Medicine; PCP Clinical Nurse Specialist Adult Health; Visit Provider Nurse Practitioner
DX: D75.1 Secondary polycythemia (principal); R03.0 Elevated blood-pressure reading, without diagnosis of hypertension; E61.1 Iron deficiency; Z79.899 Other long term (current) drug therapy
CPT/HCPCS: 36415; 80053; 85025; 99195; 99214

== ENCOUNTER 2025-10-13 10:26 | Oncology outpatient (recurring) (ONCR) | payer MEDICARE, SELFPAY ==
[2025-10-13 10:51] LABS: Hematocrit 54.5 % (37-53); Hemoglobin 18.10 g/dL (11.27-16.99); Mean Corpuscular HGB Conc 33.2 g/dL (30-55); Mean Corpuscular Hemoglobin 28.5 pg (27-33); Mean Corpuscular Volume 85.7 fl (82-101); Nucleated Red Blood Cells % 0 %; Platelet Count 188 10^3/cmm (157-399); Red Blood Count 6.36 10^6/uL (3.85-5.65); White Blood Count 6.12 10^3/uL (3.29-11.43)
[2025-10-13 12:07] VITALS: BP 150/89; PULSE 69; RESP 17; TEMP 36.7; O2SAT 96
[2025-10-13 12:25] LABS: Alanine Aminotransferase 13 U/L (0-41); Albumin Level 4.5 g/dL (3.5-5.2); Alkaline Phosphatase 62 U/L (40-130); Aspartate Amino Transferase 17 U/L (0-40); Blood Urea Nitrogen 19 mg/dL (8-23); Calcium 9.1 mg/dL (8.5-10.5); Carbon Dioxide 21 mmol/L (22-29); Chloride 100 mmol/L (98-107); Globulin 2.7 g/dL (1.3-4.6); Glucose 97 mg/dL (65-115); Osmolality Calculated 276 mOsm/kg (285-295); Sodium 132 mmol/L (136-145); Total Protein 7.2 g/dL (6.6-8.7)
[2025-10-13 12:29] LABS: Anion Gap 15.6 (5-19); Potassium 4.6 mmol/L (3.5-5.1)
[2025-10-13 12:40] LABS: Vitamin B12 1405 pg/mL (232-1245)
== END 2025-10-24 23:59 | disposition home or self-care (01) ==
PROVIDERS: Nurse Practitioner; PCP Clinical Nurse Specialist Adult Health; Visit Provider Internal Medicine Medical Oncology
DX: D75.1 Secondary polycythemia (principal); E53.8 Deficiency of other specified B group vitamins; R03.0 Elevated blood-pressure reading, without diagnosis of hypertension
CPT/HCPCS: 80053; 82607; 85025; 99195; 99214

== ENCOUNTER → 2025-10-14 15:49 | Outpatient (BNVA) | payer MEDICARE, SELFPAY | PROVIDERS: PCP Clinical Nurse Specialist Adult Health; Referring Provider Internal Medicine Medical Oncology; Visit Provider Internal Medicine | DX: J44.9 Chronic obstructive pulmonary disease, unspecified (principal); Z87.891 Personal history of nicotine dependence | CPT/HCPCS: 99204; Q3014 ==

== ENCOUNTER 2025-11-23 20:00 | Oncology outpatient (recurring) (ONCR) | payer MEDICARE, SELFPAY ==
[2025-11-22 11:16] VITALS: PULSE 95; RESP 18; O2SAT 95
[2025-11-30 13:38] LABS: CALR Exon 9 Mutation NOT DETECTED (NOT DETECTED); JAK2 Exon 12 Mutation NOT DETECTED (NOT DETECTED); MPL Exon 10 Mutation NOT DETECTED (NOT DETECTED); Specimen Source blood
== END 2025-11-24 23:59 | disposition home or self-care (01) ==
LOC: SLEEP 11-24 00:01 → ONCMED 11-24 09:23
PROVIDERS: PCP Clinical Nurse Specialist Adult Health; Visit Provider Internal Medicine Medical Oncology
DX: G47.33 Obstructive sleep apnea (adult) (pediatric) (principal); G47.36 Sleep related hypoventilation in conditions classified elsewhere
CPT/HCPCS: 36415; 81219; 81270; 81279; 81339; 94060; 95810; J7613